=== PATIENT | male | born 1960 | race African-American/Black ===

== ENCOUNTER 2016-06-07 19:01 | Inpatient (IN) | payer MEDICAID ==
[~2016-06-07] VITALS: Ht 175.3 cm; Wt 91.2 kg
[2016-06-07 19:30] VITALS: BP 127/87
[2016-06-07] MEDS ORDERED: METFORMIN HCL500 M1 ORAL (19:32)
[2016-06-07] MEDS ORDERED: ATORVASTATIN CA20 MG ORAL (19:32)
[2016-06-07] MEDS ORDERED: BENAZEPRIL HCL20 MG ORAL (19:32)
[2016-06-07] MEDS ORDERED: ASPIR 8181 MG ORAL (19:32)
[2016-06-07] MEDS ORDERED: CARVEDILOL25 MG ORAL (19:32)
[2016-06-07] MEDS ORDERED: Famotidine 20 MG/ 2ML VIAL IVP ONE (20:15)
[2016-06-07] MEDS ORDERED: Aspirin Baby 81mg ORAL ONE (20:15)
[2016-06-07] MEDS ORDERED: Nitroglycerin 2% oint pkt TOPIC ONE (20:15)
[2016-06-07 21:23] LABS: INR 1.3 (0.9-1.1); PROTHROMBIN TIME 13.4 SEC (9.30-11.50)
[2016-06-07 21:33] LABS: ALANINE AMINOTRANSFERASE 24 U/L (3-41); ALBUMIN/GLOBULIN RATIO 1.8 (1.0-2.7); ANION GAP 18 (5-15); ASPARTATE AMINO TRANSFERASE 34 U/L (5-40); BASOPHILS % (AUTO) 1.1 % (0.0-2.0); CALCIUM 9.3 mg/dL (8.6-10.2); CARBON DIOXIDE 20 mEQ/L (20-30); CHLORIDE 104 mEQ/L (98-107); CREATININE 1.4 mg/dL (0.7-1.2); EOSINOPHILS % (AUTO) 0.5 % (0.0-3.0); GLOMERULAR FILTRATION RATE > 60 mL/min (>60); HEMOLYSIS 28; LIPASE 21 U/L (< 60); LYMPHOCYTES % (AUTO) 23.2 % (20.0-45.0); MEAN CORPUSCULAR HEMOGLOBIN 27.5 PG (27.0-31.0); MEAN CORPUSCULAR HGB CONC 33.4 G/DL (32.0-36.0); MEAN CORPUSCULAR VOLUME 82 FL (80-99); MEAN PLATELET VOLUME 8.4 FL (6.5-10.1); MONOCYTES % (AUTO) 8.2 % (1.0-10.0); NEUTROPHILS % (AUTO) 66.9 % (45.0-75.0); PLATELET COUNT 159 K/UL (150-450); POTASSIUM 4.1 mEQ/L (3.4-4.9); RED BLOOD COUNT 4.52 M/UL (4.70-6.10); RED CELL DISTRIBUTION WIDTH 14.2 % (11.6-14.8); SODIUM 142 mEQ/L (135-145); TOTAL PROTEIN 6.2 g/dL (6.6-8.7); TROPONIN I < 0.30 ng/mL (<=0.30); WHITE BLOOD COUNT 8.7 K/UL (4.8-10.8)
[2016-06-07 21:53] LABS: BILIRUBIN,DIRECT 0.5 mg/dL (0.1-0.3)
--- NOTE | 2016-06-07 22:22 | Emergency Room Report ---
History of Present Illness General Chief Complaint: General Complaint Source: Patient Present Illness HPI The patient presents with severe orthopnea. This has been going on for several days. He's had a pacemaker placed in the past. He also presents with severe epigastric pain for the last 2 days. He's taken lemon juice and other over-the- counter things to help with that. The pain is sharp and is epigastric area radiating up towards his back and his chest. The patient denies having this problem before. The pain is currently 8/10, burning and sharp pressure, not radiating. After finding a flutter on his EKG the patient admits to have atrial flutter in the past. He states he is taking his medications as they have been prescribed. He states he has had an enlarged heart since childhood. No fevers, cough, sore throat, chest pain per se, productive sputum, headache, rashes, NVD, dysuria, extremity/calf pain. Allergies: Coded Allergies: No Known Allergies (Unverified , 06/07/16) Patient History Past Medical History: see triage record Past Surgical History: pacemaker Social History: Reports: smoking Social History Narrative at home Reviewed Nursing Documentation: PMH: Agreed, PSxH: Agreed Nursing Documentation-PMH Past Medical History: No History, Except For Hx Pacemaker: Yes - LEFT SIDE Review of Systems All Other Systems: negative except mentioned in HPI Physical Exam Vital Signs Date Time Temp Pulse Resp B/P Pulse Ox O2 Delivery O2 Flow Rate FiO2 06/07/16 19:25 98.1 127 20 127/87 98 Room Air Sp02 EP Interpretation: reviewed, normal General Appearance: well appearing, no apparent distress, GCS 15 Head: normocephalic Eyes: bilateral eye PERRL, bilateral eye normal inspection ENT: moist mucus membranes Neck: supple Respiratory: no respiratory distress, crackles, rales, other - L pacer Cardiovascular #1: tachycardia, irregularly irregular, edema - trace bilaterally Cardiovascular #2: 2+ radial (R) Gastrointestinal: normal bowel sounds, no guarding, distended, hepatomegaly Musculoskeletal: digits/nails normal, gait/station normal, no calf tenderness, pelvis stable Neurologic: alert, oriented x3, grossly normal Psychiatric: mood/affect normal Skin: normal inspection, warm/dry Medical Decision Making Diagnostic Impression: Primary Impression: Atrial flutter Qualified Codes: I48.92 - Unspecified atrial flutter Additional Impressions: CHF (congestive heart failure) Qualified Codes: I50.9 - Heart failure, unspecified Epigastric pain Hepatic congestion ER Course Patient presents with epigastric pain and orthopnea. The latter sounds classically for CHF. Ddx: AMI, ACS, CHF, bronchitis, COPD, pneumonia, PE. Emergent evaluation for AMI, arrhythmia, with EKG, labs, CXR. Treatment with aspirin, nitrates, lasix. EKG with atrial flutter with variable conduction, but rapid rate. Hemodynamically stable therefore not cardiovert. Will treat with amiodarone and lasix. After treatment with amiodarone the patient's heart rate is improved. However the patient still is in failure. He says been treated with Lasix. His x-ray shows congestive heart failure. Elevated D dimer needs to have PE excluded. CTA ordered. CTA against PE. + CHF, pericardial effusion. The patient is admitted to the hospital for cardiac stabilization in addition to that - diuresis. The patient to telemetry to the care of Dr. George. Laboratory Tests Test 06/07/16 20:47 06/07/16 23:00 White Blood Count 8.7 K/UL (4.8-10.8) Red Blood Count 4.52 M/UL (4.70-6.10) L Hemoglobin 12.4 G/DL (14.2-18.0) L Hematocrit 37.2 % (42.0-52.0) L Mean Corpuscular Volume 82 FL (80-99) Mean Corpuscular Hemoglobin 27.5 PG (27.0-31.0) Mean Corpuscular Hemoglobin Concent 33.4 G/DL (32.0-36.0) Red Cell Distribution Width 14.2 % (11.6-14.8) Platelet Count 159 K/UL (150-450) Mean Platelet Volume 8.4 FL (6.5-10.1) Neutrophils (%) (Auto) 66.9 % (45.0-75.0) Lymphocytes (%) (Auto) 23.2 % (20.0-45.0) Monocytes (%) (Auto) 8.2 % (1.0-10.0) Eosinophils (%) (Auto) 0.5 % (0.0-3.0) Basophils (%) (Auto) 1.1 % (0.0-2.0) Prothrombin Time 13.4 SEC (9.30-11.50) H Prothrombin Time INR 1.3 (0.9-1.1) H PTT 25 SEC (23-33) D-Dimer 640 ng/mL (<500) H Sodium Level 142 mEQ/L (135-145) Potassium Level 4.1 mEQ/L (3.4-4.9) Chloride Level 104 mEQ/L (98-107) Carbon Dioxide Level 20 mEQ/L (20-30) Anion Gap 18 (5-15) H Blood Urea Nitrogen 18 mg/dL (7-23) Creatinine 1.4 mg/dL (0.7-1.2) H Estimate Glomerular Filtration Rate > 60 mL/min (>60) Glucose Level 132 mg/dL (74-106) H Calcium Level 9.3 mg/dL (8.6-10.2) Total Bilirubin 1.4 mg/dL (0.0-1.2) H Direct Bilirubin 0.5 mg/dL (0.1-0.3) H Aspartate Amino Transferase (AST) 34 U/L (5-40) Alanine Aminotransferase (ALT) 24 U/L (3-41) Alkaline Phosphatase 42 U/L (40-129) Total Creatine Kinase 66 U/L (38-174) Troponin I < 0.30 ng/mL (<=0.30) Pro-B-Type Natriuretic Peptide 6765 pg/mL (0-125) H Total Protein 6.2 g/dL (6.6-8.7) L Albumin 4.0 g/dL (3.5-5.2) Globulin 2.2 g/dL Albumin/Globulin Ratio 1.8 (1.0-2.7) Lipase 21 U/L (< 60) Urine Color Yellow Urine Appearance Clear Urine pH 5 (4.5-8.0) Urine Specific [place] 1.015 (1.005-1.035) Urine Protein Negative (NEGATIVE) Urine Glucose (UA) Negative (NEGATIVE) Urine Ketones Negative (NEGATIVE) Urine Occult Blood Negative (NEGATIVE) Urine Nitrite Negative (NEGATIVE) Urine Bilirubin Negative (NEGATIVE) Urine Urobilinogen 4 MG/DL (0.0-1.0) H Urine Leukocyte Esterase Negative (NEGATIVE) Urine Opiates Screen Negative (NEGATIVE) Urine Barbiturates Screen Negative (NEGATIVE) Phencyclidine (PCP) Screen Negative (NEGATIVE) Urine Amphetamines Screen Negative (NEGATIVE) Urine Benzodiazepines Screen Negative (NEGATIVE) Urine Cocaine Screen Negative (NEGATIVE) Urine Marijuana (THC) Screen Negative (NEGATIVE) EKG Diagnostic Results Rate: tachycardiac Rhythm: other - atrial flutter with rapid conduction ST Segments: no acute changes Rhythm Strip Diag. Results EP Interpretation: yes Rhythm: no PVC's, other - atrial flutter Chest X-Ray Diagnostic Results EP Interpretation: Yes Findings: no effusion, no pneumothorax, other - inc cor, chf, pacer Number of Views: 1 CT/MRI/US Diagnostic Results CT/MRI/US Diagnostic Results : Imaging Test Ordered: CTA chest Impression Impression: Negative for evidence of acute pulmonary embolus Inadequate opacification of the thoracic aorta. While there is no evidence of aneurysm, dissection cannot be ruled out Dilated main pulmonary artery, indicative of pulmonary arterial hypertension Four-chamber cardiomegaly Calcification of the left ventricular apex, likely indicating old infarct and possible early left ventricular aneurysm formation. Diffuse groundglass opacity throughout the pulmonary parenchyma. Nonspecific, but most likely indicating pulmonary edema, given the other findings Borderline mediastinal lymphadenopathy Pacemaker Bilateral pleural effusions Small cystic spaces in both lungs, may be postinflammatory or indicate COPD changes Last Vital Signs Date Time Temp Pulse Resp B/P Pulse Ox O2 Delivery O2 Flow Rate FiO2 06/08/16 00:20 96.6 106 22 119/82 92 Nasal Cannula 2.0 Status: improved Disposition: ADMITTED INPATIENT Condition: Serious Referrals: NOT CHOSEN IPA/,REFERRING (PCP) Michael Bellamy M.D. Jun 07, 2016 22:22
[2016-06-07] MEDS ORDERED: Metoprolol 5mg/5ml Inj IVP PRN (22:30)
[2016-06-07] MEDS ORDERED: Enalaprilat 2.5mg/2ml Inj IV PRN (22:30)
[2016-06-07] MEDS ORDERED: Diltiazem 25mg/5ml IV PRN (22:30)
[2016-06-07] MEDS ORDERED: Nitroglycerin Subl 0.4mg tab (Bottle Of 25) SL PRN (22:30)
[2016-06-07] MEDS ORDERED: DuoNeb 0.5-3(2.5)mg/3ml neb HHN PRN (22:30)
[2016-06-07] MEDS ORDERED: Morphine Sulfate 2mg/ml Inj IVP PRN (22:30)
[2016-06-07] MEDS ORDERED: Miralax 17gm pkt ORAL PRN (22:30)
[2016-06-07 23:11] VITALS: BP 113/85
[2016-06-07 23:22] LABS: APPEARANCE,URINE CLEAR; KETONES,URINE NEGATIVE (NEGATIVE); LEUKOCYTE ESTERASE ,URINE NEGATIVE (NEGATIVE); NITRITE,URINE NEGATIVE (NEGATIVE); PH,URINE 5 (4.5-8.0); PROTEIN,URINE NEGATIVE (NEGATIVE); UROBILINOGEN,URINE 4 MG/DL (0.0-1.0)
[2016-06-08 00:20] VITALS: BP 119/82
[2016-06-08 04:20] VITALS: BP 127/80
[2016-06-08 08:34] VITALS: BP 121/81
--- NOTE | 2016-06-08 08:53 | Cardiology Progress Note ---
Assessment/Plan Assessment/Plan afib flutter chf cm? ?lv calcified aneurysm dm htn cri hyperlipidemia ppi need anticoagualtion heparin coumadin i doubt coverage with noacs dc coreg to metoprolo fo r hr control diuretics acei echo wath renal fx [id number] Objective Last 24 Hour Vital Signs Date Time Temp Pulse Resp B/P Pulse Ox O2 Delivery O2 Flow Rate FiO2 06/08/16 08:34 96.3 114 20 121/81 97 Nasal Cannula 3.0 06/08/16 07:57 97 Nasal Cannula 3.0 32 06/08/16 07:56 Nasal Cannula 3.0 32 06/08/16 07:55 114 20 Nasal Cannula 3.0 32 06/08/16 04:20 97.2 119 20 127/80 Nasal Cannula 2.0 06/08/16 03:39 107 06/08/16 00:20 96.6 106 22 119/82 92 Nasal Cannula 2.0 06/07/16 23:53 107 06/07/16 23:26 98.1 98 20 113/85 98 Nasal Cannula 2.0 06/07/16 23:11 98.1 98 20 113/85 98 Nasal Cannula 2.0 06/07/16 20:46 109/54 06/07/16 19:30 98.1 123 20 127/87 98 Room Air 06/07/16 19:25 98.1 127 20 127/87 98 Room Air Laboratory Tests Test 06/07/16 20:47 06/07/16 23:00 White Blood Count 8.7 K/UL (4.8-10.8) Red Blood Count 4.52 M/UL (4.70-6.10) L Hemoglobin 12.4 G/DL (14.2-18.0) L Hematocrit 37.2 % (42.0-52.0) L Mean Corpuscular Volume 82 FL (80-99) Mean Corpuscular Hemoglobin 27.5 PG (27.0-31.0) Mean Corpuscular Hemoglobin Concent 33.4 G/DL (32.0-36.0) Red Cell Distribution Width 14.2 % (11.6-14.8) Platelet Count 159 K/UL (150-450) Mean Platelet Volume 8.4 FL (6.5-10.1) Neutrophils (%) (Auto) 66.9 % (45.0-75.0) Lymphocytes (%) (Auto) 23.2 % (20.0-45.0) Monocytes (%) (Auto) 8.2 % (1.0-10.0) Eosinophils (%) (Auto) 0.5 % (0.0-3.0) Basophils (%) (Auto) 1.1 % (0.0-2.0) Prothrombin Time 13.4 SEC (9.30-11.50) H Prothromb Time International Ratio 1.3 (0.9-1.1) H Activated Partial Thromboplast Time 25 SEC (23-33) D-Dimer 640 ng/mL (<500) H Sodium Level 142 mEQ/L (135-145) Potassium Level 4.1 mEQ/L (3.4-4.9) Chloride Level 104 mEQ/L (98-107) Carbon Dioxide Level 20 mEQ/L (20-30) Anion Gap 18 (5-15) H Blood Urea Nitrogen 18 mg/dL (7-23) Creatinine 1.4 mg/dL (0.7-1.2) H Estimat Glomerular Filtration Rate > 60 mL/min (>60) Glucose Level 132 mg/dL (74-106) H Calcium Level 9.3 mg/dL (8.6-10.2) Total Bilirubin 1.4 mg/dL (0.0-1.2) H Direct Bilirubin 0.5 mg/dL (0.1-0.3) H Aspartate Amino Transf (AST/SGOT) 34 U/L (5-40) Alanine Aminotransferase (ALT/SGPT) 24 U/L (3-41) Alkaline Phosphatase 42 U/L (40-129) Total Creatine Kinase 66 U/L (38-174) Troponin I < 0.30 ng/mL (<=0.30) Pro-B-Type Natriuretic Peptide 6765 pg/mL (0-125) H Total Protein 6.2 g/dL (6.6-8.7) L Albumin 4.0 g/dL (3.5-5.2) Globulin 2.2 g/dL Albumin/Globulin Ratio 1.8 (1.0-2.7) Lipase 21 U/L (< 60) Urine Color Yellow Urine Appearance Clear Urine pH 5 (4.5-8.0) Urine Specific [place] 1.015 (1.005-1.035) Urine Protein Negative (NEGATIVE) Urine Glucose (UA) Negative (NEGATIVE) Urine Ketones Negative (NEGATIVE) Urine Occult Blood Negative (NEGATIVE) Urine Nitrite Negative (NEGATIVE) Urine Bilirubin Negative (NEGATIVE) Urine Urobilinogen 4 MG/DL (0.0-1.0) H Urine Leukocyte Esterase Negative (NEGATIVE) Urine Opiates Screen Negative (NEGATIVE) Urine Barbiturates Screen Negative (NEGATIVE) Phencyclidine (PCP) Screen Negative (NEGATIVE) Urine Amphetamines Screen Negative (NEGATIVE) Urine Benzodiazepines Screen Negative (NEGATIVE) Urine Cocaine Screen Negative (NEGATIVE) Urine Marijuana (THC) Screen Negative (NEGATIVE) AUBRIE TRIVEDI Jun 08, 2016 08:53
[2016-06-08] MEDS ORDERED: Carvedilol 25mg Tab ORAL SCH (09:00)
[2016-06-08] MEDS ORDERED: Heparin 5000 units/ml inj IV ONE ×3 (09:30→23:30)
[2016-06-08] MEDS ORDERED: Heparin 25,000u/D5W 500ml 500 ML IV SCH (09:30)
[2016-06-08] MEDS: Metoprolol 25mg tab ORAL SCH ×2 (09:52→22:21)
[2016-06-08] MEDS: Lisinopril 20mg tab ORAL SCH (09:54)
[2016-06-08] MEDS: Digoxin 0.5mg/2ml Inj IVP SCH (09:54)
[2016-06-08] MEDS: Aspirin EC 81mg tab ORAL SCH (09:54)
[2016-06-08 10:24] LABS: BASOPHILS % (AUTO) 0.8 % (0.0-2.0); EOSINOPHILS % (AUTO) 0.4 % (0.0-3.0); LYMPHOCYTES % (AUTO) 19.3 % (20.0-45.0); MEAN CORPUSCULAR HEMOGLOBIN 26.5 PG (27.0-31.0); MEAN CORPUSCULAR HGB CONC 32.6 G/DL (32.0-36.0); MEAN CORPUSCULAR VOLUME 81 FL (80-99); MEAN PLATELET VOLUME 7.1 FL (6.5-10.1); MONOCYTES % (AUTO) 8.4 % (1.0-10.0); NEUTROPHILS % (AUTO) 71.2 % (45.0-75.0); PLATELET COUNT 174 K/UL (150-450); RED BLOOD COUNT 4.69 M/UL (4.70-6.10); RED CELL DISTRIBUTION WIDTH 14.3 % (11.6-14.8); WHITE BLOOD COUNT 8.1 K/UL (4.8-10.8)
--- NOTE | 2016-06-08 10:35 | Diagnostic Imaging Report ---
ndication: Chest pain Technique: IV administration nonionic contrast. Spiral acquisitions obtained from the lung bases to the lung apices. Multiplanar and 3-D reconstructions were generated. Total dose length product 98 mGycm. CTDIvol(s) 12, 1:30, 23 mGy Comparison: None Findings: There is good quality opacification of the pulmonary arteries. However, apparently due to very sluggish flow, the thoracic aorta is barely if at all opacified. Although there is no evidence of thoracic aortic aneurysm, dissection cannot be confidently ruled out. There are no findings to suggest acute pulmonary embolus. There is dilatation of the main pulmonary artery, which measures 4 cm in diameter and is larger in caliber than the ascending thoracic aorta. There is no evidence of isolated right ventricular dilatation, but there is generalized cardiomegaly. There is calcification of the myocardium of the left ventricular apex. There is a left chest pacemaker. There is diffuse groundglass opacity throughout both lungs, occupying most of the lungs with some areas of sparing. There are is small right and trace left pleural effusion. There are scattered small cystic spaces in both lungs. There are numerous borderline enlarged mediastinal lymph nodes, with the largest right paratracheal node measuring 2.4 cm long axis dimension. The included portions of the thyroid are unremarkable. No axillary or supraclavicular or chest wall mass or adenopathy. The included upper abdominal anatomy is unremarkable. Impression: Negative for evidence of acute pulmonary embolus Inadequate opacification of the thoracic aorta. While there is no evidence of aneurysm, dissection cannot be ruled out Dilated main pulmonary artery, indicative of pulmonary arterial hypertension Four-chamber cardiomegaly Calcification of the left ventricular apex, likely indicating old infarct and possible early left ventricular aneurysm formation. Diffuse groundglass opacity throughout the pulmonary parenchyma. Nonspecific, but most likely indicating pulmonary edema, given the other findings Borderline mediastinal lymphadenopathy Pacemaker Bilateral pleural effusions Small cystic spaces in both lungs, may be postinflammatory or indicate COPD changes This agrees with the preliminary interpretation provided overnight by [facility]. The CT scanner at [facility] is accredited by the [employer] and the scans are performed using protocols designed to limit radiation exposure to as low as reasonably achievable to attain images of sufficient resolution adequate for diagnostic evaluation.
[2016-06-08 10:50] LABS: INR 1.3 (0.9-1.1); PROTHROMBIN TIME 13.6 SEC (9.30-11.50)
--- NOTE | 2016-06-08 10:57 | Diagnostic Imaging Report ---
Indication: Chest Technique: One view of the chest Comparison: none Findings: The heart is enlarged. There is a left chest AICD. Diffuse hazy opacities are seen throughout both lungs. There is slight blunting of left costophrenic sulcus Impression: Cardiomegaly Bilateral diffuse pulmonary hazy opacities, nonspecific, but suspect on the basis of congestive heart failure AICD This agrees with the preliminary interpretation provided by the emergency room physician
[2016-06-08 11:30] VITALS: BP 115/69
[2016-06-08] MEDS: NovoLOG Insulin Flexpen SUBQ SCH ×3 (11:30→21:00)
--- NOTE | 2016-06-08 14:37 | Cardiology Report ---
APPROVED REPORT EXAM: Two-dimensional and M-mode echocardiogram with Doppler and color Doppler. INDICATION Left ventricular function M-Mode DIMENSIONS IVSd0.8 (0.7-1.1cm)Left Atrium (MM)5.6 (1.6-4.0cm) LVDd8.1 (3.5-5.6cm)Aortic Root2.9 (2.0-3.7cm) PWd1.1 (0.7-1.1cm)Aortic Cusp Exc.2.0 (1.5-2.0cm) LVDs7.5 (2.5-4.0cm) PWs1.2 cm Severe left ventricular enlargement. Global left ventricular hypokinesis. Thinning of basal anterior septum with anterior wall, apical and septal akinesis. Left ventricular ejection fraction estimated to be less than 20%. No evidence of left ventricular hypertrophy. No evidence of pericardial fat or effusion. Severe left atrial enlargement by 2D. Moderate right atrial and mild right ventricular enlargement by 2D. Focal aortic valve sclerosis with adequate cusp excursion Thickened mitral valve leaflets with normal excursion. Mild mitral annulus and aortic root calcification. Pulmonic valve is well visualized. Normal tricuspid valve structure. IVC dilated at 2.9cm with no physiologic collapse. RA pressure of 20mmHg. Probable pacemaker wire present in the right side chambers. Echo density seen on left ventricle apex (Thrombis), consider KRISTIAN if clinically indicated. A color flow and spectral Doppler study was performed and revealed: No aortic regurgitation. Severe mitral regurgitation. Left ventricular diastolic dysfunction not obtainable due to A-FIB. Moderate tricuspid regurgitation. Tricuspid systolic velocities suggests peak right ventricular systolic pressure of 76 mmHg Consistent with severe pulmonary hypertension. Clinical criteria: JORGE Viera and were aware on 06/08/16 at 12pm
--- NOTE | 2016-06-08 14:54 | History and Physical ---
History of Present Illness General Date patient seen: Jun 08, 2016 Reason for Hospitalization: General Complaint Present Illness HPI 56 year old with PMHx of congenital cardiomyopathy and ICD, presented to ER with CC of increased shortness of breath for the last two days. He also had some gi symptoms with dyspepsia. Allergies: Coded Allergies: No Known Allergies (Unverified , 06/07/16) Medication History Scheduled Aspirin* (Aspir 81*), 81 MG ORAL DAILY, (Reported) Atorvastatin Calcium* (Atorvastatin Calcium*), 80 MG ORAL BEDTIME, (Reported) Benazepril Hcl* (Benazepril Hcl*), 20 MG ORAL EVERY 12 HOURS, (Reported) Carvedilol* (Carvedilol*), 25 MG ORAL EVERY 12 HOURS, (Reported) Metformin Hcl* (Metformin Hcl*), Unknown Dose ORAL TWICE A DAY, (Reported) Patient History Healthcare decision maker pt alert and oriented Resuscitation status Full Code Advanced Directive on File No Past Medical/Surgical History Past Medical/Surgical History: (1) ICD (implantable cardioverter-defibrillator) in place (2) CHF (congestive heart failure) Review of Systems Constitutional: Reports: weakness Respiratory: Reports: shortness of breath Physical Exam General Appearance: moderate distress Lines, tubes and drains: peripheral, central line HEENT: normocephalic, anicteric Neck: non-tender, normal alignment Respiratory/Chest: chest wall non-tender, lungs clear Last 24 Hour Vital Signs Date Time Temp Pulse Resp B/P Pulse Ox O2 Delivery O2 Flow Rate FiO2 06/08/16 11:30 97.2 96 20 115/69 100 Nasal Cannula 3.0 06/08/16 09:54 121/81 06/08/16 09:54 114 06/08/16 09:52 114 121/81 06/08/16 08:34 96.3 114 20 121/81 97 Nasal Cannula 3.0 06/08/16 08:00 102 06/08/16 07:57 97 Nasal Cannula 3.0 32 06/08/16 07:56 Nasal Cannula 3.0 32 06/08/16 07:55 114 20 Nasal Cannula 3.0 32 06/08/16 04:20 97.2 119 20 127/80 Nasal Cannula 2.0 06/08/16 03:39 107 06/08/16 00:20 96.6 106 22 119/82 92 Nasal Cannula 2.0 06/07/16 23:53 107 06/07/16 23:26 98.1 98 20 113/85 98 Nasal Cannula 2.0 06/07/16 23:11 98.1 98 20 113/85 98 Nasal Cannula 2.0 06/07/16 20:46 109/54 06/07/16 19:30 98.1 123 20 127/87 98 Room Air 06/07/16 19:25 98.1 127 20 127/87 98 Room Air Intake and Output 06/07/16 06/08/16 19:00 07:00 # Voids 2 Laboratory Tests Test 06/07/16 20:47 06/07/16 23:00 06/08/16 09:45 White Blood Count 8.7 K/UL (4.8-10.8) 8.1 K/UL (4.8-10.8) Red Blood Count 4.52 M/UL (4.70-6.10) L 4.69 M/UL (4.70-6.10) L Hemoglobin 12.4 G/DL (14.2-18.0) L 12.4 G/DL (14.2-18.0) L Hematocrit 37.2 % (42.0-52.0) L 38.1 % (42.0-52.0) L Mean Corpuscular Volume 82 FL (80-99) 81 FL (80-99) Mean Corpuscular Hemoglobin 27.5 PG (27.0-31.0) 26.5 PG (27.0-31.0) L Mean Corpuscular Hemoglobin Concent 33.4 G/DL (32.0-36.0) 32.6 G/DL (32.0-36.0) Red Cell Distribution Width 14.2 % (11.6-14.8) 14.3 % (11.6-14.8) Platelet Count 159 K/UL (150-450) 174 K/UL (150-450) Mean Platelet Volume 8.4 FL (6.5-10.1) 7.1 FL (6.5-10.1) Neutrophils (%) (Auto) 66.9 % (45.0-75.0) 71.2 % (45.0-75.0) Lymphocytes (%) (Auto) 23.2 % (20.0-45.0) 19.3 % (20.0-45.0) L Monocytes (%) (Auto) 8.2 % (1.0-10.0) 8.4 % (1.0-10.0) Eosinophils (%) (Auto) 0.5 % (0.0-3.0) 0.4 % (0.0-3.0) Basophils (%) (Auto) 1.1 % (0.0-2.0) 0.8 % (0.0-2.0) Prothrombin Time 13.4 SEC (9.30-11.50) H 13.6 SEC (9.30-11.50) H Prothromb Time International Ratio 1.3 (0.9-1.1) H 1.3 (0.9-1.1) H Activated Partial Thromboplast Time 25 SEC (23-33) 25 SEC (23-33) D-Dimer 640 ng/mL (<500) H Sodium Level 142 mEQ/L (135-145) Potassium Level 4.1 mEQ/L (3.4-4.9) Chloride Level 104 mEQ/L (98-107) Carbon Dioxide Level 20 mEQ/L (20-30) Anion Gap 18 (5-15) H Blood Urea Nitrogen 18 mg/dL (7-23) Creatinine 1.4 mg/dL (0.7-1.2) H Estimat Glomerular Filtration Rate > 60 mL/min (>60) Glucose Level 132 mg/dL (74-106) H Calcium Level 9.3 mg/dL (8.6-10.2) Total Bilirubin 1.4 mg/dL (0.0-1.2) H Direct Bilirubin 0.5 mg/dL (0.1-0.3) H Aspartate Amino Transf (AST/SGOT) 34 U/L (5-40) Alanine Aminotransferase (ALT/SGPT) 24 U/L (3-41) Alkaline Phosphatase 42 U/L (40-129) Total Creatine Kinase 66 U/L (38-174) Troponin I < 0.30 ng/mL (<=0.30) Pro-B-Type Natriuretic Peptide 6765 pg/mL (0-125) H Total Protein 6.2 g/dL (6.6-8.7) L Albumin 4.0 g/dL (3.5-5.2) Globulin 2.2 g/dL Albumin/Globulin Ratio 1.8 (1.0-2.7) Lipase 21 U/L (< 60) Urine Color Yellow Urine Appearance Clear Urine pH 5 (4.5-8.0) Urine Specific [place] 1.015 (1.005-1.035) Urine Protein Negative (NEGATIVE) Urine Glucose (UA) Negative (NEGATIVE) Urine Ketones Negative (NEGATIVE) Urine Occult Blood Negative (NEGATIVE) Urine Nitrite Negative (NEGATIVE) Urine Bilirubin Negative (NEGATIVE) Urine Urobilinogen 4 MG/DL (0.0-1.0) H Urine Leukocyte Esterase Negative (NEGATIVE) Urine Opiates Screen Negative (NEGATIVE) Urine Barbiturates Screen Negative (NEGATIVE) Phencyclidine (PCP) Screen Negative (NEGATIVE) Urine Amphetamines Screen Negative (NEGATIVE) Urine Benzodiazepines Screen Negative (NEGATIVE) Urine Cocaine Screen Negative (NEGATIVE) Urine Marijuana (THC) Screen Negative (NEGATIVE) Height (Feet): 5 Height (Inches): 9.00 Weight (Pounds): 201 Medications Current Medications Medications (Trade) Dose Ordered Sig/Ana Route PRN Reason Start Time Stop Time Status Last Admin Dose Admin Acetaminophen (Tylenol) 650 mg Q4H PRN ORAL FEVER 06/07/16 22:30 07/07/16 22:29 Albuterol/ Ipratropium (DuoNeb 0.5-3(2.5)mg/3ml) 3 ml EVERY 4 HOURS PRN HHN Shortness of Breath 06/07/16 22:30 06/12/16 22:29 Aspirin (Ecotrin) 81 mg DAILY ORAL 06/08/16 09:00 07/08/16 08:59 06/08/16 09:54 Atorvastatin Calcium (Lipitor) 80 mg BEDTIME ORAL 06/08/16 21:00 07/08/16 20:59 Digoxin (Lanoxin) 0.25 mg DAILY IVP 06/08/16 09:00 07/08/16 08:59 06/08/16 09:54 Diltiazem HCl (Cardizem) 10 mg EVERY HOUR PRN IV heart rate more than 120, 06/07/16 22:30 07/07/16 22:29 Enalaprilat (Vasotec) 2.5 mg EVERY 6 HOURS PRN IV sbp more than 160 06/07/16 22:30 07/07/16 22:29 Furosemide (Lasix) 40 mg EVERY 8 HOURS IV 06/08/16 09:30 07/08/16 09:29 06/08/16 09:54 Heparin Sodium/ Dextrose (Heparin) 500 ml @ 32.822 mls/ hr adjust per protocol IV 06/08/16 09:30 07/08/16 09:29 Insulin Aspart (NovoLOG) BEFORE MEALS AND HS SUBQ 06/08/16 11:30 07/08/16 11:29 Lisinopril 20 mg 20 mg DAILY ORAL 06/08/16 09:00 07/08/16 08:59 06/08/16 09:54 Metoprolol Tartrate (Lopressor) 5 mg EVERY HOUR PRN IVP heart rate more than 140 06/07/16 22:30 07/07/16 22:29 Metoprolol Tartrate (Lopressor) 25 mg Q12HR ORAL 06/08/16 09:30 07/08/16 09:29 06/08/16 09:52 Morphine Sulfate (Morphine Sulfate) 2 mg EVERY 4 HOURS PRN IVP severe Pain (Pain Scale 7-10) 06/07/16 22:30 06/14/16 22:29 Nitroglycerin (Ntg) 0.4 mg Every 5 Minutes PRN SL Prn Chest Pain 06/07/16 22:30 07/07/16 22:29 Ondansetron HCl (Zofran) 4 mg Q6H PRN IVP Nausea & Vomiting 06/07/16 22:30 07/07/16 22:29 Pantoprazole (Protonix) 40 mg DAILY ORAL 06/08/16 09:00 07/08/16 08:59 06/08/16 09:52 Temazepam (Restoril) 15 mg HSPRN PRN ORAL Insomnia 06/07/16 22:30 06/14/16 22:29 Warfarin Sodium (Coumadin per pharmacy) 1 ea DAILY PRN MISC Per rx protocol 06/08/16 12:00 07/08/16 11:59 Warfarin Sodium (Coumadin) 5 mg COUMADIN ONCE ORAL 06/08/16 17:00 06/08/16 17:01 Assessment/Plan Problem List: (1) Atrial flutter ICD Codes: I48.92 - Unspecified atrial flutter SNOMED: 1219328 Qualifiers: Qualified Codes: I48.92 - Unspecified atrial flutter (2) Pulmonary edema ICD Codes: J81.1 - Chronic pulmonary edema SNOMED: 38857724 (3) Ventricular mural thrombus SNOMED: 12462793 (4) ICD (implantable cardioverter-defibrillator) in place ICD Codes: Z95.810 - Presence of automatic (implantable) cardiac defibrillator SNOMED: 160925720, [id number] Assessment/Plan IV heparin cardio evaluation optimize cardiac meds. SHIMON WILLAMS Jun 08, 2016 14:54
[2016-06-08 16:00] VITALS: BP 121/68
[2016-06-08] MEDS ORDERED: Warfarin Sodium 5mg ORAL ONE (17:00)
[2016-06-08 20:00] VITALS: BP 117/75
[2016-06-08] MEDS ORDERED: Atorvastatin 80mg tab ORAL SCH (21:00)
--- NOTE | 2016-06-08 22:38 | Consultation ---
DATE OF CONSULTATION: 06/08/2016 CARDIOLOGY CONSULTATION CONSULTING PHYSICIAN: Maxime Plata M.D. REFERRING PHYSICIAN: Cate George M.D. REASON FOR EVALUATION: Shortness of breath and atrial fibrillation/flutter. HISTORY OF PRESENT ILLNESS: This is a middle-aged gentleman, who has a history of myocardial infarction 12 to 15 years ago, which apparently he had a stent placed. Subsequently, he has had a pacemaker implanted. He has multiple medical problems as delineated below. He presented to the hospital because of sensation of fullness in the abdominal area for about few days and caused him to have some shortness of breath at night, which he wake up because of shortness of breath. He uses one pillow, laid down for a few minutes and wake up again. He does not have any problem when he walks around. He does not have any chest pain, no pressure, heaviness, or discomfort of any kind in the chest. He does not have any shortness of breath with ambulation, when he lays down he has had this shortness of breath. He does not really have any heartburn or palpitation. No dizziness or lightheadedness. PAST MEDICAL HISTORY: Positive for diabetes, high blood pressure, high cholesterol, and a heart attack with stent placement pacemaker implantation, possibly asthma. No cancer. No stroke. No hepatitis or tuberculosis. He does have a remote history of ulcers. He does have some renal insufficiency. No liver problems, thyroid problems, anemia, or arthritis. ALLERGIES: He is not allergic to any medications. SOCIAL HISTORY: He smokes one pack, last time a couple of days. He does not drink alcoholic beverages. Denies any drug use. 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 REVIEW OF SYSTEMS: Gastrointestinal: No nausea, vomiting, diarrhea, or constipation. Genitourinary: Negative. Pulmonary: Negative. Constitutional: Negative. Neurologic: Negative. PHYSICAL EXAMINATION: GENERAL: Shows a middle-aged gentleman, in no apparent respiratory distress. NECK: Supple. No jugular venous distention. LUNGS: Decreased breath sounds noted. Crackles noted bilaterally. CARDIAC: Irregularly irregular. No heaves, thrills, or gallops noted. ABDOMEN: Soft and nontender. Positive bowel sounds. EXTREMITIES: There is no clubbing, cyanosis, or edema. NEUROLOGIC: He is awake, alert, responsive, and in no apparent respiratory distress. LABORATORY AND DIAGNOSTIC DATA: Laboratory values, his white count 8.7, hemoglobin 12.4, and a platelet count of 159,00. His sodium is 142, potassium 4.1, chloride 104, bicarbonate 20, BUN of 18, creatinine 1.4, and a glucose of 132. Bilirubin of 1.4. Troponin less than 0.3. ProBNP of 6765. Albumin of 4.0. Coags, INR 1.3 and a PTT of 25. D-dimer 640. Toxicology screen was negative. Urinalysis is 4+ urobilinogen. He had a CT scan of the chest that showed cardiomegaly more from the left and small pericardial effusion, small bilateral pleural effusions, septal thickening with focal suggestive of edema and calcification of left ventricular apex, questionable aneurysm. There is no pulmonary embolism apparently. EKG shows delay in R-wave progression suggestive of old anterior septal infarction, atrial fibrillation/flutter with leftward axis, some nonspecific T-wave changes. I am unable to review the patient's chest x-ray or CT scan unfortunately not able to . ASSESSMENT: 1. Atrial fibrillation/flutter unknown duration. 2. Congestive heart failure. 3. History of permanent pacemaker implantation. 4. History of prior myocardial infarction. 5. Diabetes. 6. Hypertension. 7. Hyperlipidemia. PLAN: Dr. George, this patient was seen in cardiac consultation. The patient's lung exam is quite abnormal and considered for probably an underlying COPD as well as congestive heart failure. Duration of his atrial fibrillation/flutter is unknown. He needs to be on anticoagulation and rate control. He is on Coreg, but that has not seemed to have controlled his heart rate. We will switch him off to metoprolol for better heart rate control. His aspirin and his Lipitor will be continued. He needs to be on anticoagulation with oral medications and I am not sure that no will be covered for him, although he seems to be getting coverage for other medications. In either case, his renal function appears to be mildly abnormal, in which case he will be limited to . 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 Maxime Plata M.D. DR: Barbra JOB#: [id number] CC:
[2016-06-08] MEDS: Heparin 25,000u/D5W 500ml 500 ML IV SCH (23:35)
[2016-06-09 00:31] VITALS: BP 110/77
[2016-06-09 04:00] VITALS: BP 117/68
[2016-06-09] MEDS: Heparin 25,000u/D5W 500ml 500 ML IV SCH (06:06)
[2016-06-09] MEDS: NovoLOG Insulin Flexpen SUBQ SCH ×2 (06:10→11:30)
[2016-06-09 06:15] LABS: EOSINOPHILS % (AUTO) 1.3 % (0.0-3.0); MEAN CORPUSCULAR HEMOGLOBIN 27.4 PG (27.0-31.0); MEAN CORPUSCULAR HGB CONC 34.1 G/DL (32.0-36.0); MEAN CORPUSCULAR VOLUME 80 FL (80-99); MEAN PLATELET VOLUME 7.1 FL (6.5-10.1); MONOCYTES % (AUTO) 8.1 % (1.0-10.0); NEUTROPHILS % (AUTO) 70.5 % (45.0-75.0); PLATELET COUNT 181 K/UL (150-450); RED BLOOD COUNT 5.19 M/UL (4.70-6.10); RED CELL DISTRIBUTION WIDTH 14.6 % (11.6-14.8); WHITE BLOOD COUNT 8.5 K/UL (4.8-10.8)
[2016-06-09 06:28] LABS: INR 1.4 (0.9-1.1)
[2016-06-09 06:55] LABS: TROPONIN I < 0.30 ng/mL (<=0.30)
[2016-06-09 06:58] LABS: ANION GAP 17 (5-15); CALCIUM 9.3 mg/dL (8.6-10.2); CARBON DIOXIDE 28 mEQ/L (20-30); CHLORIDE 98 mEQ/L (98-107); CREATININE 1.4 mg/dL (0.7-1.2); GLOMERULAR FILTRATION RATE > 60 mL/min (>60); HEMOLYSIS 4; MAGNESIUM 1.7 mg/dL (1.7-2.5); POTASSIUM 3.1 mEQ/L (3.4-4.9); SODIUM 143 mEQ/L (135-145)
[2016-06-09] MEDS ORDERED: Heparin 25,000u/D5W 500ml 500 ML IV SCH (07:15)
[2016-06-09 07:52] VITALS: BP 137/78
[2016-06-09] MEDS: Aspirin EC 81mg tab ORAL SCH (09:51)
[2016-06-09] MEDS: Lisinopril 20mg tab ORAL SCH (09:51)
[2016-06-09] MEDS: Metoprolol 25mg tab ORAL SCH (09:51)
[2016-06-09] MEDS: Digoxin 0.5mg/2ml Inj IVP SCH (09:51)
[2016-06-09 11:21] VITALS: BP 143/72
[2016-06-09 14:21] LABS: INR 1.2 (0.9-1.1); PROTHROMBIN TIME 12.7 SEC (9.30-11.50)
--- NOTE | 2016-06-09 14:45 | Diagnostic Imaging Report ---
Indication: Chest pain Comparison: 06/07/16 A single view chest radiograph was obtained. Findings: Pulmonary edema has improved since last study. Heart remains enlarged. Pacemaker again noted. Impression: Resolution of CHF
--- NOTE | 2016-06-09 15:21 | Pulmonology Progress Note ---
Assessment/Plan Problems: (1) Atrial flutter (2) Pulmonary edema (3) Ventricular mural thrombus (4) ICD (implantable cardioverter-defibrillator) in place Assessment/Plan heart rate controlled on heparin pt thinking about signing AMa, I couldn't convince him other [place]. Subjective ROS Limited/Unobtainable: No Constitutional: Reports: no symptoms HEENT: Repors: no symptoms Allergies: Coded Allergies: No Known Allergies (Unverified , 06/07/16) Objective Last 24 Hour Vital Signs Date Time Temp Pulse Resp B/P Pulse Ox O2 Delivery O2 Flow Rate FiO2 06/09/16 12:00 72 06/09/16 11:21 97.1 82 20 143/72 99 Nasal Cannula 2.0 06/09/16 09:51 137/78 06/09/16 09:51 104 137/78 06/09/16 09:51 104 06/09/16 08:15 104 20 Room Air 06/09/16 08:15 Room Air 21 06/09/16 08:15 95 Room Air 21 06/09/16 08:00 88 06/09/16 07:52 97.0 104 20 137/78 95 Room Air 06/09/16 04:00 97.3 71 20 117/68 100 Room Air 06/09/16 04:00 82 06/09/16 00:31 97.0 90 20 110/77 93 Room Air 06/09/16 00:00 89 06/08/16 22:21 91 117/75 06/08/16 20:00 90 06/08/16 20:00 97.2 91 20 117/75 92 Room Air 06/08/16 19:30 94 Room Air 21 06/08/16 19:30 Room Air 21 06/08/16 19:30 100 20 Room Air 21 06/08/16 16:00 97.0 89 20 121/68 95 Room Air 06/08/16 16:00 102 Intake and Output 06/08/16 06/09/16 19:00 07:00 Intake Total 858.619 ml 648.583 ml Output Total 1600 ml Balance 858.619 ml -951.417 ml Intake Oral 770 ml 300 ml IV Total 88.619 ml 348.583 ml Output Urine Total 1600 ml # Voids 5 2 Objective General Appearance: WD/WN Lines, tubes and drains: peripheral, central line HEENT: normocephalic, atraumatic Neck: non-tender, normal alignment Respiratory/Chest: chest wall non-tender, lungs clear Cardiovascular/Chest: normal peripheral pulses Genitourinary/Rectal: normal genital exam Extremities: normal range of motion Laboratory Tests 06/08/16 21:50: Activated Partial Thromboplast Time 39H 06/09/16 05:50: Activated Partial Thromboplast Time 114H, White Blood Count 8.5, Red Blood Count 5.19, Hemoglobin 14.2, Hematocrit 41.7L, Mean Corpuscular Volume 80, Mean Corpuscular Hemoglobin 27.4, Mean Corpuscular Hemoglobin Concent 34.1, Red Cell Distribution Width 14.6, Platelet Count 181, Mean Platelet Volume 7.1, Neutrophils (%) (Auto) 70.5, Lymphocytes (%) (Auto) 19.0L, Monocytes (%) (Auto) 8.1, Eosinophils (%) (Auto) 1.3, Basophils (%) (Auto) 1.0, Prothrombin Time 14.0H, Prothromb Time International Ratio 1.4H, Sodium Level 143, Potassium Level 3.1L, Chloride Level 98, Carbon Dioxide Level 28, Anion Gap 17H, Blood Urea Nitrogen 18, Creatinine 1.4H, Estimat Glomerular Filtration Rate > 60, Glucose Level 155H, Calcium Level 9.3, Magnesium Level 1.7, Troponin I < 0.30, Pro-B-Type Natriuretic Peptide 5970H, Thyroid Stimulating Hormone (TSH) 1.570 06/09/16 13:44: Prothrombin Time 12.7H, Prothromb Time International Ratio 1.2H Current Medications Medications (Trade) Dose Ordered Sig/Ana Route PRN Reason Start Time Stop Time Status Last Admin Dose Admin Acetaminophen (Tylenol) 650 mg Q4H PRN ORAL FEVER 06/07/16 22:30 07/07/16 22:29 Albuterol/ Ipratropium (DuoNeb 0.5-3(2.5)mg/3ml) 3 ml EVERY 4 HOURS PRN HHN Shortness of Breath 06/07/16 22:30 06/12/16 22:29 Aspirin (Ecotrin) 81 mg DAILY ORAL 06/08/16 09:00 07/08/16 08:59 06/09/16 09:51 Atorvastatin Calcium (Lipitor) 80 mg BEDTIME ORAL 06/08/16 21:00 07/08/16 20:59 06/08/16 22:21 Digoxin (Lanoxin) 0.25 mg DAILY IVP 06/08/16 09:00 07/08/16 08:59 06/09/16 09:51 Diltiazem HCl (Cardizem) 10 mg EVERY HOUR PRN IV heart rate more than 120, 06/07/16 22:30 07/07/16 22:29 Enalaprilat (Vasotec) 2.5 mg EVERY 6 HOURS PRN IV sbp more than 160 06/07/16 22:30 07/07/16 22:29 Furosemide (Lasix) 40 mg EVERY 8 HOURS IV 06/08/16 09:30 07/08/16 09:29 06/09/16 15:08 Heparin Sodium/ Dextrose (Heparin) 500 ml @ 34.645 mls/ hr adjust per protocol IV 06/09/16 07:15 07/09/16 07:14 06/09/16 07:23 Insulin Aspart (NovoLOG) BEFORE MEALS AND HS SUBQ 06/08/16 11:30 07/08/16 11:29 Lisinopril 20 mg 20 mg DAILY ORAL 06/08/16 09:00 07/08/16 08:59 06/09/16 09:51 Metoprolol Tartrate (Lopressor) 5 mg EVERY HOUR PRN IVP heart rate more than 140 06/07/16 22:30 07/07/16 22:29 Metoprolol Tartrate (Lopressor) 25 mg Q12HR ORAL 06/08/16 09:30 07/08/16 09:29 06/09/16 09:51 Morphine Sulfate (Morphine Sulfate) 2 mg EVERY 4 HOURS PRN IVP severe Pain (Pain Scale 7-10) 06/07/16 22:30 06/14/16 22:29 Nitroglycerin (Ntg) 0.4 mg Every 5 Minutes PRN SL Prn Chest Pain 06/07/16 22:30 07/07/16 22:29 Ondansetron HCl (Zofran) 4 mg Q6H PRN IVP Nausea & Vomiting 06/07/16 22:30 07/07/16 22:29 Pantoprazole (Protonix) 40 mg DAILY ORAL 06/08/16 09:00 07/08/16 08:59 06/09/16 09:51 Temazepam (Restoril) 15 mg HSPRN PRN ORAL Insomnia 06/07/16 22:30 06/14/16 22:29 Warfarin Sodium (Coumadin per pharmacy) 1 ea DAILY PRN MISC Per rx protocol 06/08/16 12:00 07/08/16 11:59 Warfarin Sodium (Coumadin) 6 mg COUMADIN ONCE ORAL 06/09/16 17:00 06/09/16 17:01 SHIMON WILLAMS Jun 09, 2016 15:21
[2016-06-09 16:00] VITALS: BP 90/54
[2016-06-09] MEDS ORDERED: Warfarin Sodium 3mg ORAL ONE (17:00)
--- NOTE | 2016-06-10 18:19 | Discharge Summary ---
Discharge Summary Hospital Course Date of Admission Jun 07, 2016 at 21:35 Date of Discharge Jun 09, 2016 at 17:35 Admitting Diagnosis atrial flutter HPI Sai Yepez is a 56 year old male who was admitted on Jun 07, 2016 at 21:35 for Atrial Flutter Hospital Course [id number] Discharge Discharge Disposition Patient left AMA Discharge Diagnoses: Siobhan Sifuentes NP Jun 10, 2016 18:19
--- NOTE | 2016-06-11 00:58 | Discharge Summary 2 SIG ---
DATE OF ADMISSION: 06/07/2016 DATE OF DISCHARGE: 06/09/2016 CONSULTANTS: Maxiem Plata M.D. BRIEF HOSPITAL COURSE: The patient is a 56-year-old male with history of congenital cardiomyopathy and ICD, presented to ED complaining of shortness of breath for the past two days with dyspepsia. On evaluation at ED, the patient was in atrial flutter and was given amiodarone and Lasix. X-ray showed congestive heart failure. He had elevated D-dimer and CTA of the chest and thorax was negative for acute PE. Dr. Plata was consulted. The patient has atrial fibrillation and flutter with unknown duration and needs to be on anticoagulation and rate control. He was initially given Coreg, but not seem to have controlled his heart rate. He was switched to metoprolol and was continued on aspirin and Lipitor. He was given heparin and Coumadin. However, full treatment was not carried out as the patient left against medical advice. FINAL DIAGNOSES: 1. Atrial flutter/fibrillation. 2. Pulmonary edema. 3. Implantable cardioverter-defibrillator. 4. Severe pulmonary hypertension. 5. Ventricular mural thrombus. Cate George M.D. I have been assigned to dictate discharge summary on this account and I was not involved in the patient's management. Siobhan Sifuentes N.P. DR: Christofer JOB#: [id number] CC: BLAINE
== END 2016-06-09 17:35 | disposition left against medical advice (07) | DRG 201 ==
LOC: EMR 20:28 → 2W 21:35 → EMR 23:30 → EDBEDREQ 23:33 → 2E 06-08 08:22
DX: I48.92 Unspecified atrial flutter (principal); I42.9 Cardiomyopathy, unspecified; I50.9 Heart failure, unspecified; E11.9 Type 2 diabetes mellitus without complications; E78.5 Hyperlipidemia, unspecified; I25.2 Old myocardial infarction; F17.200 Nicotine dependence, unspecified, uncomplicated; I48.91 Unspecified atrial fibrillation; Z95.0 Presence of cardiac pacemaker; Z79.82 Long term (current) use of aspirin
CPT/HCPCS: 36415; 71010; 71275; 80048; 80053; 80300; 81003; 82248; 82550; 82962; 83690; 83735; 83880; 84443; 84484; 85025; 85379; 85610; 85730; 93005; 93306; 94664; 94760; J0282; J1815

== ENCOUNTER 2016-08-10 03:50 | Inpatient (IN) | payer MEDICAID, OTHER ==
[~2016-08-10] VITALS: Ht 175.3 cm; Wt 83.5 kg
[~2016-08-10 03:50] MED LIST: ASPIR 8181 MG ORAL; ATORVASTATIN CA20 MG ORAL; BENAZEPRIL HCL20 MG ORAL; CARVEDILOL25 MG ORAL; METFORMIN HCL500 M1 ORAL
[2016-08-10] MEDS ORDERED: Ipratropium 0.02% Inh Soln 2.5ml UD HHN ONE (04:00)
[2016-08-10] MEDS ORDERED: Albuterol ud Inhalation HHN ONE (04:00)
[2016-08-10] MEDS ORDERED: Diltiazem 25mg/5ml IV ONE (04:00)
--- NOTE | 2016-08-10 04:07 | Emergency Room Report ---
History of Present Illness General Chief Complaint: Dyspnea/Respdistress Source: Patient Present Illness HPI Patient presents with shortness of breath. He has a history of atrial fibrillation and hypertension. Was admitted last month for rapid atrial fibrillation. He states is not taking any heart medicines per se. He does take medicines for his high blood pressure. He also heard himself wheezing today. He denies any chest pain. Gets winded easily. This has worsened. H/O CHF with implanted defibrillator. No palpitations. No fevers. No productive cough. No NVD. No dysuria. He was admitted last month and atrial flutter. At that time a CT angiogram was done. There is no evidence of foreign embolus however the electrocardiogram the ventricular thrombus was encountered. The continuity tester recommended that he be started on heparin and Coumadin and the patient signed out AGAINST MEDICAL ADVICE. 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 He was previously on plavix, but no longer. 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 Reviewed Nursing Documentation: PMH: Agreed, PSxH: Agreed Nursing Documentation-PM Hx Cardiac Problems: Yes - chf, pacemaker, stent Hx Hypertension: Yes Hx Pacemaker: Yes - 2008 Hx Asthma: Yes Hx COPD: Yes Hx Diabetes: Yes Hx Gastrointestinal Problems: No Hx Dialysis: No Hx Neurological Problems: Yes Hx Cerebrovascular Accident: Yes Hx Transient Ischemic Attacks: No Hx Dementia: No Hx Alzheimer's Disease: No Hx Parkinson's Disease: No Hx Meningitis: No Hx Encephalitis: No Hx Epilepsy: No Hx Multiple Sclerosis: No Hx Cerebral Palsy: No Hx Amyotrophic Lat Sclerosis: No Hx Guillian-[place] Syndrome: No Hx Paralysis: No Hx Peripheral Neuropathy: No Hx Spinal Cord Injury: No Hx Head Trauma: No Hx Traumatic Brain Injury: No Hx Memory Loss: No Hx Concentration Difficulty: No Hx Speech Problem: No Hx Tremors: No Hx Vertigo: No Hx Dizziness: No Hx Syncope: No Hx Headaches: No Hx Aphasia: No Hx Dysphasia: No Hx Numbness: No Hx Weakness: No Hx Fatigue: No Hx Neurologic Surgery: No Hx Brain Shunt: No Review of Systems All Other Systems: negative except mentioned in HPI Physical Exam Vital Signs Date Time Temp Pulse Resp B/P Pulse Ox O2 Delivery O2 Flow Rate FiO2 08/10/16 03:55 97.2 118 24 109/72 99 Room Air Sp02 EP Interpretation: reviewed, normal General Appearance: no apparent distress, GCS 15 Head: normocephalic, atraumatic Eyes: bilateral eye PERRL, bilateral eye normal inspection ENT: moist mucus membranes Neck: supple Respiratory: wheezing, expiration, inspiration Cardiovascular #1: JVD, irregularly irregular Cardiovascular #2: 2+ radial (R) Gastrointestinal: normal inspection, normal bowel sounds, non tender, no mass, non-distended Musculoskeletal: back normal, gait/station normal, normal range of motion Neurologic: alert, oriented x3, grossly normal Psychiatric: mood/affect normal Skin: normal inspection, warm/dry Medical Decision Making Diagnostic Impression: Primary Impression: Atrial fibrillation Qualified Codes: I48.2 - Chronic atrial fibrillation Additional Impressions: CHF (congestive heart failure) Qualified Codes: I50.41 - Acute combined systolic (congestive) and diastolic ( congestive) heart failure Pulmonary edema Qualified Codes: J81.0 - Acute pulmonary edema ER Course Patient presents with dyspnea and rapid heart rate with atrial fibrillation. Differential acute includes acute myocardial infarction, electrolyte abnormality , medication noncompliance, drug use, chf, infection amongst others. Emergent evaluation to exclude acute microinfarction is undertaken. Labs chest x-ray will also be taken. The patient will be treated with diltiazem IV to slow the rate down. Recent CTA and echo - mural thrombus. Doubt PE. Consider anticoagulation. Aspirin will be given. 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 No urine output after initial lasix dose. Repeat with 40 mg this time. Improved HR after diltiazem. Labs significant for normal troponin, creat 1.2, elevated BNP, sl high lactate (resolved). CXR markedly worsened. Patient admitted to telemetry Dr. George. Laboratory Tests Test 08/10/16 04:00 08/10/16 04:55 08/10/16 06:20 08/10/16 09:50 White Blood Count 9.5 K/UL (4.8-10.8) Red Blood Count 4.65 M/UL (4.70-6.10) L Hemoglobin 13.0 G/DL (14.2-18.0) L Hematocrit 40.7 % (42.0-52.0) L Mean Corpuscular Volume 88 FL (80-99) Mean Corpuscular Hemoglobin 27.9 PG (27.0-31.0) Mean Corpuscular Hemoglobin Concent 31.8 G/DL (32.0-36.0) L Red Cell Distribution Width 17.7 % (11.6-14.8) H Platelet Count 226 K/UL (150-450) Mean Platelet Volume 7.1 FL (6.5-10.1) Neutrophils (%) (Auto) 65.0 % (45.0-75.0) Lymphocytes (%) (Auto) 23.3 % (20.0-45.0) Monocytes (%) (Auto) 10.4 % (1.0-10.0) H Eosinophils (%) (Auto) 0.5 % (0.0-3.0) Basophils (%) (Auto) 0.9 % (0.0-2.0) Prothrombin Time 13.8 SEC (9.30-11.50) H Prothrombin Time INR 1.3 (0.9-1.1) H PTT 23 SEC (23-33) Sodium Level 142 mEQ/L (135-145) Potassium Level 4.1 mEQ/L (3.4-4.9) Chloride Level 104 mEQ/L (98-107) Carbon Dioxide Level 23 mEQ/L (20-30) Anion Gap 15 (5-15) Blood Urea Nitrogen 16 mg/dL (7-23) Creatinine 1.2 mg/dL (0.7-1.2) Estimate Glomerular Filtration Rate > 60 mL/min (>60) Glucose Level 170 mg/dL (74-106) H Lactic Acid Level 2.30 mmol/L (0.66-2.22) H 2.00 mmol/L (0.66-2.22) Calcium Level 8.9 mg/dL (8.6-10.2) Total Bilirubin 1.8 mg/dL (0.0-1.2) H Direct Bilirubin 0.8 mg/dL (0.1-0.3) H Aspartate Amino Transferase (AST) 48 U/L (5-40) H Alanine Aminotransferase (ALT) 44 U/L (3-41) H Alkaline Phosphatase 38 U/L (40-129) L Total Creatine Kinase 84 U/L (38-174) Troponin I < 0.30 ng/mL (<=0.30) < 0.30 ng/mL (<=0.30) Pro-B-Type Natriuretic Peptide 5720 pg/mL (0-125) H Total Protein 6.0 g/dL (6.6-8.7) L Albumin 3.9 g/dL (3.5-5.2) Globulin 2.1 g/dL Albumin/Globulin Ratio 1.8 (1.0-2.7) Urine Color Yellow Urine Appearance Clear Urine pH 5 (4.5-8.0) Urine Specific [place] 1.020 (1.005-1.035) Urine Protein 2+ (NEGATIVE) H Urine Glucose (UA) Negative (NEGATIVE) Urine Ketones Negative (NEGATIVE) Urine Occult Blood Negative (NEGATIVE) Urine Nitrite Negative (NEGATIVE) Urine Bilirubin Negative (NEGATIVE) Urine Urobilinogen 4 MG/DL (0.0-1.0) H Urine Leukocyte Esterase Negative (NEGATIVE) Urine RBC 0-2 /HPF (0 - 0) H Urine WBC 0-2 /HPF (0 - 0) Urine Squamous Epithelial Cells Occasional /LPF Urine Bacteria Occasional /HPF (NONE) Urine Hyaline Casts 2-4 /LPF (NONE) H Urine Fine Granular Casts 2-4 /LPF (NONE) H Urine Opiates Screen Negative (NEGATIVE) Urine Barbiturates Screen Negative (NEGATIVE) Phencyclidine (PCP) Screen Negative (NEGATIVE) Urine Amphetamines Screen Negative (NEGATIVE) Urine Benzodiazepines Screen Negative (NEGATIVE) Urine Cocaine Screen Negative (NEGATIVE) Urine Marijuana (THC) Screen Negative (NEGATIVE) EKG Diagnostic Results Rate: tachycardiac Rhythm: other - a fib ST Segments: no acute changes Rhythm Strip Diag. Results EP Interpretation: yes Rhythm: no PVC's, no ectopy, other - a fib Chest X-Ray Diagnostic Results EP Interpretation: Yes Findings: no effusion, no pneumothorax, other - inc cor, pacer, CHF Number of Views: 1 Last Vital Signs Date Time Temp Pulse Resp B/P Pulse Ox O2 Delivery O2 Flow Rate FiO2 08/11/16 00:01 98.0 96 18 109/76 98 Nasal Cannula 2.0 08/10/16 19:00 28 Status: improved Disposition: ADMITTED INPATIENT Condition: Serious Michael Bellamy M.D. 9, 2017 04:07
[2016-08-10 04:17] LABS: BASOPHILS % (AUTO) 0.9 % (0.0-2.0); EOSINOPHILS % (AUTO) 0.5 % (0.0-3.0); LYMPHOCYTES % (AUTO) 23.3 % (20.0-45.0); MEAN CORPUSCULAR HEMOGLOBIN 27.9 PG (27.0-31.0); MEAN CORPUSCULAR HGB CONC 31.8 G/DL (32.0-36.0); MEAN CORPUSCULAR VOLUME 88 FL (80-99); MEAN PLATELET VOLUME 7.1 FL (6.5-10.1); MONOCYTES % (AUTO) 10.4 % (1.0-10.0); PLATELET COUNT 226 K/UL (150-450); RED BLOOD COUNT 4.65 M/UL (4.70-6.10); RED CELL DISTRIBUTION WIDTH 17.7 % (11.6-14.8); WHITE BLOOD COUNT 9.5 K/UL (4.8-10.8)
[2016-08-10 04:22] VITALS: BP 119/87
[2016-08-10 04:33] LABS: INR 1.3 (0.9-1.1); PROTHROMBIN TIME 13.8 SEC (9.30-11.50)
[2016-08-10 04:38] LABS: ALANINE AMINOTRANSFERASE 44 U/L (3-41); ALBUMIN/GLOBULIN RATIO 1.8 (1.0-2.7); ANION GAP 15 (5-15); ASPARTATE AMINO TRANSFERASE 48 U/L (5-40); CALCIUM 8.9 mg/dL (8.6-10.2); CARBON DIOXIDE 23 mEQ/L (20-30); CHLORIDE 104 mEQ/L (98-107); CREATININE 1.2 mg/dL (0.7-1.2); GLOMERULAR FILTRATION RATE > 60 mL/min (>60); HEMOLYSIS 4; POTASSIUM 4.1 mEQ/L (3.4-4.9); REFLEX LACTIC ACID YES OR NO YES; SODIUM 142 mEQ/L (135-145)
[2016-08-10 05:00] LABS: TROPONIN I < 0.30 ng/mL (<=0.30)
[2016-08-10 05:01] LABS: BILIRUBIN,DIRECT 0.8 mg/dL (0.1-0.3)
[2016-08-10 06:27] VITALS: BP 91/76
[2016-08-10 06:49] LABS: KETONES,URINE NEGATIVE (NEGATIVE); LEUKOCYTE ESTERASE ,URINE NEGATIVE (NEGATIVE); NITRITE,URINE NEGATIVE (NEGATIVE); PH,URINE 5 (4.5-8.0); PROTEIN,URINE 2+ (NEGATIVE); UROBILINOGEN,URINE 4 MG/DL (0.0-1.0)
[2016-08-10 06:53] LABS: APPEARANCE,URINE CLEAR
[2016-08-10 07:23] LABS: BACTERIA,URINE OCCASIONAL /HPF; RBC,URINE 0-2 /HPF (0 - 0); SQUAMOUS EPITHELIAL CELL,UR OCCASIONAL /LPF (NONE/OCC); WBC,URINE 0-2 /HPF (0 - 0)
[2016-08-10] MEDS ORDERED: Miralax 17gm pkt ORAL PRN (07:45)
[2016-08-10 08:00] VITALS: BP 109/77
[2016-08-10] MEDS: Carvedilol 25mg Tab ORAL SCH ×2 (09:24→21:57)
[2016-08-10] MEDS: Heparin 5000 units/ml inj SUBQ SCH ×2 (09:26→22:00)
--- NOTE | 2016-08-10 09:45 | Diagnostic Imaging Report ---
Indication: Dyspnea Comparison: 06/09/16 A single view chest radiograph was obtained. Findings: There is enlargement of the cardiac silhouette with pulmonary vascular redistribution and prominence, hazy vessel margins and the suggestion of interstitial edema consistent with pulmonary edema. Pacemakers noted. Impression: Interstitial edema
[2016-08-10 10:45] LABS: TROPONIN I < 0.30 ng/mL (<=0.30)
--- NOTE | 2016-08-10 11:17 | Cardiology Progress Note ---
Subjective Subjective perm afib acute on chronic sytolic heart failure cm cad remote icd implantion pulm htn mr tr ? LV thrombus previouosly imporved already nto clear to me why he was take off anticoagu not had any fall no bleeding keep on jose roberto is not on diuretic at home to start coreg was nto effective lat tiem here but he is takign at home echo ordreed should be started on anticoaugation with fu with [facility] cardiolog[facility] [id number] Objective Last 24 Hour Vital Signs Date Time Temp Pulse Resp B/P Pulse Ox O2 Delivery O2 Flow Rate FiO2 08/10/16 09:24 84 130/80 08/10/16 08:51 97 08/10/16 08:23 84 16 130/80 93 Nasal Cannula 2.0 08/10/16 08:22 97.2 89 20 99/76 99 Nasal Cannula 2.0 08/10/16 08:00 97.7 98 20 109/77 100 Room Air 08/10/16 06:27 97.2 89 20 91/76 99 Nasal Cannula 2.0 08/10/16 04:55 90 18 99 Nasal Cannula 2.0 08/10/16 04:26 91 18 Room Air 08/10/16 04:26 90 18 96 Room Air 08/10/16 04:22 97.2 115 32 119/87 95 Room Air 08/10/16 04:22 115 32 Nasal Cannula 2.0 08/10/16 04:14 111 119/87 08/10/16 03:55 97.2 118 24 109/72 99 Room Air Intake and Output 08/09/16 08/10/16 19:00 07:00 Intake Total 0 ml Output Total 300 ml Balance -300 ml Intake Oral 0 ml Output Urine Total 300 ml Laboratory Tests Test 08/10/16 04:00 08/10/16 04:55 08/10/16 06:20 08/10/16 09:50 White Blood Count 9.5 K/UL (4.8-10.8) Red Blood Count 4.65 M/UL (4.70-6.10) L Hemoglobin 13.0 G/DL (14.2-18.0) L Hematocrit 40.7 % (42.0-52.0) L Mean Corpuscular Volume 88 FL (80-99) Mean Corpuscular Hemoglobin 27.9 PG (27.0-31.0) Mean Corpuscular Hemoglobin Concent 31.8 G/DL (32.0-36.0) L Red Cell Distribution Width 17.7 % (11.6-14.8) H Platelet Count 226 K/UL (150-450) Mean Platelet Volume 7.1 FL (6.5-10.1) Neutrophils (%) (Auto) 65.0 % (45.0-75.0) Lymphocytes (%) (Auto) 23.3 % (20.0-45.0) Monocytes (%) (Auto) 10.4 % (1.0-10.0) H Eosinophils (%) (Auto) 0.5 % (0.0-3.0) Basophils (%) (Auto) 0.9 % (0.0-2.0) Prothrombin Time 13.8 SEC (9.30-11.50) H Prothromb Time International Ratio 1.3 (0.9-1.1) H Activated Partial Thromboplast Time 23 SEC (23-33) Sodium Level 142 mEQ/L (135-145) Potassium Level 4.1 mEQ/L (3.4-4.9) Chloride Level 104 mEQ/L (98-107) Carbon Dioxide Level 23 mEQ/L (20-30) Anion Gap 15 (5-15) Blood Urea Nitrogen 16 mg/dL (7-23) Creatinine 1.2 mg/dL (0.7-1.2) Estimat Glomerular Filtration Rate > 60 mL/min (>60) Glucose Level 170 mg/dL (74-106) H Lactic Acid Level 2.30 mmol/L (0.66-2.22) H 2.00 mmol/L (0.66-2.22) Calcium Level 8.9 mg/dL (8.6-10.2) Total Bilirubin 1.8 mg/dL (0.0-1.2) H Direct Bilirubin 0.8 mg/dL (0.1-0.3) H Aspartate Amino Transf (AST/SGOT) 48 U/L (5-40) H Alanine Aminotransferase (ALT/SGPT) 44 U/L (3-41) H Alkaline Phosphatase 38 U/L (40-129) L Total Creatine Kinase 84 U/L (38-174) Troponin I < 0.30 ng/mL (<=0.30) < 0.30 ng/mL (<=0.30) Pro-B-Type Natriuretic Peptide 5720 pg/mL (0-125) H Total Protein 6.0 g/dL (6.6-8.7) L Albumin 3.9 g/dL (3.5-5.2) Globulin 2.1 g/dL Albumin/Globulin Ratio 1.8 (1.0-2.7) Urine Color Yellow Urine Appearance Clear Urine pH 5 (4.5-8.0) Urine Specific [place] 1.020 (1.005-1.035) Urine Protein 2+ (NEGATIVE) H Urine Glucose (UA) Negative (NEGATIVE) Urine Ketones Negative (NEGATIVE) Urine Occult Blood Negative (NEGATIVE) Urine Nitrite Negative (NEGATIVE) Urine Bilirubin Negative (NEGATIVE) Urine Urobilinogen 4 MG/DL (0.0-1.0) H Urine Leukocyte Esterase Negative (NEGATIVE) Urine RBC 0-2 /HPF (0 - 0) H Urine WBC 0-2 /HPF (0 - 0) Urine Squamous Epithelial Cells Occasional /LPF Urine Bacteria Occasional /HPF (NONE) Urine Hyaline Casts 2-4 /LPF (NONE) H Urine Fine Granular Casts 2-4 /LPF (NONE) H Urine Opiates Screen Negative (NEGATIVE) Urine Barbiturates Screen Negative (NEGATIVE) Phencyclidine (PCP) Screen Negative (NEGATIVE) Urine Amphetamines Screen Negative (NEGATIVE) Urine Benzodiazepines Screen Negative (NEGATIVE) Urine Cocaine Screen Negative (NEGATIVE) Urine Marijuana (THC) Screen Negative (NEGATIVE) AUBRIE TRIVEDI August 10, 2016 11:17
[2016-08-10] MEDS: NovoLOG Insulin Flexpen SUBQ SCH ×3 (11:30→21:00)
[2016-08-10] MEDS: Benazepril 10mg tab ORAL SCH (11:45)
[2016-08-10 12:52] VITALS: BP 90/63
--- NOTE | 2016-08-10 14:18 | History and Physical ---
History of Present Illness General Date patient seen: August 10, 2016 Reason for Hospitalization: Dyspnea/Respdistress Present Illness HPI 56 year old male with hx of ICD, cardiomyopathy, non compliance, afib presented with shortness of breath. He states is not taking any heart medicines per se. He also hears herself wheezing today. He denies any chest pain. He was diagnosed to have pulmonary edema and admitted for further evaluation. Allergies: Coded Allergies: No Known Allergies (Unverified , 08/10/16) Medication History Scheduled Aspirin* (Aspir 81*), 81 MG ORAL DAILY, (Reported) Atorvastatin Calcium* (Atorvastatin Calcium*), 80 MG ORAL BEDTIME, (Reported) Benazepril Hcl* (Benazepril Hcl*), 20 MG ORAL EVERY 12 HOURS, (Reported) Carvedilol* (Carvedilol*), 25 MG ORAL EVERY 12 HOURS, (Reported) Metformin Hcl* (Metformin Hcl*), Unknown Dose ORAL TWICE A DAY, (Reported) Patient History Healthcare decision maker Resuscitation status Full Code Advanced Directive on File No Review of Systems All Other Systems: negative except mentioned in HPI Physical Exam General Appearance: WD/WN Lines, tubes and drains: peripheral HEENT: normocephalic, atraumatic Neck: non-tender, normal alignment Respiratory/Chest: chest wall non-tender, lungs clear Cardiovascular/Chest: normal peripheral pulses, normal rate Abdomen: normal bowel sounds, non tender Genitourinary/Rectal: normal genital exam Extremities: normal range of motion Skin Exam: normal pigmentation Neurologic: coding advisor II-XII grossly normal Last 24 Hour Vital Signs Date Time Temp Pulse Resp B/P Pulse Ox O2 Delivery O2 Flow Rate FiO2 08/10/16 12:52 97.5 106 18 90/63 95 Room Air 08/10/16 12:36 95 Nasal Cannula 2.0 28 08/10/16 12:36 Nasal Cannula 2.0 28 08/10/16 12:34 87 18 Nasal Cannula 2.0 28 08/10/16 11:45 90/63 08/10/16 09:24 84 130/80 08/10/16 08:51 97 08/10/16 08:23 84 16 130/80 93 Nasal Cannula 2.0 08/10/16 08:22 97.2 89 20 99/76 99 Nasal Cannula 2.0 08/10/16 08:00 97.7 98 20 109/77 100 Room Air 08/10/16 06:27 97.2 89 20 91/76 99 Nasal Cannula 2.0 08/10/16 04:55 90 18 99 Nasal Cannula 2.0 08/10/16 04:26 91 18 Room Air 08/10/16 04:26 90 18 96 Room Air 08/10/16 04:22 97.2 115 32 119/87 95 Room Air 08/10/16 04:22 115 32 Nasal Cannula 2.0 08/10/16 04:14 111 119/87 08/10/16 03:55 97.2 118 24 109/72 99 Room Air Intake and Output 08/09/16 08/10/16 19:00 07:00 Intake Total 0 ml Output Total 300 ml Balance -300 ml Intake Oral 0 ml Output Urine Total 300 ml Laboratory Tests Test 08/10/16 04:00 08/10/16 04:55 08/10/16 06:20 08/10/16 09:50 White Blood Count 9.5 K/UL (4.8-10.8) Red Blood Count 4.65 M/UL (4.70-6.10) L Hemoglobin 13.0 G/DL (14.2-18.0) L Hematocrit 40.7 % (42.0-52.0) L Mean Corpuscular Volume 88 FL (80-99) Mean Corpuscular Hemoglobin 27.9 PG (27.0-31.0) Mean Corpuscular Hemoglobin Concent 31.8 G/DL (32.0-36.0) L Red Cell Distribution Width 17.7 % (11.6-14.8) H Platelet Count 226 K/UL (150-450) Mean Platelet Volume 7.1 FL (6.5-10.1) Neutrophils (%) (Auto) 65.0 % (45.0-75.0) Lymphocytes (%) (Auto) 23.3 % (20.0-45.0) Monocytes (%) (Auto) 10.4 % (1.0-10.0) H Eosinophils (%) (Auto) 0.5 % (0.0-3.0) Basophils (%) (Auto) 0.9 % (0.0-2.0) Prothrombin Time 13.8 SEC (9.30-11.50) H Prothromb Time International Ratio 1.3 (0.9-1.1) H Activated Partial Thromboplast Time 23 SEC (23-33) Sodium Level 142 mEQ/L (135-145) Potassium Level 4.1 mEQ/L (3.4-4.9) Chloride Level 104 mEQ/L (98-107) Carbon Dioxide Level 23 mEQ/L (20-30) Anion Gap 15 (5-15) Blood Urea Nitrogen 16 mg/dL (7-23) Creatinine 1.2 mg/dL (0.7-1.2) Estimat Glomerular Filtration Rate > 60 mL/min (>60) Glucose Level 170 mg/dL (74-106) H Lactic Acid Level 2.30 mmol/L (0.66-2.22) H 2.00 mmol/L (0.66-2.22) Calcium Level 8.9 mg/dL (8.6-10.2) Total Bilirubin 1.8 mg/dL (0.0-1.2) H Direct Bilirubin 0.8 mg/dL (0.1-0.3) H Aspartate Amino Transf (AST/SGOT) 48 U/L (5-40) H Alanine Aminotransferase (ALT/SGPT) 44 U/L (3-41) H Alkaline Phosphatase 38 U/L (40-129) L Total Creatine Kinase 84 U/L (38-174) Troponin I < 0.30 ng/mL (<=0.30) < 0.30 ng/mL (<=0.30) Pro-B-Type Natriuretic Peptide 5720 pg/mL (0-125) H Total Protein 6.0 g/dL (6.6-8.7) L Albumin 3.9 g/dL (3.5-5.2) Globulin 2.1 g/dL Albumin/Globulin Ratio 1.8 (1.0-2.7) Urine Color Yellow Urine Appearance Clear Urine pH 5 (4.5-8.0) Urine Specific [place] 1.020 (1.005-1.035) Urine Protein 2+ (NEGATIVE) H Urine Glucose (UA) Negative (NEGATIVE) Urine Ketones Negative (NEGATIVE) Urine Occult Blood Negative (NEGATIVE) Urine Nitrite Negative (NEGATIVE) Urine Bilirubin Negative (NEGATIVE) Urine Urobilinogen 4 MG/DL (0.0-1.0) H Urine Leukocyte Esterase Negative (NEGATIVE) Urine RBC 0-2 /HPF (0 - 0) H Urine WBC 0-2 /HPF (0 - 0) Urine Squamous Epithelial Cells Occasional /LPF Urine Bacteria Occasional /HPF (NONE) Urine Hyaline Casts 2-4 /LPF (NONE) H Urine Fine Granular Casts 2-4 /LPF (NONE) H Urine Opiates Screen Negative (NEGATIVE) Urine Barbiturates Screen Negative (NEGATIVE) Phencyclidine (PCP) Screen Negative (NEGATIVE) Urine Amphetamines Screen Negative (NEGATIVE) Urine Benzodiazepines Screen Negative (NEGATIVE) Urine Cocaine Screen Negative (NEGATIVE) Urine Marijuana (THC) Screen Negative (NEGATIVE) Height (Feet): 5 Height (Inches): 9.00 Weight (Pounds): 180 Medications Current Medications Medications (Trade) Dose Ordered Sig/Ana Route PRN Reason Start Time Stop Time Status Last Admin Dose Admin Acetaminophen (Tylenol) 650 mg Q4H PRN ORAL Fever 08/10/16 07:45 09/09/16 07:44 Albuterol/ Ipratropium (DuoNeb 0.5-3(2.5)mg/3ml) 3 ml Q4H PRN HHN Shortness of Breath 08/10/16 07:45 08/15/16 07:44 Atorvastatin Calcium (Lipitor) 40 mg BEDTIME ORAL 08/10/16 21:00 09/09/16 20:59 Benazepril HCl (Lotensin) 10 mg DAILY ORAL 08/10/16 12:00 09/09/16 11:59 Carvedilol (Coreg) 25 mg EVERY 12 HOURS ORAL 08/10/16 09:00 09/09/16 08:59 08/10/16 09:24 Dextrose (Dextrose 50%) STAT PRN IV Hypoglycemia 08/10/16 07:45 09/09/16 07:44 Furosemide (Lasix) 40 mg BID IV 08/10/16 18:00 09/09/16 17:59 Heparin Sodium (Porcine) (Heparin 5000 units/ml) 5,000 units EVERY 12 HOURS SUBQ 08/10/16 09:00 09/09/16 08:59 08/10/16 09:26 Insulin Aspart (NovoLOG) BEFORE MEALS AND HS SUBQ 08/10/16 11:30 09/09/16 11:29 Ondansetron HCl (Zofran) 4 mg Q6H PRN IVP Nausea & Vomiting 08/10/16 07:45 09/09/16 07:44 Polyethylene Glycol (Miralax) 17 gm DAILYPRN PRN ORAL Constipation 08/10/16 07:45 09/09/16 07:44 Temazepam (Restoril) 15 mg HSPRN PRN ORAL Insomnia 08/10/16 07:45 08/17/16 07:44 Warfarin Sodium (Coumadin per pharmacy) 1 ea DAILY PRN MISC Per rx protocol 08/10/16 11:30 09/09/16 11:29 Warfarin Sodium (Coumadin) 7.5 mg COUMADIN ONCE ORAL 08/10/16 17:00 08/10/16 17:01 Assessment/Plan Problem List: (1) Acute respiratory failure ICD Codes: J96.00 - Acute respiratory failure, unspecified whether with hypoxia or hypercapnia SNOMED: 75603936 Qualifiers: Qualified Codes: J96.01 - Acute respiratory failure with hypoxia (2) ICD (implantable cardioverter-defibrillator) in place ICD Codes: Z95.810 - Presence of automatic (implantable) cardiac defibrillator SNOMED: 256468777, 752969852 (3) Ventricular mural thrombus SNOMED: 03311918 (4) Atrial flutter ICD Codes: I48.92 - Unspecified atrial flutter SNOMED: 9490416 (5) Pulmonary edema ICD Codes: J81.1 - Chronic pulmonary edema SNOMED: 41209262 Assessment/Plan diuretics repiratory treatment Echo cardiac evaluation SHIMON WILLAMS August 10, 2016 14:18
--- NOTE | 2016-08-10 15:38 | Cardiology Report ---
APPROVED REPORT EXAM: Two-dimensional and M-mode echocardiogram with Doppler and color Doppler. INDICATION LV function M-Mode DIMENSIONS IVSd0.8 (0.7-1.1cm)Left Atrium (MM)6.0 (1.6-4.0cm) LVDd7.5 (3.5-5.6cm)Aortic Root3.5 (2.0-3.7cm) PWd1.1 (0.7-1.1cm)Aortic Cusp Exc.2.0 (1.5-2.0cm) LVDs7.1 (2.5-4.0cm) PWs0.9 cm Severe left ventricular enlargement. Global left ventricular very severe hypokinesis with basal posterior wall working best. Anteroseptal, mid to distal segments akinetic , apical segment dykinesis with thinning of the septum. Left ventricular ejection fraction estimated to be less than 25-30%. Increased E point-interventricular septal separation c/w left ventricular dysfunction. No evidence of left ventricular hypertrophy. No evidence of pericardial fat or effusion. Severe left atrial enlargement by 2D. Mild right atrial and right ventricular enlargement by 2D. Focal aortic valve sclerosis with adequate cusp excursion Thickened mitral valve leaflets with normal excursion. Mild mitral annulus and aortic root calcification. Pulmonic valve is well visualized. Normal tricuspid valve structure. IVC dilated at 3.6 cm with no physiologic collapse. RA pressure at least 20mmHg. Pacemaker wire present in the right side chambers. Increased apical echoes may be reverberation artifact, a discrete thrombus is not seen but cannot be excluded A color flow and spectral Doppler study was performed and revealed: Trace aortic regurgitation. Moderate to Severe mitral regurgitation. Left ventricular diastolic dysfunction not obtainable due to A-FIB. Moderate tricuspid regurgitation. Tricuspid systolic velocities suggests peak right ventricular systolic pressure of 64 mmHg, consistent with severe pulmonary hypertension. Mild pulmonic regurgitation present. Critical criteria: Notified Dr. Plata by Gordy on 08/10/16 at 12pm.
[2016-08-10 16:12] VITALS: BP 96/73
[2016-08-10] MEDS ORDERED: Warfarin Sodium 7.5mg ORAL ONE (17:00)
[2016-08-10 19:58] VITALS: BP 107/66
[2016-08-10] MEDS: DuoNeb 0.5-3(2.5)mg/3ml neb HHN PRN (21:44)
--- NOTE | 2016-08-10 22:29 | Consultation ---
DATE OF CONSULTATION: 08/10/2016 CARDIOLOGY CONSULTATION CONSULTING PHYSICIAN: Maxime Plata M.D. REFERRING PHYSICIAN: Cate George M.D. REASON FOR REFERRAL: Congestive heart failure and atrial fibrillation. HISTORY OF PRESENT ILLNESS: This is a middle-aged gentleman who has a family history of congestive heart failure. He has been followed by [facility]. He tells me he has had a history of stent and defibrillator placed. The stent was put in back a number of years ago. His defibrillator was also placed a number of years ago. He has never underwent ICD discharge. He comes into the hospital because of shortness of breath with exertion and with rest, had to use 2 pillows and increasing amounts of shortness of breath. No pain, pressure, tightness, or heaviness in his chest. Occasional palpitations. No dizziness or lightheadedness. PAST MEDICAL HISTORY: Positive for history of atrial fibrillation and history of congestive heart failure and defibrillator was consistent with significant left ventricular hypertrophy and a possible left ventricular thrombus during last hospitalization here at [facility] back in June 2016. Unfortunately, the patient was to be started on anticoagulation against medical advice during that hospitalization. Also, history of diabetes and high blood pressure. There has been a history of heart attack and stent placed and a possible history of asthma, has a remote history of ulcers. He does have some renal insufficiency. ALLERGIES: He is not allergic to any medications. SOCIAL HISTORY: One pack per day previously, although he has cut down a little bit. He does not drink alcoholic beverages. Denies any drug use. 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 REVIEW OF SYSTEMS: Gastrointestinal: He has had some diarrhea recently, otherwise negative. Genitourinary: Negative. Pulmonary: Negative. Constitutional: Negative. PHYSICAL EXAMINATION: GENERAL: Shows to be a middle-aged male, in no apparent respiratory distress, lying down flat. At this time, he feels much better, he states. NECK: Supple. No jugular venous distention. LUNGS: Decreased breath sounds are noted bilaterally. No crackles. CARDIOVASCULAR: Irregularly irregular. No heaves, thrills, or gallops noted. ABDOMEN: Soft and nontender. Positive bowel sounds. EXTREMITIES: There is no clubbing, cyanosis nor is there any edema. NEUROLOGIC: He is awake, alert, responsive, and in no apparent respiratory distress. LABORATORY VALUES: White count 9.5, hemoglobin 13, and platelet count of 226,000. His sodium is 142, potassium 4.1, chloride 104, bicarbonate 23, BUN 16, creatinine 1.2, and a glucose of 170. Lactic acid of 2.3, subsequently 2. Bilirubin is 1.8. AST of 48, ALT of 48, and alkaline phosphatase of 38. Troponin first set is negative as less than 0.3, subsequently negative as 0.3. ProBNP is 5720. Albumin is 3.9. Coags, INR 1.3 and PTT of 23. His urinalysis is fairly unremarkable and the drug screen was negative. IMAGING STUDIES: Imaging performed yesterday, the chest x-ray shows interstitial edema. His echocardiogram that was performed on 06/18/2016 showed an ejection fraction of 20% with severe hypokinesis, severe left atrial enlargement, dilated IVC, echodensity in the left apex, possible thrombus, severe mitral regurgitation being noted, mild to moderate tricuspid regurgitation and pulmonary artery systolic pressure in the 70s at that time. EKG seems to show atrial fibrillation with ventricular response in the 115 as well. ASSESSMENT: 1. Atrial fibrillation. 2. Acute on chronic systolic heart failure with cardiomyopathy. 3. Coronary artery disease, remote. 4. Implantable cardioverter-defibrillator implantation. 5. Pulmonary hypertension. 6. Mitral regurgitation. 7. Tricuspid regurgitation. 8. Questionable history of left ventricular thrombus previously. PLAN: Dr. George, this patient was seen in cardiac consultation. He has already improved with the treatment he has been rendered here so far. I am not clear to me why he was taken off anticoagulation. On detailed question, there has been no reports of fall or bleeding or alcohol intake recently. He should be kept on SHABNAM inhibitors. He is not on diuretics at home. We will start him on a regular basis. Coreg was not effective the last time, but he is taking it at home. Echocardiogram will be ordered and he should be started on anticoagulation. We will follow up with his lead cargo mover at [facility]. Maxime Plata M.D. DR: DARLENE JOB#: [id number] CC:
[2016-08-11] VITALS (7 sets, daily range): BP systolic 88–113; BP diastolic 60–85
[2016-08-11] MEDS: NovoLOG Insulin Flexpen SUBQ SCH ×4 (06:30→21:00)
[2016-08-11 08:05] LABS: BASOPHILS % (AUTO) 0.6 % (0.0-2.0); EOSINOPHILS % (AUTO) 1.2 % (0.0-3.0); INR 1.3 (0.9-1.1); LYMPHOCYTES % (AUTO) 22.9 % (20.0-45.0); MEAN CORPUSCULAR HGB CONC 32.3 G/DL (32.0-36.0); MEAN CORPUSCULAR VOLUME 87 FL (80-99); MEAN PLATELET VOLUME 7.1 FL (6.5-10.1); MONOCYTES % (AUTO) 8.2 % (1.0-10.0); PLATELET COUNT 193 K/UL (150-450); PROTHROMBIN TIME 13.2 SEC (9.30-11.50); RED BLOOD COUNT 4.25 M/UL (4.70-6.10); RED CELL DISTRIBUTION WIDTH 17.9 % (11.6-14.8); WHITE BLOOD COUNT 7.2 K/UL (4.8-10.8)
[2016-08-11 08:06] LABS: TROPONIN I < 0.30 ng/mL (<=0.30)
[2016-08-11 08:10] LABS: ANION GAP 14 (5-15); CARBON DIOXIDE 27 mEQ/L (20-30); CHLORIDE 103 mEQ/L (98-107); CREATININE 1.1 mg/dL (0.7-1.2); GLOMERULAR FILTRATION RATE > 60 mL/min (>60); HEMOLYSIS 6; PHOSPHORUS 3.8 mg/dL (2.5-4.8); POTASSIUM 3.4 mEQ/L (3.4-4.9); SODIUM 144 mEQ/L (135-145)
[2016-08-11] MEDS: Benazepril 10mg tab ORAL SCH (08:29)
[2016-08-11] MEDS: Carvedilol 25mg Tab ORAL SCH (08:30)
[2016-08-11] MEDS: Heparin 5000 units/ml inj SUBQ SCH ×2 (08:31→21:20)
[2016-08-11 08:49] LABS: MAGNESIUM 1.8 MG/DL (1.5-2.4)
--- NOTE | 2016-08-11 11:54 | Diagnostic Imaging Report ---
Indication: Dyspnea Comparison: 08/10/2016 A single view chest radiograph was obtained. Findings: Edema appears improved within the lungs though there is still some groundglass opacification bilaterally and cardiomegaly is still present. The bones are unremarkable. Pacemaker again noted. Impression: Interstitial edema improved from the prior day
[2016-08-11] MEDS ORDERED: NS IV SCH (14:15)
[2016-08-11] MEDS ORDERED: Metoprolol Tartrate 12.5mg TAB ORAL ONE (14:30)
[2016-08-11] MEDS ORDERED: NS 200 ML SCH (14:30)
[2016-08-11] MEDS ORDERED: NS 200 ML ONE (14:30)
[2016-08-11] MEDS ORDERED: COUMADIN7.5 MG ORAL (14:39)
[2016-08-11] MEDS ORDERED: FUROSEMIDE40 MG ORAL (14:39)
--- NOTE | 2016-08-11 14:43 | Pulmonology Progress Note ---
Assessment/Plan Problems: (1) Acute respiratory failure (2) ICD (implantable cardioverter-defibrillator) in place (3) Ventricular mural thrombus (4) Atrial flutter (5) Pulmonary edema Assessment/Plan titrate fio2 to sat of 92 diuresing well dc home in am with diuretics needs close f/u with outpatient cardiolgoy Subjective ROS Limited/Unobtainable: No Constitutional: Reports: no symptoms HEENT: Repors: no symptoms Cardiovascular: Reports: no symptoms Gastrointestinal/Abdominal: Reports: no symptoms Genitourinary: Reports: no symptoms Allergies: Coded Allergies: No Known Allergies (Unverified , 08/10/16) Objective Last 24 Hour Vital Signs Date Time Temp Pulse Resp B/P Pulse Ox O2 Delivery O2 Flow Rate FiO2 08/11/16 12:00 99 08/11/16 12:00 96.6 113 22 109/69 95 Room Air 08/11/16 11:36 Room Air 21 08/11/16 11:36 101 18 Room Air 21 08/11/16 11:36 95 Room Air 21 08/11/16 08:30 123 113/85 08/11/16 08:29 113/85 08/11/16 08:00 97.7 123 23 113/85 98 Room Air 08/11/16 08:00 115 08/11/16 04:00 97.8 102 18 106/71 97 Nasal Cannula 2.0 08/11/16 04:00 102 08/11/16 00:01 98.0 96 18 109/76 98 Nasal Cannula 2.0 08/11/16 00:00 104 08/10/16 21:57 104 115/78 08/10/16 21:48 85 18 100 Nasal Cannula 2.0 08/10/16 21:42 103 18 97 Nasal Cannula 2.0 08/10/16 20:00 98 08/10/16 19:58 98.2 104 18 107/66 98 Nasal Cannula 2.0 08/10/16 19:00 96 Nasal Cannula 2.0 28 08/10/16 19:00 103 18 Nasal Cannula 2.0 28 08/10/16 19:00 Nasal Cannula 2.0 28 08/10/16 16:12 97.0 103 18 96/73 96 Room Air 08/10/16 16:09 105 Intake and Output 08/10/16 08/11/16 19:00 07:00 Intake Total 1420 ml Balance 1420 ml Intake Oral 1420 ml # Voids 3 2 # Bowel Movements 1 General Appearance: WD/WN HEENT: normocephalic, anicteric Respiratory/Chest: chest wall non-tender, lungs clear Cardiovascular: normal peripheral pulses, normal rate Abdomen: normal bowel sounds, soft, non tender Genitourinary: normal external genitalia Neurologic/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: 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 it II-XII grossly normal, normal mood/affect Laboratory Tests 08/11/16 06:50: White Blood Count 7.2, Red Blood Count 4.25L, Hemoglobin 11.9L, Hematocrit 36.9L , Mean Corpuscular Volume 87, Mean Corpuscular Hemoglobin 28.0, Mean Corpuscular Hemoglobin Concent 32.3, Red Cell Distribution Width 17.9H, Platelet Count 193, Mean Platelet Volume 7.1, Neutrophils (%) (Auto) 67.0, Lymphocytes (%) (Auto) 22.9, Monocytes (%) (Auto) 8.2, Eosinophils (%) (Auto) 1.2, Basophils (%) (Auto) 0.6, Prothrombin Time 13.2H, Prothromb Time International Ratio 1.3H, Sodium Level 144, Potassium Level 3.4, Chloride Level 103, Carbon Dioxide Level 27, Anion Gap 14, Blood Urea Nitrogen 21, Creatinine 1.1, Estimat Glomerular Filtration Rate > 60, Glucose Level 142H, Calcium Level 9.0, Phosphorus Level 3.8, Magnesium Level 1.8, Troponin I < 0.30, Pro-B-Type Natriuretic Peptide 3260H, Albumin 3.4L Current Medications Medications (Trade) Dose Ordered Sig/Ana Route PRN Reason Start Time Stop Time Status Last Admin Dose Admin Acetaminophen (Tylenol) 650 mg Q4H PRN ORAL Fever 08/10/16 07:45 09/09/16 07:44 Albuterol/ Ipratropium (DuoNeb 0.5-3(2.5)mg/3ml) 3 ml Q4H PRN HHN Shortness of Breath 08/10/16 07:45 08/15/16 07:44 08/10/16 21:44 Atorvastatin Calcium (Lipitor) 40 mg BEDTIME ORAL 08/10/16 21:00 09/09/16 20:59 08/10/16 21:56 Benazepril HCl (Lotensin) 10 mg DAILY ORAL 08/10/16 12:00 09/09/16 11:59 08/11/16 08:29 Dextrose (Dextrose 50%) STAT PRN IV Hypoglycemia 08/10/16 07:45 09/09/16 07:44 Heparin Sodium (Porcine) (Heparin 5000 units/ml) 5,000 units EVERY 12 HOURS SUBQ 08/10/16 09:00 09/09/16 08:59 08/11/16 08:31 Insulin Aspart (NovoLOG) BEFORE MEALS AND HS SUBQ 08/10/16 11:30 09/09/16 11:29 Metoprolol Tartrate 25 mg 25 mg Q12HR ORAL 08/11/16 21:00 09/10/16 20:59 Ondansetron HCl (Zofran) 4 mg Q6H PRN IVP Nausea & Vomiting 08/10/16 07:45 09/09/16 07:44 Polyethylene Glycol (Miralax) 17 gm DAILYPRN PRN ORAL Constipation 08/10/16 07:45 09/09/16 07:44 Sodium Chloride (Sodium Chloride) 200 ml @ 100 mls/hr Q2H ONCE IV 08/11/16 14:30 08/11/16 16:29 Temazepam (Restoril) 15 mg HSPRN PRN ORAL Insomnia 08/10/16 07:45 08/17/16 07:44 Warfarin Sodium (Coumadin per pharmacy) 1 ea DAILY PRN MISC Per rx protocol 08/10/16 11:30 09/09/16 11:29 Warfarin Sodium (Coumadin) 7.5 mg COUMADIN ONCE ORAL 08/11/16 17:00 08/11/16 17:01 SHIMON WILLAMS August 11, 2016 14:43
[2016-08-11] MEDS ORDERED: Warfarin Sodium 7.5mg ORAL ONE (17:00)
--- NOTE | 2016-08-11 17:06 | Cardiology Report ---
APPROVED REPORT EKG Measurement Heart [id number] Brayden Simpson Left anterior fascicular block Anterolateral infarct, age undetermined Abnormal ECG
[2016-08-11] MEDS: DuoNeb 0.5-3(2.5)mg/3ml neb HHN PRN (20:10)
--- NOTE | 2016-08-11 20:51 | Cardiology Progress Note ---
Assessment/Plan Assessment/Plan perm afib acute on chronic sytolic heart failure cm cad remote icd implantion pulm htn mr tr ? LV thrombus previously i was called regardign tachy orderd 1 dose of metropolol ahd cp tonite ekg was neg had sob improved with hhn bp low desptie small bolus of ns hr increased depsti coreg, trial of metoprolol but got sob which improved with hhn for now dc metoprolol ' resume coreg adn will start on dig Coumadin epr pharmacy dc iv lasix switch to po lasix once pt is imporved trop in am so far other neg but co cp tonite ekg reviewed this evening no st changed d/w rn Subjective Cardiovascular: Reports: chest pain Respiratory: Reports: shortness of breath Gastrointestinal/Abdominal: Denies: abdominal pain Genitourinary: Reports: burning Subjective Objective Last 24 Hour Vital Signs Date Time Temp Pulse Resp B/P Pulse Ox O2 Delivery O2 Flow Rate FiO2 08/11/16 20:30 97.0 94 20 92/71 100 Room Air 08/11/16 20:18 81 18 99 Nasal Cannula 2.0 28 08/11/16 20:10 79 18 99 Nasal Cannula 2.0 28 08/11/16 19:54 94 18 Room Air 08/11/16 19:54 96 Room Air 08/11/16 19:54 Room Air 08/11/16 16:57 102 109/70 08/11/16 16:00 97 08/11/16 16:00 97.7 102 24 98/60 98 Room Air 08/11/16 12:00 99 08/11/16 12:00 96.6 113 22 109/69 95 Room Air 08/11/16 11:36 Room Air 21 08/11/16 11:36 101 18 Room Air 21 08/11/16 11:36 95 Room Air 21 08/11/16 08:30 123 113/85 08/11/16 08:29 113/85 08/11/16 08:00 97.7 123 23 113/85 98 Room Air 08/11/16 08:00 115 08/11/16 04:00 97.8 102 18 106/71 97 Nasal Cannula 2.0 08/11/16 04:00 102 08/11/16 00:01 98.0 96 18 109/76 98 Nasal Cannula 2.0 08/11/16 00:00 104 08/10/16 21:57 104 115/78 08/10/16 21:48 85 18 100 Nasal Cannula 2.0 08/10/16 21:42 103 18 97 Nasal Cannula 2.0 Intake and Output 08/10/16 08/11/16 19:00 07:00 Intake Total 1420 ml Balance 1420 ml Intake Oral 1420 ml # Voids 3 2 # Bowel Movements 1 Laboratory Tests Test 08/11/16 06:50 White Blood Count 7.2 K/UL (4.8-10.8) Red Blood Count 4.25 M/UL (4.70-6.10) L Hemoglobin 11.9 G/DL (14.2-18.0) L Hematocrit 36.9 % (42.0-52.0) L Mean Corpuscular Volume 87 FL (80-99) Mean Corpuscular Hemoglobin 28.0 PG (27.0-31.0) Mean Corpuscular Hemoglobin Concent 32.3 G/DL (32.0-36.0) Red Cell Distribution Width 17.9 % (11.6-14.8) H Platelet Count 193 K/UL (150-450) Mean Platelet Volume 7.1 FL (6.5-10.1) Neutrophils (%) (Auto) 67.0 % (45.0-75.0) Lymphocytes (%) (Auto) 22.9 % (20.0-45.0) Monocytes (%) (Auto) 8.2 % (1.0-10.0) Eosinophils (%) (Auto) 1.2 % (0.0-3.0) Basophils (%) (Auto) 0.6 % (0.0-2.0) Prothrombin Time 13.2 SEC (9.30-11.50) H Prothromb Time International Ratio 1.3 (0.9-1.1) H Sodium Level 144 mEQ/L (135-145) Potassium Level 3.4 mEQ/L (3.4-4.9) Chloride Level 103 mEQ/L (98-107) Carbon Dioxide Level 27 mEQ/L (20-30) Anion Gap 14 (5-15) Blood Urea Nitrogen 21 mg/dL (7-23) Creatinine 1.1 mg/dL (0.7-1.2) Estimat Glomerular Filtration Rate > 60 mL/min (>60) Glucose Level 142 mg/dL (74-106) H Calcium Level 9.0 mg/dL (8.6-10.2) Phosphorus Level 3.8 mg/dL (2.5-4.8) Magnesium Level 1.8 MG/DL (1.5-2.4) Troponin I < 0.30 ng/mL (<=0.30) Pro-B-Type Natriuretic Peptide 3260 pg/mL (0-125) H Albumin 3.4 g/dL (3.5-5.2) AUBRIE EUBANKS August 11, 2016 20:51
[2016-08-11] MEDS ORDERED: Metoprolol 25mg tab ORAL SCH (21:00)
[2016-08-11] MEDS ORDERED: Carvedilol 25mg Tab ORAL SCH (21:00)
[2016-08-12 00:11] VITALS: BP 110/74
[2016-08-12] MEDS ORDERED: Digoxin 0.5mg/2ml Inj IVP ONE (00:15)
[2016-08-12] MEDS ORDERED: Carvedilol 12.5mg tab ORAL ONE (03:45)
[2016-08-12 04:16] VITALS: BP 114/83
[2016-08-12] MEDS ORDERED: Metoprolol 5mg/5ml Inj IVP ONE ×2 (05:30→09:30)
[2016-08-12] MEDS: NovoLOG Insulin Flexpen SUBQ SCH ×2 (06:30→11:30)
--- NOTE | 2016-08-12 07:13 | Cardiology Progress Note ---
Assessment/Plan Assessment/Plan perm afib tachy acute on chronic sytolic heart failure cm cad remote icd implantion pulm htn mr tr ? LV thrombus previously multipl phone call over nite bp improved and over all pt better but hr remian rapid 2 dose of dig wre given still eelvated so i resumed metoprolol is on couamdin per pharmacy protochol has some eviden o f chf keep on dig 0.125 mg dialy reeum diuretic nwo that bp is better he thinks he may have choked on food yest cuasing hs sx will replace back on metoprolol and dig for heart rate control Subjective Cardiovascular: Denies: chest pain, lightheadedness, palpitations Respiratory: Denies: shortness of breath Gastrointestinal/Abdominal: Denies: abdominal pain Genitourinary: Denies: burning Subjective Objective Last 24 Hour Vital Signs Date Time Temp Pulse Resp B/P Pulse Ox O2 Delivery O2 Flow Rate FiO2 08/12/16 06:03 138 105/73 08/12/16 04:20 143 114/83 08/12/16 04:16 96.8 140 24 114/83 98 Nasal Cannula 2.0 08/12/16 04:00 152 08/12/16 00:33 134 08/12/16 00:11 97.0 55 20 110/74 100 Nasal Cannula 2.0 08/12/16 00:00 123 08/11/16 21:19 113 08/11/16 21:00 113 84/56 08/11/16 20:30 97.0 94 20 92/71 100 Room Air 08/11/16 20:18 81 18 99 Nasal Cannula 2.0 28 08/11/16 20:10 79 18 99 Nasal Cannula 2.0 28 08/11/16 20:00 109 08/11/16 19:54 94 18 Room Air 08/11/16 19:54 96 Room Air 08/11/16 19:54 Room Air 08/11/16 16:57 102 109/70 08/11/16 16:00 97 08/11/16 16:00 97.7 102 24 98/60 98 Room Air 08/11/16 12:00 99 08/11/16 12:00 96.6 113 22 109/69 95 Room Air 08/11/16 11:36 Room Air 21 08/11/16 11:36 101 18 Room Air 21 08/11/16 11:36 95 Room Air 21 08/11/16 08:30 123 113/85 08/11/16 08:29 113/85 08/11/16 08:00 97.7 123 23 113/85 98 Room Air 08/11/16 08:00 115 General Appearance: alert Neck: supple Cardiovascular: tachycardia, irregularly irregular Respiratory/Chest: crackles/rales Abdomen: normal bowel sounds, non tender, soft Extremities: no swelling Intake and Output 08/11/16 08/12/16 19:00 07:00 Intake Total 800 ml Balance 800 ml Intake Oral 600 ml IV Total 200 ml # Voids 3 # Bowel Movements 1 AUBRIE TRIVEDI August 12, 2016 07:13
[2016-08-12] MEDS ORDERED: Metoprolol 25mg tab ORAL SCH (07:58)
[2016-08-12] MEDS ORDERED: Benazepril 10mg tab ORAL SCH (07:59)
[2016-08-12 08:00] VITALS: BP 116/78
[2016-08-12] MEDS ORDERED: Furosemide 40mg tab ORAL SCH (08:00)
[2016-08-12 08:05] LABS: INR 1.3 (0.9-1.1); PROTHROMBIN TIME 13.8 SEC (9.30-11.50)
[2016-08-12 08:20] LABS: ANION GAP 13 (5-15); CALCIUM 9.4 mg/dL (8.6-10.2); CARBON DIOXIDE 26 mEQ/L (20-30); CHLORIDE 102 mEQ/L (98-107); CREATININE 1.1 mg/dL (0.7-1.2); GLOMERULAR FILTRATION RATE > 60 mL/min (>60); HEMOLYSIS 3; MAGNESIUM 1.9 mg/dL (1.7-2.5); POTASSIUM 4.2 mEQ/L (3.4-4.9); SODIUM 141 mEQ/L (135-145)
[2016-08-12] MEDS: Heparin 5000 units/ml inj SUBQ SCH (08:42)
[2016-08-12 08:49] LABS: TROPONIN I 15.29 ng/mL (<=0.30)
[2016-08-12] MEDS ORDERED: Carvedilol 25mg Tab ORAL SCH (09:00)
[2016-08-12] MEDS ORDERED: NS 275ml ONE (09:23)
[2016-08-12] MEDS ORDERED: Heparin 25,000u/D5W 500ml 500 ML IV SCH (09:30)
[2016-08-12] MEDS ORDERED: Heparin 5000 units/ml inj IV ONE (09:30)
[2016-08-12] MEDS ORDERED: HEPARIN-D525000 UNI1 IV (11:13)
[2016-08-12] MEDS ORDERED: ASPIR 8181 MG ORAL (11:14)
[2016-08-12 12:00] VITALS: BP 119/78
--- NOTE | 2016-08-12 12:10 | Diagnostic Imaging Report ---
APPROVED REPORT CPT Code: 48715 Present Symptoms Lower Extremity Pain: Bilateral BILATERAL: Imaging reveals a patent deep venous system bilaterally. There is no evidence of thrombus within the femoral, popliteal or tibial segments. The greater saphenous veins are also within normal limits. Doppler indicates normal spontaneous flow within these segments.
[2016-08-13] MEDS ORDERED: Aspirin Baby 81mg ORAL SCH (09:00)
--- NOTE | 2016-08-14 11:09 | Discharge Summary ---
Discharge Summary Hospital Course Date of Admission August 10, 2016 at 04:34 Date of Discharge August 12, 2016 at 14:00 Admitting Diagnosis A FIB,RAPID VENTRICULAR RATE HPI Sai Yepez is a 55 year old male who was admitted on August 10, 2016 at 04:34 for Atrial Fibrilation,Rapid Ventricular Rate Hospital Course [id number] Discharge Discharge Disposition Patient was discharged to Acute Care Facility(02) Discharge Diagnoses: Siobhan Sifuentes NP August 14, 2016 11:09
--- NOTE | 2016-08-15 05:39 | Discharge Summary 2 SIG ---
DATE OF ADMISSION: 08/10/2016 DATE OF DISCHARGE: 08/12/2016 TELECOMMUNICATIONS ADMINISTRATOR: Maxime Plata M.D. BRIEF HOSPITAL COURSE: The patient is a 55-year-old male with a history of ICD, cardiomyopathy, noncompliance, and atrial fibrillation, presented to ED complaining of shortness of breath. He admitted to not taking his heart medications. On arrival to ED, the patient was with rapid heart rate in atrial fibrillation. Heart rate improved after diltiazem. Laboratories showed normal troponin with BNP elevated and chest x-ray showed interstitial edema. Venous duplex of lower extremities showed deep patent venous system bilaterally. Negative for DVT. He was seen by Dr. Plata. ProBNP was 5720. Drug screen was negative. An echocardiogram performed on 06/18/2016 showed ejection fraction of 20% with severe hypokinesis, severe left atrial enlargement, dilated IVC, echodensity on the left apex, and possible thrombus, severe mitral regurgitation, [id number] tricuspid regurgitation, and pulmonary artery systolic pressure in the 70s at that time. He had episodes of tachycardia and chest pain with shortness of breath. The patient was resumed on Coreg and digoxin and was started on anticoagulation with Coumadin. Troponin increased to 15 and the patient was eventually transferred to [facility] for an angiogram. FINAL DIAGNOSES: 1. Rdzmi-[id number] systolic heart failure. 2. Elevated troponin, possible acute myocardial infarction. 3. Ventricular mural thrombus. 4. Pulmonary edema. 5. Implantable cardioverter defibrillator in place. 6. Severe cardiomyopathy. 7. Coronary artery disease. 8. Pulmonary hypertension. 9. Mitral regurgitation. 10. Tricuspid regurgitation. Cate George M.D. I have been assigned to dictate discharge summary on this account and I was not involved in the patient's management. Siobhan Sifuentes N.P. DR: Demond JOB#: [id number] CC:
== END 2016-08-12 14:00 | disposition short-term general hospital (02) | DRG 190 ==
LOC: EMR 04:00 → EDBD 04:34 → 2E 04:34 → EDBEDREQ 06:06
DX: I21.3 ST elevation (STEMI) myocardial infarction of unspecified site (principal); J96.00 Acute respiratory failure, unspecified whether with hypoxia or hypercapnia; I50.23 Acute on chronic systolic (congestive) heart failure; Z95.810 Presence of automatic (implantable) cardiac defibrillator; I42.9 Cardiomyopathy, unspecified; I25.10 Atherosclerotic heart disease of native coronary artery without angina pectoris; I27.2 Other secondary pulmonary hypertension; I08.1 Rheumatic disorders of both mitral and tricuspid valves; Z95.5 Presence of coronary angioplasty implant and graft; I25.2 Old myocardial infarction; I48.2 Chronic atrial fibrillation; I48.92 Unspecified atrial flutter; Z91.14 Patient's other noncompliance with medication regimen
CPT/HCPCS: 36415; 71010; 80048; 80053; 80069; 80300; 81003; 82248; 82550; 82962; 83605; 83735; 83880; 84484; 85025; 85610; 85730; 93005; 93306; 93970; 94640; 94664; 94760; J1815

== ENCOUNTER 2016-09-05 01:19 | Inpatient (IN) | payer OTHER ==
[~2016-09-05] VITALS: Ht 175.3 cm; Wt 83.9 kg
[2016-09-05] VITALS (9 sets, daily range): BP systolic 87–116; BP diastolic 54–70
[~2016-09-05 01:19] MED LIST changes: +COUMADIN7.5 MG ORAL; +FUROSEMIDE40 MG ORAL; +HEPARIN-D525000 UNI1 IV
[2016-09-05] MEDS ORDERED: SPIRONOLACTONE1 EACH ORAL (02:09)
[2016-09-05] MEDS ORDERED: CLOPIDOGREL75 MG ORAL (02:09)
[2016-09-05] MEDS ORDERED: FENOFIBRATE67 MG ORAL (02:09)
[2016-09-05] MEDS ORDERED: METOPROLOL SUCC25 MG ORAL (02:09)
[2016-09-05] MEDS ORDERED: CARVEDILOL25 MG ORAL (02:09)
[2016-09-05 02:18] LABS: BASOPHILS % (AUTO) 0.9 % (0.0-2.0); EOSINOPHILS % (AUTO) 0.3 % (0.0-3.0); LYMPHOCYTES % (AUTO) 26.8 % (20.0-45.0); MEAN CORPUSCULAR HEMOGLOBIN 28.9 PG (27.0-31.0); MEAN CORPUSCULAR HGB CONC 33.5 G/DL (32.0-36.0); MEAN CORPUSCULAR VOLUME 86 FL (80-99); MEAN PLATELET VOLUME 6.8 FL (6.5-10.1); MONOCYTES % (AUTO) 10.1 % (1.0-10.0); NEUTROPHILS % (AUTO) 61.9 % (45.0-75.0); PLATELET COUNT 227 K/UL (150-450); RED BLOOD COUNT 4.68 M/UL (4.70-6.10); RED CELL DISTRIBUTION WIDTH 16.1 % (11.6-14.8); WHITE BLOOD COUNT 9.1 K/UL (4.8-10.8)
[2016-09-05 02:36] LABS: ALBUMIN/GLOBULIN RATIO 1.6 (1.0-2.7); CALCIUM 9.2 mg/dL (8.6-10.2); CREATININE 1.6 mg/dL (0.7-1.2); GLOMERULAR FILTRATION RATE 54.9 mL/min (>60); POTASSIUM 4.2 mEQ/L (3.4-4.9); TOTAL PROTEIN 6.2 g/dL (6.6-8.7)
[2016-09-05 02:40] LABS: TROPONIN I < 0.30 ng/mL (<=0.30)
[2016-09-05] MEDS ORDERED: Digoxin 0.5mg/2ml Inj IVP ONE (03:15)
[2016-09-05] MEDS ORDERED: DIGOXIN125 MCG ORAL (03:16)
[2016-09-05 04:05] LABS: BILIRUBIN,DIRECT 0.9 mg/dL (0.1-0.3)
[2016-09-05] MEDS ORDERED: Miralax 17gm pkt ORAL PRN (06:30)
[2016-09-05] MEDS ORDERED: DuoNeb 0.5-3(2.5)mg/3ml neb HHN PRN (06:30)
--- NOTE | 2016-09-05 07:37 | Emergency Room Report ---
History of Present Illness General Chief Complaint: Dyspnea/Respdistress Source: Patient Present Illness HPI Patient's 56-year-old male presented after increased difficulty breathing. The patient gradual onset of symptoms. Patient had prior history of congestive heart failure cardiomyopathy. He said he had been taking his medications as previously prescribed. Patient noticed increased leg swelling. Patient had recently been discharged from the hospital after similar episode. The patient denies any fever. Allergies: Coded Allergies: No Known Allergies (Unverified , 08/10/16) Patient History Past Medical History: see triage record, CHF Reviewed Nursing Documentation: PMH: Agreed, PSxH: Agreed Nursing Documentation-PMH Hx Cardiac Problems: Yes - HF, stent, pacemaker Hx Hypertension: Yes Hx Pacemaker: Yes - 2008 Hx Asthma: Yes Hx COPD: Yes Hx Diabetes: Yes Hx Cancer: No Hx Gastrointestinal Problems: No Hx Dialysis: No Hx Neurological Problems: No Hx Cerebrovascular Accident: Yes Hx Transient Ischemic Attacks: No Hx Dementia: No Hx Alzheimer's Disease: No Hx Parkinson's Disease: No Hx Meningitis: No Hx Encephalitis: No Hx Epilepsy: No Hx Multiple Sclerosis: No Hx Cerebral Palsy: No Hx Amyotrophic Lat Sclerosis: No Hx Guillian-Iselin Syndrome: No Hx Paralysis: No Hx Peripheral Neuropathy: No Hx Spinal Cord Injury: No Hx Head Trauma: No Hx Traumatic Brain Injury: No Hx Memory Loss: No Hx Concentration Difficulty: No Hx Speech Problem: No Hx Tremors: No Hx Vertigo: No Hx Dizziness: No Hx Syncope: No Hx Headaches: No Hx Aphasia: No Hx Dysphasia: No Hx Numbness: No Hx Weakness: No Hx Fatigue: No Hx Neurologic Surgery: No Hx Brain Shunt: No Review of Systems All Other Systems: negative except mentioned in HPI Physical Exam Vital Signs Date Time Temp Pulse Resp B/P Pulse Ox O2 Delivery O2 Flow Rate FiO2 09/05/16 01:26 98.8 93 15 85/60 98 Room Air 09/05/16 02:16 40 09/05/16 02:47 3.0 Sp02 EP Interpretation: reviewed, normal General Appearance: normal inspection, well appearing, no apparent distress, alert, GCS 15 Head: atraumatic ENT: normal ENT inspection, hearing grossly normal, normal voice Neck: normal inspection, full range of motion, supple, no bony tend Respiratory: normal inspection, lungs clear, normal breath sounds, no respiratory distress, no retraction, no wheezing Cardiovascular #1: regular rate, rhythm, no edema Gastrointestinal: normal inspection, normal bowel sounds, non tender, soft, no guarding, no hernia Genitourinary: no CVA tenderness Musculoskeletal: normal inspection, back normal, normal range of motion Neurologic: normal inspection, alert, responsive, speech normal Psychiatric: normal inspection, judgement/insight normal, mood/affect normal Skin: normal inspection, normal color, no rash Medical Decision Making Diagnostic Impression: Primary Impression: Congestive heart failure (CHF) Additional Impressions: ICD (implantable cardioverter-defibrillator) in place Pulmonary edema ER Course Patient presented shortness of breath. Differential included but was not limited to anemia, pneumonia, pneumothorax, myocardial infarction, pericardial effusion, congestive heart failure, acidosis. Because of complexity of patient' s case laboratory testing and imaging studies were ordered.Laboratory testing showed elevated BNP consistent with decompensated congestive heart failure. The patient started on supplemental oxygen. Patient was noted to have exam consistent with congestive heart failure. Patient noted be mildly hypotensive. The patient was started on IV Lasix. He was given digoxin IV. He had mild improvement in his blood pressure. Dr. George was contacted for inpatient management due to complexity of medical condition. Labs Test 09/05/16 02:00 White Blood Count 9.1 K/UL (4.8-10.8) Red Blood Count 4.68 M/UL (4.70-6.10) Hemoglobin 13.5 G/DL (14.2-18.0) Hematocrit 40.4 % (42.0-52.0) Mean Corpuscular Volume 86 FL (80-99) Mean Corpuscular Hemoglobin 28.9 PG (27.0-31.0) Mean Corpuscular Hemoglobin Concent 33.5 G/DL (32.0-36.0) Red Cell Distribution Width 16.1 % (11.6-14.8) Platelet Count 227 K/UL (150-450) Mean Platelet Volume 6.8 FL (6.5-10.1) Neutrophils (%) (Auto) 61.9 % (45.0-75.0) Lymphocytes (%) (Auto) 26.8 % (20.0-45.0) Monocytes (%) (Auto) 10.1 % (1.0-10.0) Eosinophils (%) (Auto) 0.3 % (0.0-3.0) Basophils (%) (Auto) 0.9 % (0.0-2.0) Sodium Level 143 mEQ/L (135-145) Potassium Level 4.2 mEQ/L (3.4-4.9) Chloride Level 100 mEQ/L (98-107) Carbon Dioxide Level 27 mEQ/L (20-30) Anion Gap 16 (5-15) Blood Urea Nitrogen 28 mg/dL (7-23) Creatinine 1.6 mg/dL (0.7-1.2) Estimat Glomerular Filtration Rate 54.9 mL/min (>60) Glucose Level 148 mg/dL (74-106) Calcium Level 9.2 mg/dL (8.6-10.2) Total Bilirubin 1.9 mg/dL (0.0-1.2) Direct Bilirubin 0.9 mg/dL (0.1-0.3) Aspartate Amino Transf (AST/SGOT) 24 U/L (5-40) Alanine Aminotransferase (ALT/SGPT) 30 U/L (3-41) Alkaline Phosphatase 45 U/L (40-129) Troponin I < 0.30 ng/mL (<=0.30) Pro-B-Type Natriuretic Peptide 5459 pg/mL (0-125) Total Protein 6.2 g/dL (6.6-8.7) Albumin 3.9 g/dL (3.5-5.2) Globulin 2.3 g/dL Albumin/Globulin Ratio 1.6 (1.0-2.7) Chest X-Ray Diagnostic Results EP Interpretation: Yes Findings: no consolidation, no effusion, no pneumothorax, no acute cardiopulmonary disease Number of Views: 1 Last Vital Signs Date Time Temp Pulse Resp B/P Pulse Ox O2 Delivery O2 Flow Rate FiO2 09/05/16 06:29 87 14 89/56 98 Nasal Cannula 3.0 09/05/16 02:47 98.7 09/05/16 02:19 40 Status: unchanged Disposition: ADMITTED INPATIENT Condition: Serious Referrals: NOT CHOSEN IPA/,REFERRING (PCP) Cody Sorenson Sep 05, 2016 07:37
--- NOTE | 2016-09-05 07:50 | History and Physical ---
History of Present Illness General Date patient seen: Sep 05, 2016 Time patient seen: 07:20 Reason for Hospitalization: Dyspnea/Respdistress Present Illness HPI 56-year-old male with PMH of CHF, cardiomyopathy. presented with increased difficulty breathing and leg swelling with gradual onset of symptoms. Patient reported compliance with medications regimen Denies fever chills occasional dry cough, no wheezing, no hemoptysis No chest pain, but progressively worse SOB Patient had recent hospitalization for similar symptoms and during hospitalization was found to have EF 20-25% started on medical management for SHF troponin elevated at 15 and at that time patient was transferred to [facility] for angio per patient had a stent placed on Plavix and high dose of statin workup in ED revealed CXR with evidence of pulmonary edema no leukocytosis, stable HH, BUN -28 creat- 1.6 and pro BNP -5459 patient was palmed on 3L O2 via NC, stable pulse oximetry afterwards started on IV Lasix and IV Digoxin and transferred to [facility] for further management Allergies: Coded Allergies: No Known Allergies (Unverified , 08/10/16) Medication History Scheduled Aspirin* (Aspir 81*), 81 MG ORAL DAILY, (Reported) Aspirin* (Aspir 81*), 81 MG ORAL DAILY, (Reported) Atorvastatin Calcium* (Atorvastatin Calcium*), 80 MG ORAL BEDTIME, (Reported) Benazepril Hcl* (Benazepril Hcl*), 20 MG ORAL EVERY 12 HOURS, (Reported) Carvedilol* (Carvedilol*), 25 MG ORAL EVERY 12 HOURS, (Reported) Carvedilol* (Carvedilol*), 25 MG ORAL EVERY 12 HOURS, (Reported) Clopidogrel* (Clopidogrel*), 75 MG ORAL DAILY, (Reported) Digoxin* (Digoxin*), 125 MCG ORAL DAILY, (Reported) Fenofibrate,Micronized (Fenofibrate), 67 MG ORAL DAILY, (Reported) Furosemide* (Lasix*), 40 MG ORAL DAILY Metformin Hcl* (Metformin Hcl*), Unknown Dose ORAL TWICE A DAY, (Reported) Metoprolol Succinate* (Metoprolol Succinate*), 25 MG ORAL DAILY, (Reported) Spironolact/Hydrochlorothiazid (Spironolactone-Hctz 25-25 Tab), 1 TAB ORAL DAILY , (Reported) Warfarin Sod (Coumadin*), 7.5 MG ORAL COUMADIN Miscellaneous Medications Heparin Sod/Dextrose* (Heparin-D5w 25,000 Unit/500 Ml*), 25,000 UNIT IV, ( Reported) Patient History History Provided By: Patient Healthcare decision maker Resuscitation status Advanced Directive on File Past Medical/Surgical History Past Medical/Surgical History: (1) Congestive heart failure (CHF) (2) ICD (implantable cardioverter-defibrillator) in place (3) Ventricular mural thrombus (4) Acute respiratory failure (5) Atrial flutter Review of Systems Constitutional: Reports: weakness ENT: Reports: no symptoms Respiratory: Reports: see HPI Cardiovascular: Reports: see HPI Gastrointestinal: Reports: no symptoms Genitourinary: Reports: no symptoms Musculoskeletal: Reports: no symptoms Skin: Reports: no symptoms Neurological: Reports: no symptoms Endocrine: Reports: other - diabetes Hematologic/Lymphatic: Reports: no symptoms Physical Exam General Appearance: no apparent distress, alert Lines, tubes and drains: peripheral HEENT: normocephalic, atraumatic, anicteric, PERRL Neck: non-tender, supple, normal inspection Respiratory/Chest: no respiratory distress, no accessory muscle use, crackles/ rales - scattered Cardiovascular/Chest: regular rhythm - SR now , no JVD Abdomen: normal bowel sounds, soft, no organomegaly Extremities: normal range of motion, non-tender, no calf tenderness, normal capillary refill, other - +1edema BLE Skin Exam: warm/dry Neurologic: no motor/sensory deficits, alert Musculoskeletal: normal muscle bulk Last 24 Hour Vital Signs Date Time Temp Pulse Resp B/P Pulse Ox O2 Delivery O2 Flow Rate FiO2 09/05/16 06:29 87 14 89/56 98 Nasal Cannula 3.0 09/05/16 04:56 96 17 95/66 98 Nasal Cannula 3.0 09/05/16 03:53 88 23 90/70 100 Nasal Cannula 3.0 09/05/16 03:20 94 09/05/16 02:47 98.7 95 24 87/64 99 Nasal Cannula 3.0 09/05/16 02:19 91 23 100 Facial 40 09/05/16 02:19 91 23 Bi-pap 40 09/05/16 02:16 40 09/05/16 01:43 93 15 Room Air 09/05/16 01:26 98.8 93 15 85/60 98 Room Air Intake and Output 09/04/16 09/05/16 19:00 07:00 Output Total 950 ml Balance -950 ml Output Urine Total 950 ml # Voids 3 Laboratory Tests Test 09/05/16 02:00 White Blood Count 9.1 K/UL (4.8-10.8) Red Blood Count 4.68 M/UL (4.70-6.10) L Hemoglobin 13.5 G/DL (14.2-18.0) L Hematocrit 40.4 % (42.0-52.0) L Mean Corpuscular Volume 86 FL (80-99) Mean Corpuscular Hemoglobin 28.9 PG (27.0-31.0) Mean Corpuscular Hemoglobin Concent 33.5 G/DL (32.0-36.0) Red Cell Distribution Width 16.1 % (11.6-14.8) H Platelet Count 227 K/UL (150-450) Mean Platelet Volume 6.8 FL (6.5-10.1) Neutrophils (%) (Auto) 61.9 % (45.0-75.0) Lymphocytes (%) (Auto) 26.8 % (20.0-45.0) Monocytes (%) (Auto) 10.1 % (1.0-10.0) H Eosinophils (%) (Auto) 0.3 % (0.0-3.0) Basophils (%) (Auto) 0.9 % (0.0-2.0) Sodium Level 143 mEQ/L (135-145) Potassium Level 4.2 mEQ/L (3.4-4.9) Chloride Level 100 mEQ/L (98-107) Carbon Dioxide Level 27 mEQ/L (20-30) Anion Gap 16 (5-15) H Blood Urea Nitrogen 28 mg/dL (7-23) H Creatinine 1.6 mg/dL (0.7-1.2) H Estimat Glomerular Filtration Rate 54.9 mL/min (>60) Glucose Level 148 mg/dL (74-106) H Calcium Level 9.2 mg/dL (8.6-10.2) Total Bilirubin 1.9 mg/dL (0.0-1.2) H Direct Bilirubin 0.9 mg/dL (0.1-0.3) H Aspartate Amino Transf (AST/SGOT) 24 U/L (5-40) Alanine Aminotransferase (ALT/SGPT) 30 U/L (3-41) Alkaline Phosphatase 45 U/L (40-129) Troponin I < 0.30 ng/mL (<=0.30) Pro-B-Type Natriuretic Peptide 5459 pg/mL (0-125) H Total Protein 6.2 g/dL (6.6-8.7) L Albumin 3.9 g/dL (3.5-5.2) Globulin 2.3 g/dL Albumin/Globulin Ratio 1.6 (1.0-2.7) Height (Feet): 5 Height (Inches): 9.00 Weight (Pounds): 185 Medications Current Medications Medications (Trade) Dose Ordered Sig/Ana Route PRN Reason Start Time Stop Time Status Last Admin Dose Admin Acetaminophen (Tylenol) 650 mg Q4H PRN ORAL Fever 09/05/16 06:30 10/05/16 06:29 Albuterol/ Ipratropium (DuoNeb 0.5-3(2.5)mg/3ml) 3 ml Q4H PRN HHN Shortness of Breath 09/05/16 06:30 09/10/16 06:29 Atorvastatin Calcium (Lipitor) 80 mg BEDTIME ORAL 09/05/16 21:00 10/05/16 20:59 Carvedilol (Coreg) 25 mg EVERY 12 HOURS ORAL 09/05/16 09:00 10/05/16 08:59 Clopidogrel Bisulfate (Plavix) 75 mg DAILY ORAL 09/05/16 09:00 10/05/16 08:59 Dextrose (Dextrose 50%) STAT PRN IV Hypoglycemia 09/05/16 06:30 10/05/16 06:29 Digoxin (Lanoxin) 0.125 mg DAILY ORAL 09/05/16 09:00 10/05/16 08:59 UNV Furosemide (Lasix) 40 mg EVERY 8 HOURS IV 09/05/16 14:00 10/05/16 13:59 Heparin Sodium (Porcine) (Heparin 5000 units/ml) 5,000 units EVERY 12 HOURS SUBQ 09/05/16 09:00 10/05/16 08:59 UNV Insulin Aspart (NovoLOG) BEFORE MEALS AND HS SUBQ 09/05/16 11:30 10/05/16 11:29 Ondansetron HCl (Zofran) 4 mg Q6H PRN IVP Nausea & Vomiting 09/05/16 06:30 10/05/16 06:29 Polyethylene Glycol (Miralax) 17 gm DAILYPRN PRN ORAL Constipation 09/05/16 06:30 10/05/16 06:29 Temazepam (Restoril) 15 mg HSPRN PRN ORAL Insomnia 09/05/16 06:30 09/12/16 06:29 Warfarin Sodium (Coumadin per pharmacy) 1 ea DAILY PRN MISC Per rx protocol 09/05/16 06:45 10/05/16 06:44 Warfarin Sodium (Coumadin) 7.5 mg COUMADIN ORAL 09/05/16 17:00 09/10/16 16:59 UNV Assessment/Plan Assessment/Plan ASSESSMENT acute respiratory distress ( 2 to pulmonary edema) pulmonary edema systolic heart failure cardiomyopathy AICD Paroxysmal A fib severe pulmonary HTN moderate to severe MR moderate TR CARLI ventricular mural thrombosis DM hypomagnesemia PLAN OF CARE [facility] O2, HHN titrate to keep sat above 92% diuresis with Lasix medical management of CHF with BB, SHABNAM and diuretics as BP allows continue Plavix and statin cardio eval monitor I/O, renal parameters, lytes and replace as needed caution since creat on admission-1.6 avoid other nephrotoxic last ECHO in August with EF 20-25% and RVSP of 64 c/w severe pulmonary HTN, as well as evidence of possible ventricular thrombus , moderate to severe MR and moderate TR at that time CTA chest- negative and venous Duplex BLE negative a/coagulation with Coumadin to keep INR in therapeutic range, encourage compliance rate control with BB and Digoxin BS management ith SS of insulin ( hold metformin due to elevated creat) replace Mg case discussed and evaluated by supervising physician Ronak Zafar)Irene SAFETY ATTENDANT Sep 05, 2016 07:50
[2016-09-05] MEDS ORDERED: Heparin 5000 units/ml inj SUBQ SCH (09:00)
[2016-09-05] MEDS: Carvedilol 25mg Tab ORAL SCH ×2 (09:25→20:31)
[2016-09-05] MEDS ORDERED: sitaGLIPtin 25mg tab ORAL SCH (10:30)
--- NOTE | 2016-09-05 11:06 | Diagnostic Imaging Report ---
Indication: Chest Pain Comparison: 08/11/16 A single view chest radiograph was obtained. Findings: There is interstitial edema suspected with cardiomegaly and prominent pulmonary vascularity. Pacemaker noted on the left. Impression: CHF
[2016-09-05] MEDS: NovoLOG Insulin Flexpen SUBQ SCH ×3 (11:23→20:36)
[2016-09-05 11:31] LABS: INR 1.3 (0.9-1.1)
[2016-09-05 11:41] LABS: MAGNESIUM 1.5 mg/dL (1.7-2.5)
[2016-09-05 11:43] LABS: TROPONIN I < 0.30 ng/mL (<=0.30)
[2016-09-05] MEDS ORDERED: Warfarin Sodium 7.5mg ORAL ONE (17:00)
[2016-09-05] MEDS: Digoxin 0.125mg tab ORAL SCH (17:27)
[2016-09-05] MEDS: Enalapril 2.5mg tab ORAL SCH (17:41)
[2016-09-05] MEDS: Atorvastatin 80mg tab ORAL SCH (20:30)
[2016-09-05] MEDS: Amiodarone 200mg tab ORAL SCH (20:32)
[2016-09-06] VITALS: BP 85/67
--- NOTE | 2016-09-06 01:30 | Consultation ---
DATE OF CONSULTATION: 09/05/2016 CARDIOLOGY CONSULTATION HISTORY OF PRESENT ILLNESS: This is a 56-year-old, black male, who came in with worsening lower extremity edema and shortness of breath. The patient has history of dilated cardiomyopathy for many years, unclear etiology according to him, also history of coronary stent years ago. He was here and then according to him transferred to [facility] last admission, the patient came back with shortness of breath, orthopnea, wheezing, and lower extremity edema. He said when he was discharged from [facility] he did not feel any better whatsoever. He also had history of suspicion of LV thrombus and he was anticoagulated in the past, also paroxysmal atrial fibrillation although now he is in sinus rhythm. ALLERGIES: Not reported. HABITS: He used to use cocaine many years ago, he quit. REVIEW OF SYSTEMS: He denies any fever, hemoptysis. He has lower extremity edema, severe generalized weakness, shortness of breath with ambulation, orthopnea. He denies any chest pain. PHYSICAL EXAMINATION: GENERAL: Remarkable for middle-age man, appeared to be in moderate dyspnea blood. VITAL SIGNS: Blood pressure 120/80, heart rate 60, temperature normal, oxygen saturation 97% on three liters of oxygen. HEENT: PERRLA. EOMI. NECK: Supple. Jugular pressure is elevated up to 12 cm. He had brisk carotid upstroke without bruit. LUNGS: He has crackles bilaterally and anterior wheezing. He has had defibrillator on the left side. PMI is palpable in seventh intercostal space and mid axillary line. He has positive S3. He has holosystolic murmur on the apex radiating to the axilla, diminished S1, slightly accentuated P2. ABDOMEN: soft. Liver is just at the age. No masses palpable. EXTREMITIES: Lower extremities, moderate edema bilaterally. NEUROLOGICALLY: Intact. LABORATORY DATA: Significant for white count is 9.1, hemoglobin 13.5, platelets 227,000. Creatinine is 1.6 with BUN 28. Troponin 0.03. Chest x-ray shows cardiomegaly and congestive heart failure. EKG was done today and the patient is actually in sinus rhythm with evidence of left atrial enlargement and right ventricular hypertrophy. His echo was reviewed as well and showed severe depressed left ventricular function. IMPRESSION AND RECOMMENDATION: 1. Congestive heart failure, acute on chronic, due to left ventricular systolic dysfunction. 2. Paroxysmal atrial fibrillation, defibrillator in place, etiology questionable cocaine versus ischemic. I have to review his chart in more detail. The patient at present time was placed on diuretics. He was started on Coumadin and Lipitor, was given digoxin one dose and beta blockers. He has defibrillator, so I agree with above orders. He also needs to have SHABNAM inhibitor on. There is no evidence of allergies so SHABNAM inhibitor would be appropriate. We need to review and see if his defibrillator needs to be interrogated and review of his notes to see of any additional studies or treatment should be done. Thank you for your consultation. Gloria Woodson M.D. DR: Dwayne JOB#: [id number] CC:
[2016-09-06 04:00] VITALS: BP 96/67
[2016-09-06] MEDS: NovoLOG Insulin Flexpen SUBQ SCH ×4 (06:27→21:00)
[2016-09-06 08:00] VITALS: BP 92/64
[2016-09-06 08:10] LABS: BASOPHILS % (AUTO) 0.5 % (0.0-2.0); EOSINOPHILS % (AUTO) 0.9 % (0.0-3.0); LYMPHOCYTES % (AUTO) 19.1 % (20.0-45.0); MEAN CORPUSCULAR HEMOGLOBIN 28.3 PG (27.0-31.0); MEAN CORPUSCULAR HGB CONC 33.1 G/DL (32.0-36.0); MEAN CORPUSCULAR VOLUME 86 FL (80-99); MEAN PLATELET VOLUME 6.9 FL (6.5-10.1); MONOCYTES % (AUTO) 8.7 % (1.0-10.0); NEUTROPHILS % (AUTO) 70.7 % (45.0-75.0); PLATELET COUNT 192 K/UL (150-450); RED CELL DISTRIBUTION WIDTH 16.2 % (11.6-14.8); WHITE BLOOD COUNT 8.3 K/UL (4.8-10.8)
[2016-09-06 08:19] LABS: INR 1.3 (0.9-1.1); PROTHROMBIN TIME 13.4 SEC (9.30-11.50)
[2016-09-06 08:25] LABS: TROPONIN I < 0.30 ng/mL (<=0.30)
[2016-09-06 08:26] LABS: ANION GAP 13 (5-15); CALCIUM 8.6 mg/dL (8.6-10.2); CARBON DIOXIDE 29 mEQ/L (20-30); CHLORIDE 101 mEQ/L (98-107); CREATININE 1.2 mg/dL (0.7-1.2); GLOMERULAR FILTRATION RATE > 60 mL/min (>60); HEMOLYSIS 1; PHOSPHORUS 3.5 mg/dL (2.5-4.8); POTASSIUM 3.6 mEQ/L (3.4-4.9); SODIUM 143 mEQ/L (135-145)
[2016-09-06] MEDS: Carvedilol 25mg Tab ORAL SCH ×2 (09:39→21:00)
[2016-09-06] MEDS: Amiodarone 200mg tab ORAL SCH ×2 (09:39→22:23)
[2016-09-06] MEDS: Enalapril 2.5mg tab ORAL SCH ×2 (09:46→21:00)
[2016-09-06] MEDS: Digoxin 0.125mg tab ORAL SCH (09:46)
[2016-09-06 12:00] VITALS: BP 100/59
--- NOTE | 2016-09-06 12:43 | Diagnostic Imaging Report ---
Indication: Dyspnea Comparison: 09/05/16 A single view chest radiograph was obtained. Findings: Interstitial edema is present but appears slightly improved. Heart remains enlarged. Pacemaker again noted. Impression: Mild interstitial edema. Some improvement since the last exam is likely.
--- NOTE | 2016-09-06 13:03 | Pulmonology Progress Note ---
Assessment/Plan Problems: (1) Purulent bronchitis (2) Ventricular mural thrombus (3) ICD (implantable cardioverter-defibrillator) in place (4) Congestive heart failure (CHF) (5) Pulmonary edema Assessment/Plan decrease Lasix to qd add zosyn sputum for c/s cardio to follow. Subjective Interval Events: couging up greenish phelgmn Allergies: Coded Allergies: No Known Allergies (Unverified , 08/10/16) Objective Last 24 Hour Vital Signs Date Time Temp Pulse Resp B/P Pulse Ox O2 Delivery O2 Flow Rate FiO2 09/06/16 09:46 92/64 09/06/16 09:46 91 09/06/16 09:39 91 92/09/06/16 08:27 Nasal Cannula 2.0 28 09/06/16 08:27 93 Nasal Cannula 2.0 28 09/06/16 08:26 91 20 Nasal Cannula 2.0 40 09/06/16 08:00 97.5 89 20 92/64 95 Nasal Cannula 2.0 09/06/16 08:00 88 09/06/16 04:00 91 09/06/16 04:00 98.2 86 20 96/67 93 Nasal Cannula 2.0 40 09/06/16 00:00 89 09/06/16 00:00 97.7 79 19 85/67 96 Nasal Cannula 2.0 40 09/05/16 20:31 88 91/61 09/05/16 20:00 91 09/05/16 20:00 98.1 82 20 91/61 96 Nasal Cannula 2.0 40 09/05/16 17:41 99/58 09/05/16 17:27 89 09/05/16 16:15 97.5 89 20 99/58 96 Nasal Cannula 2.0 09/05/16 16:00 94 Intake and Output 09/05/16 09/06/16 19:00 07:00 Intake Total 620 ml 120 ml Output Total 700 ml Balance -80 ml 120 ml Intake Oral 420 ml 120 ml IV Total 200 ml Output Urine Total 700 ml # Voids 2 General Appearance: cachetic HEENT: normocephalic, atraumatic Respiratory/Chest: chest wall non-tender, lungs clear Cardiovascular: normal peripheral pulses, normal rate Abdomen: normal bowel sounds, soft, non tender Genitourinary: normal external genitalia Extremities: no clubbing Skin: no rash 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, abnormal gait Laboratory Tests 09/06/16 07:00: White Blood Count 8.3, Red Blood Count 4.40L, Hemoglobin 12.5L, Hematocrit 37.7L , Mean Corpuscular Volume 86, Mean Corpuscular Hemoglobin 28.3, Mean Corpuscular Hemoglobin Concent 33.1, Red Cell Distribution Width 16.2H, Platelet Count 192, Mean Platelet Volume 6.9, Neutrophils (%) (Auto) 70.7, Lymphocytes (%) (Auto) 19.1L, Monocytes (%) (Auto) 8.7, Eosinophils (%) (Auto) 0.9, Basophils (%) (Auto) 0.5, Prothrombin Time 13.4H, Prothromb Time International Ratio 1.3H, Sodium Level 143, Potassium Level 3.6, Chloride Level 101, Carbon Dioxide Level 29, Anion Gap 13, Blood Urea Nitrogen 20, Creatinine 1.2, Estimat Glomerular Filtration Rate > 60, Glucose Level 121H, Calcium Level 8.6, Phosphorus Level 3.5, Troponin I < 0.30, Pro-B-Type Natriuretic Peptide 4059H, Albumin 3.6, Digoxin Level 0.3L Current Medications Medications (Trade) Dose Ordered Sig/Ana Route PRN Reason Start Time Stop Time Status Last Admin Dose Admin Acetaminophen (Tylenol) 650 mg Q4H PRN ORAL Fever 09/05/16 06:30 10/05/16 06:29 Albuterol/ Ipratropium (DuoNeb 0.5-3(2.5)mg/3ml) 3 ml Q4H PRN HHN Shortness of Breath 09/05/16 06:30 09/10/16 06:29 Amiodarone HCl (Cordarone) 200 mg EVERY 12 HOURS ORAL 09/05/16 21:00 10/05/16 20:59 09/06/16 09:39 Atorvastatin Calcium (Lipitor) 80 mg BEDTIME ORAL 09/05/16 21:00 10/05/16 20:59 09/05/16 20:30 Carvedilol (Coreg) 25 mg EVERY 12 HOURS ORAL 09/05/16 09:00 10/05/16 08:59 09/06/16 09:39 Clopidogrel Bisulfate (Plavix) 75 mg DAILY ORAL 09/05/16 09:00 10/05/16 08:59 09/06/16 09:38 Dextrose (Dextrose 50%) STAT PRN IV Hypoglycemia 09/05/16 06:30 10/05/16 06:29 Digoxin (Lanoxin) 0.125 mg DAILY ORAL 09/05/16 18:00 10/05/16 17:59 09/06/16 09:46 Enalapril Maleate (Vasotec) 2.5 mg EVERY 12 HOURS ORAL 09/05/16 18:00 10/05/16 17:59 Furosemide (Lasix) 40 mg EVERY 8 HOURS IV 09/05/16 14:00 10/05/16 13:59 09/06/16 06:25 Insulin Aspart (NovoLOG) BEFORE MEALS AND HS SUBQ 09/05/16 11:30 10/05/16 11:29 09/06/16 06:27 Ondansetron HCl (Zofran) 4 mg Q6H PRN IVP Nausea & Vomiting 09/05/16 06:30 10/05/16 06:29 Polyethylene Glycol (Miralax) 17 gm DAILYPRN PRN ORAL Constipation 09/05/16 06:30 10/05/16 06:29 Temazepam (Restoril) 15 mg HSPRN PRN ORAL Insomnia 09/05/16 06:30 09/12/16 06:29 Warfarin Sodium (Coumadin per pharmacy) 1 ea DAILY PRN MISC Per rx protocol 09/05/16 06:45 10/05/16 06:44 Warfarin Sodium (Coumadin) 7.5 mg COUMADIN ONCE ORAL 09/06/16 17:00 09/06/16 17:01 SHIMON WILLAMS Sep 06, 2016 13:03
[2016-09-06] MEDS: DuoNeb 0.5-3(2.5)mg/3ml neb HHN SCH ×2 (13:43→19:32)
[2016-09-06] MEDS ORDERED: Promethazine/Codeine 5ml UD ORAL PRN (14:00)
--- NOTE | 2016-09-06 14:09 | Diagnostic Imaging Report ---
APPROVED REPORT CPT Code: 42792 Present Symptoms Lower Extremity Pain: Bilateral Shortness of breath BILATERAL: Imaging reveals a patent deep venous system bilaterally. There is no evidence of thrombus within the femoral, popliteal or tibial segments. The greater saphenous veins are also within normal limits. Doppler indicates normal spontaneous flow within these segments.
[2016-09-06 16:00] VITALS: BP 93/73
[2016-09-06] MEDS: Piperacillin/Tazobactam 3.375 GM in NS 110 ML IVPB SCH ×2 (16:04→22:21)
[2016-09-06] MEDS ORDERED: Warfarin Sodium 7.5mg ORAL ONE (17:00)
[2016-09-06 20:00] VITALS: BP 102/77
[2016-09-06] MEDS: Atorvastatin 80mg tab ORAL SCH (22:22)
[2016-09-07] VITALS: BP 95/67
[2016-09-07] MEDS: DuoNeb 0.5-3(2.5)mg/3ml neb HHN SCH ×3 (01:00→13:00)
[2016-09-07 04:00] VITALS: BP 97/71
[2016-09-07] MEDS: Piperacillin/Tazobactam 3.375 GM in NS 110 ML IVPB SCH ×2 (05:28→14:44)
[2016-09-07] MEDS: NovoLOG Insulin Flexpen SUBQ SCH ×3 (05:54→17:18)
[2016-09-07 07:46] VITALS: BP 99/61
[2016-09-07] MEDS: Amiodarone 200mg tab ORAL SCH (08:32)
[2016-09-07] MEDS: Digoxin 0.125mg tab ORAL SCH (08:34)
[2016-09-07] MEDS: Carvedilol 25mg Tab ORAL SCH (08:36)
[2016-09-07] MEDS: Enalapril 2.5mg tab ORAL SCH (08:37)
[2016-09-07 09:08] LABS: BASOPHILS % (AUTO) 0.8 % (0.0-2.0); LYMPHOCYTES % (AUTO) 18.4 % (20.0-45.0); MEAN CORPUSCULAR HEMOGLOBIN 27.3 PG (27.0-31.0); MEAN CORPUSCULAR HGB CONC 31.6 G/DL (32.0-36.0); MEAN CORPUSCULAR VOLUME 86 FL (80-99); MEAN PLATELET VOLUME 6.9 FL (6.5-10.1); MONOCYTES % (AUTO) 8.3 % (1.0-10.0); NEUTROPHILS % (AUTO) 71.6 % (45.0-75.0); PLATELET COUNT 210 K/UL (150-450); RED CELL DISTRIBUTION WIDTH 16.4 % (11.6-14.8); WHITE BLOOD COUNT 6.9 K/UL (4.8-10.8)
[2016-09-07 09:20] LABS: INR 1.3 (0.9-1.1); PROTHROMBIN TIME 13.5 SEC (9.30-11.50)
[2016-09-07 09:26] LABS: TROPONIN I < 0.30 ng/mL (<=0.30)
[2016-09-07 09:27] LABS: ALANINE AMINOTRANSFERASE 21 U/L (3-41); ALBUMIN/GLOBULIN RATIO 1.4 (1.0-2.7); ANION GAP 13 (5-15); ASPARTATE AMINO TRANSFERASE 15 U/L (5-40); CARBON DIOXIDE 28 mEQ/L (20-30); CHLORIDE 99 mEQ/L (98-107); CREATININE 1.3 mg/dL (0.7-1.2); GLOMERULAR FILTRATION RATE > 60 mL/min (>60); HEMOLYSIS 1; POTASSIUM 4.4 mEQ/L (3.4-4.9); SODIUM 140 mEQ/L (135-145); TOTAL PROTEIN 5.9 g/dL (6.6-8.7)
--- NOTE | 2016-09-07 09:34 | Cardiology Progress Note ---
Assessment/Plan Assessment/Plan 1. s/p recnt Myocardial infarction. 2. Status post percutaneous coronary intervention of the circumflex artery 2016 3. Cardiomyopathy. ejection fraction of 20% 4. History of intracardiac defibrillator placement. 5. History of prior stent. 6. Mitral regurgitation sever on recent [facility] record 7. Pulmonary hypertension. 8. Tricuspid regurgitation. 9. Paroxysmal atrial fibrillation. 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 Dominance: Right. 2. LM: The LM is a large caliber vessel with 20% stenosis in the distal part and DENA-3 flow throughout the LM. 3. LAD: The LAD is a medium caliber vessel. There is an open stent in the proximal LAD with mild ISR. There is diffuse 50% to 60% stenosis in the mid LAD and diffusely diseased 1st diagonal which is a small caliber vessel. There is DENA-3 flow throughout the LAD. 4. LCX: The LCX is a medium caliber vessel. It has a 1st small caliber branch OM , a 2nd small caliber branch OM, and there is a complete 100% occlusion in the ostium of the 3rd OM with DENA-0 flow throughout the OM. The AV groove circ is open with diffuse mild disease and DENA-3 flow. 5. RCA: The RCA is a medium caliber vessel with irregularities in the proximal, mid, and distal part, but without significant stenosis. There is DENA-3 flow throughout the RCA. PERCUTANEOUS CORONARY INTERVENTION: Lesion #1: 1. Status post percutaneous coronary intervention to the 3rd OM with a 2.5 x 16 mm Synergy drug-eluting stent. 2. Pre PCI lesion length was 15 mm. Stenosis is 100%, DENA-0 flow. 3. Post PCI 0% residual stenosis, DENA-3 flow. Subjective Cardiovascular: Denies: chest pain, lightheadedness, palpitations Respiratory: Denies: shortness of breath Gastrointestinal/Abdominal: Denies: abdominal pain Genitourinary: Denies: burning Subjective Objective Last 24 Hour Vital Signs Date Time Temp Pulse Resp B/P Pulse Ox O2 Delivery O2 Flow Rate FiO2 09/07/16 08:37 99/61 09/07/16 08:36 108 99/61 09/07/16 08:34 108 09/07/16 07:46 97.2 108 18 99/61 96 Nasal Cannula 2.0 09/07/16 07:05 Nasal Cannula 2.0 28 09/07/16 07:05 28 09/07/16 07:05 Nasal Cannula 2.0 28 09/07/16 07:05 Nasal Cannula 2.0 09/07/16 07:05 105 18 Room Air 09/07/16 07:05 93 Nasal Cannula 2.0 09/07/16 04:00 97.0 101 20 97/71 96 Room Air 2.0 09/07/16 04:00 103 09/07/16 01:02 21 09/07/16 01:02 Room Air 09/07/16 01:02 Room Air 09/07/16 00:00 81 09/07/16 00:00 97.0 91 18 95/67 96 Room Air 2.0 09/06/16 21:00 95/67 09/06/16 21:00 72 95/67 09/06/16 20:00 82 09/06/16 20:00 97.0 86 18 102/77 96 Room Air 2.0 09/06/16 19:34 85 18 95 Room Air 09/06/16 19:34 21 09/06/16 19:33 Room Air 09/06/16 19:33 95 Room Air 09/06/16 19:33 Room Air 09/06/16 19:32 86 18 Room Air 09/06/16 16:00 97.0 67 18 93/73 92 Room Air 09/06/16 13:53 86 21 96 Nasal Cannula 2.0 09/06/16 13:43 28 09/06/16 13:43 80 19 94 Nasal Cannula 2.0 09/06/16 13:00 83 09/06/16 12:00 84 09/06/16 12:00 97.0 80 19 100/59 94 Nasal Cannula 2.0 09/06/16 09:46 92/64 09/06/16 09:46 91 09/06/16 09:39 91 92/64 General Appearance: no apparent distress, alert Neck: no JVD Cardiovascular: irregularly irregular Respiratory/Chest: crackles/rales Abdomen: normal bowel sounds, non tender, soft Extremities: moderate edema Intake and Output 09/06/16 09/07/16 19:00 07:00 Intake Total 470 ml 240 ml Output Total 550 ml 400 ml Balance -80 ml -160 ml Intake Oral 360 ml 240 ml IV Total 110 ml Output Urine Total 550 ml 400 ml # Voids 1 1 # Bowel Movements 1 Laboratory Tests Test 09/07/16 08:40 White Blood Count 6.9 K/UL (4.8-10.8) Red Blood Count 4.90 M/UL (4.70-6.10) Hemoglobin 13.4 G/DL (14.2-18.0) L Hematocrit 42.3 % (42.0-52.0) Mean Corpuscular Volume 86 FL (80-99) Mean Corpuscular Hemoglobin 27.3 PG (27.0-31.0) Mean Corpuscular Hemoglobin Concent 31.6 G/DL (32.0-36.0) L Red Cell Distribution Width 16.4 % (11.6-14.8) H Platelet Count 210 K/UL (150-450) Mean Platelet Volume 6.9 FL (6.5-10.1) Neutrophils (%) (Auto) 71.6 % (45.0-75.0) Lymphocytes (%) (Auto) 18.4 % (20.0-45.0) L Monocytes (%) (Auto) 8.3 % (1.0-10.0) Eosinophils (%) (Auto) 1.0 % (0.0-3.0) Basophils (%) (Auto) 0.8 % (0.0-2.0) Prothrombin Time 13.5 SEC (9.30-11.50) H Prothromb Time International Ratio 1.3 (0.9-1.1) H Sodium Level Pending Potassium Level Pending Chloride Level Pending Carbon Dioxide Level Pending Blood Urea Nitrogen Pending Creatinine Pending Estimat Glomerular Filtration Rate Pending Glucose Level Pending Calcium Level Pending Total Bilirubin Pending Aspartate Amino Transf (AST/SGOT) Pending Alanine Aminotransferase (ALT/SGPT) Pending Alkaline Phosphatase Pending Troponin I Pending Pro-B-Type Natriuretic Peptide Pending Total Protein Pending Albumin Pending Globulin Pending Microbiology Date/Time Source Procedure Growth Status 09/06/16 15:52 Sputum Gram Stain Pending Resulted 09/06/16 15:52 Sputum Sputum Culture - Preliminary Resulted 09/05/16 03:00 Nasal Nares MRSA Culture - Final NO METHICILLIN RESISTANT STAPH AUREUS... Complete 09/05/16 03:00 Rectum VRE Culture - Final NO VANCOMYCIN RESISTANT ENTEROCOCCUS ... Complete AUBRIE TRIVEDI Sep 07, 2016 09:33
[2016-09-07 09:48] LABS: BILIRUBIN,DIRECT 0.9 mg/dL (0.1-0.3)
[2016-09-07] MEDS ORDERED: Aspirin EC 81mg tab ORAL SCH (10:00)
--- NOTE | 2016-09-07 11:07 | Diagnostic Imaging Report ---
Indication: Dyspnea Comparison: 09/06/2016 A single view chest radiograph was obtained. Findings: Hazy groundglass interstitial opacification of the lungs bilaterally with cardiomegaly. Pacemaker again noted. Impression: CHF/interstitial edema without change
[2016-09-07 11:21] VITALS: BP 95/56
[2016-09-07 15:32] VITALS: BP 100/78
[2016-09-07] MEDS ORDERED: PACERONE200 MG ORAL (16:29)
[2016-09-07] MEDS ORDERED: NS 275ml ONE (16:34)
[2016-09-07] MEDS ORDERED: Tubing IV Secondary IV ONE ×2 (16:34→18:14)
[2016-09-07] MEDS ORDERED: Warfarin Sodium 10mg ORAL ONE (17:00)
--- NOTE | 2016-09-07 18:18 | Pulmonology Progress Note ---
Assessment/Plan Problems: (1) Purulent bronchitis (2) Ventricular mural thrombus (3) ICD (implantable cardioverter-defibrillator) in place (4) Congestive heart failure (CHF) (5) Pulmonary edema Assessment/Plan cough much better sputum for c/s pt insists on going home will dc with oral antibiotics Subjective ROS Limited/Unobtainable: No Constitutional: Reports: no symptoms Allergies: Coded Allergies: No Known Allergies (Unverified , 08/10/16) Objective Last 24 Hour Vital Signs Date Time Temp Pulse Resp B/P Pulse Ox O2 Delivery O2 Flow Rate FiO2 09/07/16 15:32 97.9 97 20 100/78 97 Nasal Cannula 2.0 09/07/16 13:29 28 09/07/16 13:29 Nasal Cannula 2.0 28 09/07/16 13:29 Nasal Cannula 2.0 28 09/07/16 11:48 92 09/07/16 11:21 97.0 108 20 95/56 95 Nasal Cannula 2.0 09/07/16 08:37 99/61 09/07/16 08:36 108 99/61 09/07/16 08:34 108 09/07/16 07:54 106 09/07/16 07:46 97.2 108 18 99/61 96 Nasal Cannula 2.0 09/07/16 07:05 Nasal Cannula 2.0 28 09/07/16 07:05 28 09/07/16 07:05 Nasal Cannula 2.0 28 09/07/16 07:05 Nasal Cannula 2.0 28 09/07/16 07:05 105 18 Room Air 09/07/16 07:05 93 Nasal Cannula 2.0 09/07/16 04:00 97.0 101 20 97/71 96 Room Air 2.0 09/07/16 04:00 103 09/07/16 01:02 09/07/16 01:02 Room Air 09/07/16 01:02 Room Air 09/07/16 00:00 81 09/07/16 00:00 97.0 91 18 95/67 96 Room Air 2.0 09/06/16 21:00 95/67 09/06/16 21:00 72 95/67 09/06/16 20:00 82 09/06/16 20:00 97.0 86 18 102/77 96 Room Air 2.0 21 09/06/16 19:34 85 18 95 Room Air 09/06/16 19:34 21 09/06/16 19:33 Room Air 09/06/16 19:33 95 Room Air 09/06/16 19:33 Room Air 09/06/16 19:32 86 18 Room Air Intake and Output 09/06/16 09/07/16 19:00 07:00 Intake Total 470 ml 240 ml Output Total 550 ml 400 ml Balance -80 ml -160 ml Intake Oral 360 ml 240 ml IV Total 110 ml Output Urine Total 550 ml 400 ml # Voids 1 1 # Bowel Movements 1 General Appearance: WD/WN HEENT: normocephalic, atraumatic Respiratory/Chest: chest wall non-tender, lungs clear Cardiovascular: normal peripheral pulses, normal rate Abdomen: normal bowel sounds, soft, non tender Genitourinary: normal external genitalia Extremities: no cyanosis Skin: no rash 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 Complete 09/05/16 03:00 Rectum VRE Culture - Final NO VANCOMYCIN RESISTANT ENTEROCOCCUS ... Complete Laboratory Tests 09/07/16 08:40: White Blood Count 6.9, Red Blood Count 4.90, Hemoglobin 13.4L, Hematocrit 42.3, Mean Corpuscular Volume 86, Mean Corpuscular Hemoglobin 27.3, Mean Corpuscular Hemoglobin Concent 31.6L, Red Cell Distribution Width 16.4H, Platelet Count 210 , Mean Platelet Volume 6.9, Neutrophils (%) (Auto) 71.6, Lymphocytes (%) (Auto) 18.4L, Monocytes (%) (Auto) 8.3, Eosinophils (%) (Auto) 1.0, Basophils (%) (Auto ) 0.8, Prothrombin Time 13.5H, Prothromb Time International Ratio 1.3H, Sodium Level 140, Potassium Level 4.4, Chloride Level 99, Carbon Dioxide Level 28, Anion Gap 13, Blood Urea Nitrogen 22, Creatinine 1.3H, Estimat Glomerular Filtration Rate > 60, Glucose Level 217H, Calcium Level 9.0, Total Bilirubin 1.9H, Direct Bilirubin 0.9H, Aspartate Amino Transf (AST/SGOT) 15, Alanine Aminotransferase (ALT/SGPT) 21, Alkaline Phosphatase 39L, Troponin I < 0.30, Pro -B-Type Natriuretic Peptide 6313H, Total Protein 5.9L, Albumin 3.5, Globulin 2.4 , Albumin/Globulin Ratio 1.4 Current Medications Medications (Trade) Dose Ordered Sig/Ana Route PRN Reason Start Time Stop Time Status Last Admin Dose Admin Acetaminophen (Tylenol) 650 mg Q4H PRN ORAL Fever 09/05/16 06:30 10/05/16 06:29 Albuterol/ Ipratropium (DuoNeb 0.5-3(2.5)mg/3ml) 3 ml Q4H PRN HHN Shortness of Breath 09/05/16 06:30 09/10/16 06:29 Albuterol/ Ipratropium (DuoNeb 0.5-3(2.5)mg/3ml) 3 ml Q6HRT HHN 09/06/16 14:00 09/11/16 13:59 09/06/16 13:43 Amiodarone HCl (Cordarone) 200 mg EVERY 12 HOURS ORAL 09/05/16 21:00 10/05/16 20:59 09/07/16 08:32 Aspirin (Ecotrin) 81 mg DAILY ORAL 09/07/16 10:00 10/07/16 09:59 09/07/16 10:09 Atorvastatin Calcium (Lipitor) 80 mg BEDTIME ORAL 09/05/16 21:00 10/05/16 20:59 09/06/16 22:22 Carvedilol (Coreg) 25 mg EVERY 12 HOURS ORAL 09/05/16 09:00 10/05/16 08:59 09/07/16 08:36 Clopidogrel Bisulfate (Plavix) 75 mg DAILY ORAL 09/05/16 09:00 10/05/16 08:59 09/07/16 08:32 Dextrose (Dextrose 50%) STAT PRN IV Hypoglycemia 09/05/16 06:30 10/05/16 06:29 Digoxin (Lanoxin) 0.125 mg DAILY ORAL 09/05/16 18:00 10/05/16 17:59 09/07/16 08:34 Enalapril Maleate (Vasotec) 2.5 mg EVERY 12 HOURS ORAL 09/05/16 18:00 10/05/16 17:59 Furosemide (Lasix) 40 mg DAILY IV 09/07/16 09:00 10/07/16 08:59 09/07/16 08:37 Insulin Aspart (NovoLOG) BEFORE MEALS AND HS SUBQ 09/05/16 11:30 10/05/16 11:29 09/07/16 17:18 Ondansetron HCl (Zofran) 4 mg Q6H PRN IVP Nausea & Vomiting 09/05/16 06:30 10/05/16 06:29 Piperacillin Sod/ Tazobactam Sod/ Sodium Chloride (Zosyn/Sodium Chloride) 110 ml @ 220 mls/hr EVERY 8 HOURS IVPB 09/06/16 14:30 09/13/16 14:29 09/07/16 14:44 Polyethylene Glycol (Miralax) 17 gm DAILYPRN PRN ORAL Constipation 09/05/16 06:30 10/05/16 06:29 Promethazine HCl/ Codeine 5 ml 5 ml Q4H PRN ORAL For Cough 09/06/16 14:00 10/06/16 13:59 Temazepam (Restoril) 15 mg HSPRN PRN ORAL Insomnia 09/05/16 06:30 09/12/16 06:29 Warfarin Sodium (Coumadin per pharmacy) 1 ea DAILY PRN MISC Per rx protocol 09/05/16 06:45 10/05/16 06:44 SHIMON WILLAMS Sep 07, 2016 18:18
--- NOTE | 2016-09-08 19:04 | Discharge Summary ---
Discharge Summary Hospital Course Date of Admission Sep 05, 2016 at 02:33 Date of Discharge Sep 07, 2016 at 18:15 Admitting Diagnosis congestive heart failure HPI Sai Yepez is a 55 year old male who was admitted on Sep 05, 2016 at 02:33 for Congestive Heart Failure Hospital Course [id number] Discharge Discharge Disposition Patient was discharged to Home (01) Discharge Diagnoses: Siobhan Sifuentes NP Sep 08, 2016 19:04
--- NOTE | 2016-09-09 02:16 | Discharge Summary 2 SIG ---
DATE OF ADMISSION: 09/05/2016 DATE OF DISCHARGE: 09/07/2016 POWER SUPPLY ENGINEER: Maxime Plata M.D. BRIEF HOSPITAL COURSE: The patient is a 55-year-old male with history of CHF and cardiomyopathy, presented to the ED complaining of difficulty breathing with leg swelling with gradual onset of symptoms. The patient reported compliance to his medications and has been having dry cough with no wheezing and no hemoptysis. He had a recent hospitalization for same symptoms and at that time, was found to have ejection fraction of 20% to 25% and was started on medical management for congestive heart failure. That time, troponin were elevated and was subsequently transferred to [facility] for angiogram and had a stent placed in. She presented to [facility] with worsening leg swelling and dificulty breathing. Work-up at ED showed chest x-ray with evidence of pulmonary edema. Creatinine was elevated. ProBNP was 5459. He was given O2 support and was started on IV Lasix and IV digoxin and was admitted to [facility] for further management. He was seen by Cardiology. EKG done showed sinus rhythm with evidence of left atrial enlargement and right ventricular hypertrophy. Echo showed severe depressed left ventricular function. He had a venous duplex of BLE that was negative for DVT. He was given Vasotec twice a day. He was given diuretics Lasix 40 mg b.i.d. He was started on anticoagulation for stroke prevention in light of recurrent atrial fibrillation and CHF. Explained to the patient the need to follow up with his instrument checker and advised risk of bleeding. He was discharged home and advised to follow up with PMD. FINAL DIAGNOSES: 1. Acute purulent bronchitis. 2. Paroxysmal atrial fibrillation. 3. Acute on chronic systolic congestive heart failure. 4. Coronary artery disease with prior stent. 5. Pulmonary hypertension. 6. Tricuspid regurgitation. 7. Mitral regurgitation, severe, on [facility] record. 8. History of intracardiac defibrillator placement. 9. Status post recent myocardial infarction. Cate George M.D. I have been assigned to dictate discharge summary on this account and I was not involved in the patient's management. Siobhan Sifuentes N.P. DR: Declan JOB#: [id number] CC: BLAINE
== END 2016-09-07 18:15 | disposition home or self-care (01) | DRG 194 ==
LOC: EMR 01:53 → 2W 02:33 → EDBD 02:33 → EDBEDREQ 07:02 → 2E 15:43
DX: I50.23 Acute on chronic systolic (congestive) heart failure (principal); I27.2 Other secondary pulmonary hypertension; I08.1 Rheumatic disorders of both mitral and tricuspid valves; E83.42 Hypomagnesemia; I42.0 Dilated cardiomyopathy; I51.3 Intracardiac thrombosis, not elsewhere classified; I48.0 Paroxysmal atrial fibrillation; Z95.810 Presence of automatic (implantable) cardiac defibrillator; Z95.5 Presence of coronary angioplasty implant and graft; I25.2 Old myocardial infarction; E11.9 Type 2 diabetes mellitus without complications; J20.9 Acute bronchitis, unspecified; I25.10 Atherosclerotic heart disease of native coronary artery without angina pectoris
CPT/HCPCS: 36415; 71010; 80048; 80053; 80069; 80162; 82248; 82962; 83735; 83880; 84100; 84484; 85025; 85610; 85730; 87070; 87081; 87205; 93005; 93970; 94640; 94664; 94760; J1815; J7620

== ENCOUNTER 2017-02-15 09:54 | Inpatient (IN) | payer OTHER ==
[~2017-02-15] VITALS: Ht 175.3 cm; Wt 80.7 kg
[~2017-02-15 09:54] MED LIST changes: +CLOPIDOGREL75 MG ORAL; +DIGOXIN125 MCG ORAL; +FENOFIBRATE67 MG ORAL; +METOPROLOL SUCC25 MG ORAL; +PACERONE200 MG ORAL; +SPIRONOLACTONE1 EACH ORAL
[2017-02-15] MEDS ORDERED: XARELTO10 MG ORAL (10:04)
[2017-02-15 10:25] VITALS: BP 99/74
--- NOTE | 2017-02-15 10:40 | Emergency Room Report ---
History of Present Illness General Chief Complaint: General Complaint Source: Patient Present Illness HPI 56-year-old male presents ED for evaluation. Patient states he has increased leg swelling for the last 3 weeks. Patient has history of CHF. Patient states his water pill is not working. Denies chest pain or shortness of breath. Also notes lower abdominal swelling as well. Denies fevers or chills. Denies cough. No other aggravating or relieving factors. Denies any other associated symptoms Allergies: Coded Allergies: No Known Allergies (Unverified , 08/10/16) Patient History Past Medical History: DM, HTN, asthma, COPD Past Surgical History: pacemaker Pertinent Family History: none Social History: Denies: smoking, alcohol use, drug use Immunizations: UTD Reviewed Nursing Documentation: PMH: Agreed, PSxH: Agreed Nursing Documentation-PMH Hx Cardiac Problems: Yes - HF, stent, pacemaker Hx Hypertension: Yes Hx Pacemaker: Yes - 2008 Hx Asthma: Yes Hx COPD: Yes Hx Diabetes: Yes Hx Cancer: No Hx Gastrointestinal Problems: No Hx Dialysis: No Hx Neurological Problems: No Hx Cerebrovascular Accident: Yes Hx Transient Ischemic Attacks: No Hx Dementia: No Hx Alzheimer's Disease: No Hx Parkinson's Disease: No Hx Meningitis: No Hx Encephalitis: No Hx Epilepsy: No Hx Multiple Sclerosis: No Hx Cerebral Palsy: No Hx Amyotrophic Lat Sclerosis: No Hx Guillian-Decker Syndrome: No Hx Paralysis: No Hx Peripheral Neuropathy: No Hx Spinal Cord Injury: No Hx Head Trauma: No Hx Traumatic Brain Injury: No Hx Memory Loss: No Hx Concentration Difficulty: No Hx Speech Problem: No Hx Tremors: No Hx Vertigo: No Hx Dizziness: No Hx Syncope: No Hx Headaches: No Hx Aphasia: No Hx Dysphasia: No Hx Numbness: No Hx Weakness: No Hx Fatigue: No Hx Neurologic Surgery: No Hx Brain Shunt: No Review of Systems All Other Systems: negative except mentioned in HPI Physical Exam Vital Signs Date Time Temp Pulse Resp B/P (MAP) Pulse Ox O2 Delivery O2 Flow Rate FiO2 02/15/17 09:59 97.0 98 20 108/76 96 Room Air Sp02 EP Interpretation: reviewed, normal General Appearance: no apparent distress, alert, GCS 15, non-toxic Head: normocephalic, atraumatic Eyes: bilateral eye normal inspection, bilateral eye PERRL ENT: hearing grossly normal, normal pharynx, no angioedema, normal voice Neck: full range of motion, supple/symm/no masses Respiratory: chest non-tender, lungs clear, normal breath sounds, speaking full sentences Cardiovascular #1: regular rate, rhythm, no edema Cardiovascular #2: 2+ carotid (R), 2+ carotid (L), 2+ radial (R), 2+ radial (L) , 2+ dorsalis pedis (R), 2+ dorsalis pedis (L) Gastrointestinal: normal bowel sounds, non tender, soft, non-distended, no guarding, no rebound Rectal: deferred Genitourinary: normal inspection, no CVA tenderness Musculoskeletal: back normal, gait/station normal, normal range of motion, non- tender, swelling - 2+ Neurologic: alert, oriented x3, responsive, motor strength/tone normal, sensory intact, speech normal Psychiatric: judgement/insight normal, memory normal, mood/affect normal, no suicidal/homicidal ideation Reflexes: 3+ bicep (R), 3+ bicep (L), 3+ tricep (R), 3+ tricep (L), 3+ knee (R) , 3+ knee (L) Skin: normal color, no rash, warm/dry, well hydrated Lymphatic: no adenopathy Medical Decision Making Diagnostic Impression: Primary Impression: CHF exacerbation Qualified Codes: I50.9 - Heart failure, unspecified ER Course Hospital Course 56 yo F presents to ED c/o SOB, leg swelling Differential diagnoses include: HI/unstable angina, contusion, muscle strain, PTX, rib fracture Clinical course Patient placed on stretcher. 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 After initial history and physical I ordered labs, EKG, chest x-ray labs reviewed- no leukocytosis, hemoglobin/hematocrit stable, electrolytes ok, troponins negative, BNP greater than 5000 EKG - afib, no acute ischemic changes interpreted by me Chest x-ray- pulmonary congestion Lasix given. Case discussed with Dr. George and he agreed to accept the patient to his service for further care and support I. I feel this is a highly complex case requiring extensive working including EKG/Rhythm strip, Xray/CT/US, Blood/urine lab work, repeat exams while in ED, and administration of strong opiates/narcotics for pain control, admission to hospital or close patient follow up. Diagnosis - CHF exacerbation admitted to telemetry in serious condition Labs Test 02/15/17 10:20 White Blood Count 8.2 K/UL (4.8-10.8) Red Blood Count 4.98 M/UL (4.70-6.10) Hemoglobin 12.3 G/DL (14.2-18.0) Hematocrit 39.8 % (42.0-52.0) Mean Corpuscular Volume 80 FL (80-99) Mean Corpuscular Hemoglobin 24.6 PG (27.0-31.0) Mean Corpuscular Hemoglobin Concent 30.9 G/DL (32.0-36.0) Red Cell Distribution Width 18.2 % (11.6-14.8) Platelet Count 283 K/UL (150-450) Mean Platelet Volume 6.7 FL (6.5-10.1) Neutrophils (%) (Auto) 70.1 % (45.0-75.0) Lymphocytes (%) (Auto) 19.1 % (20.0-45.0) Monocytes (%) (Auto) 9.5 % (1.0-10.0) Eosinophils (%) (Auto) 0.3 % (0.0-3.0) Basophils (%) (Auto) 1.0 % (0.0-2.0) Prothrombin Time 15.4 SEC (9.30-11.50) Prothromb Time International Ratio 1.5 (0.9-1.1) Activated Partial Thromboplast Time 27 SEC (23-33) Sodium Level 143 MMOL/L (136-145) Potassium Level 3.5 MMOL/L (3.5-5.1) Chloride Level 105 MMOL/L (98-107) Carbon Dioxide Level 29 MMOL/L (21-32) Anion Gap 9 mmol/L (5-15) Blood Urea Nitrogen 16 mg/dL (7-18) Creatinine 1.2 MG/DL (0.55-1.30) Estimat Glomerular Filtration Rate > 60 mL/min (>60) Glucose Level 158 MG/DL (74-106) Calcium Level 8.6 MG/DL (8.5-10.1) Total Bilirubin 4.2 MG/DL (0.2-1.0) Direct Bilirubin 3.4 MG/DL (0.0-0.3) Aspartate Amino Transf (AST/SGOT) 29 U/L (15-37) Alanine Aminotransferase (ALT/SGPT) 34 U/L (12-78) Alkaline Phosphatase 110 U/L (46-116) Total Creatine Kinase 72 U/L (26-308) Creatine Kinase MB 1.7 NG/ML (0.0-3.6) Creatine Kinase MB Relative Index 2.3 Troponin I 0.018 ng/mL (0.000-0.056) Pro-B-Type Natriuretic Peptide 5720 pg/mL (0-125) Total Protein 7.3 G/DL (6.4-8.2) Albumin 3.1 G/DL (3.4-5.0) Globulin 4.2 g/dL Albumin/Globulin Ratio 0.7 (1.0-2.7) Digoxin Level 0.8 NG/ML (0.5-2.0) Hematology Test 02/15/17 10:20 White Blood Count 8.2 K/UL (4.8-10.8) Red Blood Count 4.98 M/UL (4.70-6.10) Hemoglobin 12.3 G/DL (14.2-18.0) L Hematocrit 39.8 % (42.0-52.0) L Mean Corpuscular Volume 80 FL (80-99) Mean Corpuscular Hemoglobin 24.6 PG (27.0-31.0) L Mean Corpuscular Hemoglobin Concent 30.9 G/DL (32.0-36.0) L Red Cell Distribution Width 18.2 % (11.6-14.8) H Platelet Count 283 K/UL (150-450) Mean Platelet Volume 6.7 FL (6.5-10.1) Neutrophils (%) (Auto) 70.1 % (45.0-75.0) Lymphocytes (%) (Auto) 19.1 % (20.0-45.0) L Monocytes (%) (Auto) 9.5 % (1.0-10.0) Eosinophils (%) (Auto) 0.3 % (0.0-3.0) Basophils (%) (Auto) 1.0 % (0.0-2.0) Coagulation Test 02/15/17 10:20 Prothrombin Time 15.4 SEC (9.30-11.50) H Prothromb Time International Ratio 1.5 (0.9-1.1) H Activated Partial Thromboplast Time 27 SEC (23-33) Chemistry Test 02/15/17 10:20 Sodium Level 143 MMOL/L (136-145) Potassium Level 3.5 MMOL/L (3.5-5.1) Chloride Level 105 MMOL/L (98-107) Carbon Dioxide Level 29 MMOL/L (21-32) Anion Gap 9 mmol/L (5-15) Blood Urea Nitrogen 16 mg/dL (7-18) Creatinine 1.2 MG/DL (0.55-1.30) Estimat Glomerular Filtration Rate > 60 mL/min (>60) Glucose Level 158 MG/DL (74-106) H Calcium Level 8.6 MG/DL (8.5-10.1) Total Bilirubin 4.2 MG/DL (0.2-1.0) H Direct Bilirubin 3.4 MG/DL (0.0-0.3) H Aspartate Amino Transf (AST/SGOT) 29 U/L (15-37) Alanine Aminotransferase (ALT/SGPT) 34 U/L (12-78) Alkaline Phosphatase 110 U/L (46-116) Total Creatine Kinase 72 U/L (26-308) Creatine Kinase MB 1.7 NG/ML (0.0-3.6) Creatine Kinase MB Relative Index 2.3 Troponin I 0.018 ng/mL (0.000-0.056) Pro-B-Type Natriuretic Peptide 5720 pg/mL (0-125) H Total Protein 7.3 G/DL (6.4-8.2) Albumin 3.1 G/DL (3.4-5.0) L Globulin 4.2 g/dL Albumin/Globulin Ratio 0.7 (1.0-2.7) L EKG Diagnostic Results Rate: normal Rhythm: other - afib ST Segments: no acute changes ASA given to the pt in ED: No Rhythm Strip Diag. Results EP Interpretation: yes Rhythm: no PVC's, no ectopy Chest X-Ray Diagnostic Results Chest X-Ray Diagnostic Results : Chest X-Ray Ordered: Yes # of Views/Limited/Complete: 1 View Indication: Shortness of Breath EP Interpretation: Yes Interpretation: no pneumothorax, no acute cardiopulmonary disease, other - bilateral effusions Impression: Other - edema vs effusion Electronically Signed by: Electronically signed by Migel Fajardo MD Last Vital Signs Date Time Temp Pulse Resp B/P (MAP) Pulse Ox O2 Delivery O2 Flow Rate FiO2 02/15/17 10:25 97.0 89 20 99/74 96 Room Air Status: improved Disposition: ADMITTED INPATIENT Condition: Serious Referrals: Wil TENORIO,REFERRING (PCP) MIGEL FAJARDO M.D. Feb 15, 2017 10:40
[2017-02-15 10:43] LABS: EOSINOPHILS % (AUTO) 0.3 % (0.0-3.0); LYMPHOCYTES % (AUTO) 19.1 % (20.0-45.0); MEAN CORPUSCULAR HEMOGLOBIN 24.6 PG (27.0-31.0); MEAN CORPUSCULAR HGB CONC 30.9 G/DL (32.0-36.0); MEAN CORPUSCULAR VOLUME 80 FL (80-99); MEAN PLATELET VOLUME 6.7 FL (6.5-10.1); MONOCYTES % (AUTO) 9.5 % (1.0-10.0); NEUTROPHILS % (AUTO) 70.1 % (45.0-75.0); PLATELET COUNT 283 K/UL (150-450); RED BLOOD COUNT 4.98 M/UL (4.70-6.10); RED CELL DISTRIBUTION WIDTH 18.2 % (11.6-14.8); WHITE BLOOD COUNT 8.2 K/UL (4.8-10.8)
[2017-02-15 10:49] LABS: INR 1.5 (0.9-1.1); PROTHROMBIN TIME 15.4 SEC (9.30-11.50)
[2017-02-15 10:59] LABS: ANION GAP 9 mmol/L (5-15); CALCIUM 8.6 MG/DL (8.5-10.1); CARBON DIOXIDE 29 MMOL/L (21-32); CHLORIDE 105 MMOL/L (98-107); CREATININE 1.2 MG/DL (0.55-1.30); GLOMERULAR FILTRATION RATE > 60 mL/min (>60); POTASSIUM 3.5 MMOL/L (3.5-5.1); SODIUM 143 MMOL/L (136-145)
[2017-02-15 11:11] LABS: ALANINE AMINOTRANSFERASE 34 U/L (12-78); ALBUMIN/GLOBULIN RATIO 0.7 (1.0-2.7); ASPARTATE AMINO TRANSFERASE 29 U/L (15-37); CKMB 1.7 NG/ML (0.0-3.6); TOTAL PROTEIN 7.3 G/DL (6.4-8.2)
[2017-02-15 11:13] LABS: BILIRUBIN,DIRECT 3.4 MG/DL (0.0-0.3)
[2017-02-15 11:49] VITALS: BP 107/85
--- NOTE | 2017-02-15 11:51 | Diagnostic Imaging Report ---
Indication: SOB, cough Technique: One view of the chest Comparison: 09/07/2016 Findings: The heart is enlarged. Hazy parenchymal opacity is seen in the right lung base. There is slight bilateral costophrenic angle blunting, likely indicating a small amount of pleural fluid bilaterally. There may be some consolidation in the retrocardiac region. There is a left chest AICD again demonstrated Impression: Cardiomegaly Bilateral basilar hazy infiltrates versus edema Suspect small bilateral pleural effusions
[2017-02-15] MEDS ORDERED: Sodium Chloride 500ML 500 ML IVPB ONE (12:15)
[2017-02-15] MEDS ORDERED: Albuterol/Ipratropium 3ml neb HHN PRN (14:30)
[2017-02-15] MEDS ORDERED: Miralax 17gm pkt ORAL PRN (14:30)
[2017-02-15 15:40] VITALS: BP 109/90
[2017-02-15] MEDS: NovoLOG Insulin Flexpen SUBQ SCH ×2 (16:57→21:00)
[2017-02-15 17:33] VITALS: BP 119/78
[2017-02-15 20:00] VITALS: BP 115/68
[2017-02-15] MEDS: Amiodarone 200mg tab ORAL SCH (21:00)
[2017-02-15] MEDS: Carvedilol 25mg Tab ORAL SCH (21:14)
[2017-02-15] MEDS: Heparin 5000 units/ml inj SUBQ SCH (21:16)
[2017-02-16] VITALS: BP 108/71
[2017-02-16] MEDS: NovoLOG Insulin Flexpen SUBQ SCH ×4 (06:30→20:56)
[2017-02-16 08:00] VITALS: BP 97/68
[2017-02-16] MEDS: Carvedilol 25mg Tab ORAL SCH ×2 (08:18→20:55)
[2017-02-16] MEDS: Digoxin 0.125mg tab ORAL SCH (08:29)
[2017-02-16] MEDS: Amiodarone 200mg tab ORAL SCH ×2 (08:29→20:55)
[2017-02-16] MEDS: Aspirin EC 81mg tab ORAL SCH (08:29)
[2017-02-16] MEDS: Heparin 5000 units/ml inj SUBQ SCH ×2 (08:31→20:56)
[2017-02-16 10:09] LABS: ANION GAP 12 mmol/L (5-15); CALCIUM 8.3 MG/DL (8.5-10.1); CARBON DIOXIDE 24 MMOL/L (21-32); CHLORIDE 104 MMOL/L (98-107); CREATININE 1.2 MG/DL (0.55-1.30); GLOMERULAR FILTRATION RATE > 60 mL/min (>60); POTASSIUM 4.2 MMOL/L (3.5-5.1); SODIUM 140 MMOL/L (136-145)
--- NOTE | 2017-02-16 10:55 | Diagnostic Imaging Report ---
Indication: DYSPNEA Technique: One view of the chest Comparison: 02/15/2017 Findings: Bilateral hazy infiltrates are stable or perhaps slightly improved. Slight blunting of the bilateral costophrenic sulci likely reflects small bilateral pleural effusions. The heart remains enlarged. Left chest AICD remains. Impression: Stable or minimally improved bilateral infiltrates versus edema, over one day Other stable findings as described
[2017-02-16 12:00] VITALS: BP 130/70
--- NOTE | 2017-02-16 14:53 | History and Physical ---
History of Present Illness General Date patient seen: Feb 15, 2017 Reason for Hospitalization: General Complaint Present Illness HPI 56-year-old male with PMHx of endstage diastolic heart disease presents ED for evaluation of increased leg swelling for the last 3 weeks. Patient states his water pill is not working. Denies chest pain or shortness of breath. Also notes lower abdominal swelling as well. Denies fevers or chills. Denies cough. No other aggravating or relieving factors. Pt is admitted for acute decompensation of underlying chronic CHF. Allergies: Coded Allergies: No Known Allergies (Unverified , 08/10/16) Medication History Scheduled Amiodarone Hcl* (Pacerone*), 200 MG ORAL EVERY 12 HOURS Aspirin* (Aspir 81*), 81 MG ORAL DAILY, (Reported) Aspirin* (Aspir 81*), 81 MG ORAL DAILY, (Reported) Atorvastatin Calcium* (Atorvastatin Calcium*), 80 MG ORAL BEDTIME, (Reported) Benazepril Hcl* (Benazepril Hcl*), 20 MG ORAL EVERY 12 HOURS, (Reported) Carvedilol* (Carvedilol*), 25 MG ORAL EVERY 12 HOURS, (Reported) Carvedilol* (Carvedilol*), 25 MG ORAL EVERY 12 HOURS, (Reported) Clopidogrel* (Clopidogrel*), 75 MG ORAL DAILY, (Reported) Digoxin* (Digoxin*), 125 MCG ORAL DAILY, (Reported) Fenofibrate,Micronized (Fenofibrate), 67 MG ORAL DAILY, (Reported) Furosemide* (Lasix*), 40 MG ORAL DAILY Metformin Hcl* (Metformin Hcl*), 1,000 ORAL TWICE A DAY, (Reported) Metoprolol Succinate* (Metoprolol Succinate*), 25 MG ORAL DAILY, (Reported) Rivaroxaban (Xarelto*), 20 MG ORAL DAILY, (Reported) Spironolact/Hydrochlorothiazid (Spironolactone-Hctz 25-25 Tab), 1 TAB ORAL DAILY , (Reported) Warfarin Sod (Coumadin*), 7.5 MG ORAL COUMADIN Miscellaneous Medications Heparin Sod/Dextrose* (Heparin-D5w 25,000 Unit/500 Ml*), 25,000 UNIT IV, ( Reported) Patient History Healthcare decision maker Resuscitation status Full Code Advanced Directive on File Past Medical/Surgical History Past Medical/Surgical History: (1) Atrial flutter (2) Ventricular mural thrombus (3) ICD (implantable cardioverter-defibrillator) in place Review of Systems Constitutional: Reports: no symptoms Eye: Reports: no symptoms ENT: Reports: no symptoms Physical Exam General Appearance: cachetic Lines, tubes and drains: peripheral HEENT: normocephalic, atraumatic Respiratory/Chest: chest wall non-tender, lungs clear Breasts: no masses Cardiovascular/Chest: normal peripheral pulses Abdomen: normal bowel sounds Genitourinary/Rectal: normal genital exam, heme negative stool Extremities: normal range of motion Last 24 Hour Vital Signs Date Time Temp Pulse Resp B/P (MAP) Pulse Ox O2 Delivery O2 Flow Rate FiO2 02/16/17 12:00 96.8 82 18 130/70 96 Nasal Cannula 2.0 02/16/17 08:29 93 02/16/17 08:18 93 97/68 02/16/17 08:00 97.2 93 20 97/68 99 Nasal Cannula 2.0 02/16/17 08:00 97 02/16/17 07:46 Nasal Cannula 2.0 28 02/16/17 07:46 98 Nasal Cannula 2.0 28 02/16/17 07:45 85 20 Nasal Cannula 2.0 28 02/16/17 03:52 81 02/16/17 00:01 79 02/16/17 00:00 97.0 81 18 108/71 98 Nasal Cannula 4.0 02/15/17 21:14 94 119/78 02/15/17 20:02 93 02/15/17 20:00 97.3 87 18 115/68 98 Nasal Cannula 4.0 02/15/17 19:43 96 Nasal Cannula 4.0 36 02/15/17 19:43 Nasal Cannula 4.0 36 02/15/17 19:42 94 22 Nasal Cannula 4.0 36 02/15/17 17:33 97.0 90 24 119/78 96 Nasal Cannula 4.0 02/15/17 15:48 97.0 66 23 109/90 97 Nasal Cannula 2.0 02/15/17 15:40 66 23 109/90 97 Nasal Cannula 2.0 Laboratory Tests Test 02/15/17 18:30 02/16/17 09:00 02/16/17 09:25 Troponin I 0.013 ng/mL (0.000-0.056) 0.021 ng/mL (0.000-0.056) Sodium Level 140 MMOL/L (136-145) Potassium Level 4.2 MMOL/L (3.5-5.1) Chloride Level 104 MMOL/L (98-107) Carbon Dioxide Level 24 MMOL/L (21-32) Anion Gap 12 mmol/L (5-15) Blood Urea Nitrogen 20 mg/dL (7-18) H Creatinine 1.2 MG/DL (0.55-1.30) Estimat Glomerular Filtration Rate > 60 mL/min (>60) Glucose Level 183 MG/DL (74-106) H Calcium Level 8.3 MG/DL (8.5-10.1) L Microbiology Date/Time Source Procedure Growth Status 02/16/17 10:00 Sputum Gram Stain - Final Resulted 02/16/17 10:00 Sputum Sputum Culture Pending Resulted Height (Feet): 5 Height (Inches): 9.00 Weight (Pounds): 170 Medications Current Medications Medications (Trade) Dose Ordered Sig/Ana Route PRN Reason Start Time Stop Time Status Last Admin Dose Admin Acetaminophen (Tylenol) 650 mg Q4H PRN ORAL Fever 02/15/17 14:30 03/17/17 14:29 Albuterol/ Ipratropium (Albuterol/ Ipratropium) 3 ml Q4H PRN HHN Shortness of Breath 02/15/17 14:30 02/20/17 14:29 Amiodarone HCl (Cordarone) 200 mg EVERY 12 HOURS ORAL 02/15/17 21:00 03/17/17 20:59 02/16/17 08:29 Aspirin (Ecotrin) 81 mg DAILY ORAL 02/16/17 09:00 03/18/17 08:59 02/16/17 08:29 Carvedilol (Coreg) 25 mg EVERY 12 HOURS ORAL 02/15/17 21:00 03/17/17 20:59 02/15/17 21:14 Clopidogrel Bisulfate (Plavix) 75 mg DAILY ORAL 02/16/17 09:00 03/18/17 08:59 02/16/17 08:29 Dextrose (Dextrose 50%) STAT PRN IV Hypoglycemia 02/15/17 14:30 03/17/17 14:29 Digoxin (Lanoxin) 0.125 mg DAILY ORAL 02/16/17 09:00 03/18/17 08:59 02/16/17 08:29 Furosemide (Lasix) 40 mg EVERY 8 HOURS IV 02/15/17 22:00 03/17/17 21:59 02/16/17 13:50 Heparin Sodium (Porcine) (Heparin 5000 units/ml) 5,000 units EVERY 12 HOURS SUBQ 02/15/17 21:00 03/17/17 20:59 02/16/17 08:31 Insulin Aspart (NovoLOG) BEFORE MEALS AND HS SUBQ 02/15/17 16:30 03/17/17 16:29 02/16/17 11:57 Ondansetron HCl (Zofran) 4 mg Q6H PRN IVP Nausea & Vomiting 02/15/17 14:30 03/17/17 14:29 Polyethylene Glycol (Miralax) 17 gm DAILYPRN PRN ORAL Constipation 02/15/17 14:30 03/17/17 14:29 Potassium Chloride (K-Dur) 40 meq QPM ORAL 02/15/17 16:30 03/17/17 16:29 02/15/17 16:41 Temazepam (Restoril) 15 mg HSPRN PRN ORAL Insomnia 02/15/17 14:30 02/22/17 14:29 Assessment/Plan Problem List: (1) CHF exacerbation ICD Codes: I50.9 - Heart failure, unspecified SNOMED: 00210369 Qualifiers: Qualified Codes: I50.9 - Heart failure, unspecified (2) Atrial flutter ICD Codes: I48.92 - Unspecified atrial flutter SNOMED: 5702031 (3) ICD (implantable cardioverter-defibrillator) in place ICD Codes: Z95.810 - Presence of automatic (implantable) cardiac defibrillator SNOMED: 159839960, 394847495 Assessment/Plan diuretics check electrolytes cardiology to see. SHIMON WILLAMS Feb 16, 2017 14:53
--- NOTE | 2017-02-16 14:55 | Pulmonology Progress Note ---
Assessment/Plan Problems: (1) CHF exacerbation (2) Atrial flutter (3) ICD (implantable cardioverter-defibrillator) in place Assessment/Plan continue lasix cxr slightly better cardio to see. Subjective Interval Events: slightly better, still visibly short of breath Allergies: Coded Allergies: No Known Allergies (Unverified , 08/10/16) Objective Last 24 Hour Vital Signs Date Time Temp Pulse Resp B/P (MAP) Pulse Ox O2 Delivery O2 Flow Rate FiO2 02/16/17 12:00 96.8 82 18 130/70 96 Nasal Cannula 2.0 02/16/17 08:29 93 02/16/17 08:18 93 97/68 02/16/17 08:00 97.2 93 20 97/68 99 Nasal Cannula 2.0 02/16/17 08:00 97 02/16/17 07:46 Nasal Cannula 2.0 28 02/16/17 07:46 98 Nasal Cannula 2.0 28 02/16/17 07:45 85 20 Nasal Cannula 2.0 28 02/16/17 03:52 81 02/16/17 00:01 79 02/16/17 00:00 97.0 81 18 108/71 98 Nasal Cannula 4.0 02/15/17 21:14 94 119/78 02/15/17 20:02 93 02/15/17 20:00 97.3 87 18 115/68 98 Nasal Cannula 4.0 02/15/17 19:43 96 Nasal Cannula 4.0 36 02/15/17 19:43 Nasal Cannula 4.0 36 02/15/17 19:42 94 22 Nasal Cannula 4.0 36 02/15/17 17:33 97.0 90 24 119/78 96 Nasal Cannula 4.0 02/15/17 15:48 97.0 66 23 109/90 97 Nasal Cannula 2.0 02/15/17 15:40 66 23 109/90 97 Nasal Cannula 2.0 General Appearance: WD/WN HEENT: normocephalic, atraumatic Respiratory/Chest: chest wall non-tender, lungs clear Cardiovascular: normal peripheral pulses, normal rate Abdomen: normal bowel sounds, soft, non tender Genitourinary: normal external genitalia Extremities: no clubbing Skin: no lesions Neurologic/Psychiatric: stuffer II-XII grossly normal Lymphatic: no neck adenopathy Microbiology Date/Time Source Procedure Growth Status 02/16/17 10:00 Sputum Gram Stain - Final Resulted 02/16/17 10:00 Sputum Sputum Culture Pending Resulted Laboratory Tests 02/15/17 18:30: Troponin I 0.013 02/16/17 09:00: Troponin I 0.021 02/16/17 09:25: Sodium Level 140, Potassium Level 4.2, Chloride Level 104, Carbon Dioxide Level 24, Anion Gap 12, Blood Urea Nitrogen 20H, Creatinine 1.2, Estimat Glomerular Filtration Rate > 60, Glucose Level 183H, Calcium Level 8.3L Current Medications Medications (Trade) Dose Ordered Sig/Ana Route PRN Reason Start Time Stop Time Status Last Admin Dose Admin Acetaminophen (Tylenol) 650 mg Q4H PRN ORAL Fever 02/15/17 14:30 03/17/17 14:29 Albuterol/ Ipratropium (Albuterol/ Ipratropium) 3 ml Q4H PRN HHN Shortness of Breath 02/15/17 14:30 02/20/17 14:29 Amiodarone HCl (Cordarone) 200 mg EVERY 12 HOURS ORAL 02/15/17 21:00 03/17/17 20:59 02/16/17 08:29 Aspirin (Ecotrin) 81 mg DAILY ORAL 02/16/17 09:00 03/18/17 08:59 02/16/17 08:29 Carvedilol (Coreg) 25 mg EVERY 12 HOURS ORAL 02/15/17 21:00 03/17/17 20:59 02/15/17 21:14 Clopidogrel Bisulfate (Plavix) 75 mg DAILY ORAL 02/16/17 09:00 03/18/17 08:59 02/16/17 08:29 Dextrose (Dextrose 50%) STAT PRN IV Hypoglycemia 02/15/17 14:30 03/17/17 14:29 Digoxin (Lanoxin) 0.125 mg DAILY ORAL 02/16/17 09:00 03/18/17 08:59 02/16/17 08:29 Furosemide (Lasix) 40 mg EVERY 8 HOURS IV 02/15/17 22:00 03/17/17 21:59 02/16/17 13:50 Heparin Sodium (Porcine) (Heparin 5000 units/ml) 5,000 units EVERY 12 HOURS SUBQ 02/15/17 21:00 03/17/17 20:59 02/16/17 08:31 Insulin Aspart (NovoLOG) BEFORE MEALS AND HS SUBQ 02/15/17 16:30 03/17/17 16:29 02/16/17 11:57 Ondansetron HCl (Zofran) 4 mg Q6H PRN IVP Nausea & Vomiting 02/15/17 14:30 03/17/17 14:29 Polyethylene Glycol (Miralax) 17 gm DAILYPRN PRN ORAL Constipation 02/15/17 14:30 03/17/17 14:29 Potassium Chloride (K-Dur) 40 meq QPM ORAL 02/15/17 16:30 03/17/17 16:29 02/15/17 16:41 Temazepam (Restoril) 15 mg HSPRN PRN ORAL Insomnia 02/15/17 14:30 02/22/17 14:29 SHIMON WILLAMS Feb 16, 2017 14:55
[2017-02-16 15:58] VITALS: BP 130/73
--- NOTE | 2017-02-16 16:11 | Cardiology Report ---
APPROVED REPORT EXAM: Two-dimensional and M-mode echocardiogram with Doppler and color Doppler. INDICATION Left Ventricular Function M-Mode DIMENSIONS IVSd1.0 (0.7-1.1cm)Left Atrium (MM)7.7 (1.6-4.0cm) LVDd8.1 (3.5-5.6cm)Aortic Root3.3 (2.0-3.7cm) PWd0.8 (0.7-1.1cm)Aortic Cusp Exc.1.9 (1.5-2.0cm) LVDs6.7 (2.5-4.0cm) PWs1.3 cm Severe left ventricular enlargement. Severe global left ventricular hypokinesis. [place] to mid anterolateral and inferoseptum wall akinetic. Echogenic material noted in LV apex - can not exclude apical thrombus. Left ventricular ejection fraction estimated to be 15 %. No evidence of left ventricular hypertrophy. Anterior Echo-free space, may be due to pericardial fat or effusion. Severe left atrial enlargement. Moderate right atrial enlargement. Mild right ventricular enlargement. Mild focal aortic valve sclerosis with adequate cusp excursion. Mildly thickened mitral valve leaflets with normal excursion. Mild mitral annulus and aortic root calcification. Normal pulmonic valve structure. Normal tricuspid valve structure. IVC dilated at 1.9 cm collapsing with respiration suggestive of increased RA pressure. Pacemaker wire present in the right side chambers. A color flow and spectral Doppler study was performed and revealed: Trace aortic insufficiency. Severe mitral regurgitation. Mitral inflow indicate increased left atrial pressure, suggestive restrictive pattern (Grade III). Severe tricuspid regurgitation. Tricuspid systolic velocities suggests peak right ventricular systolic pressure of 93 mmHg, consistent with severe pulmonary hypertension. Mild to moderate pulmonary hypertension.
[2017-02-16 20:00] VITALS: BP 137/79
[2017-02-17] VITALS: BP 100/71
[2017-02-17] MEDS: NovoLOG Insulin Flexpen SUBQ SCH ×4 (06:20→22:44)
[2017-02-17 08:12] VITALS: BP 102/72
[2017-02-17] MEDS: Amiodarone 200mg tab ORAL SCH (08:27)
[2017-02-17] MEDS: Aspirin EC 81mg tab ORAL SCH (08:28)
[2017-02-17] MEDS: Carvedilol 25mg Tab ORAL SCH ×2 (08:28→22:40)
[2017-02-17] MEDS: Digoxin 0.125mg tab ORAL SCH (08:28)
[2017-02-17] MEDS: Heparin 5000 units/ml inj SUBQ SCH ×2 (08:29→22:43)
[2017-02-17 09:10] LABS: BASOPHILS % (AUTO) 1.1 % (0.0-2.0); EOSINOPHILS % (AUTO) 0.2 % (0.0-3.0); LYMPHOCYTES % (AUTO) 19.3 % (20.0-45.0); MEAN CORPUSCULAR HEMOGLOBIN 24.7 PG (27.0-31.0); MEAN CORPUSCULAR HGB CONC 31.9 G/DL (32.0-36.0); MEAN CORPUSCULAR VOLUME 77 FL (80-99); MEAN PLATELET VOLUME 6.5 FL (6.5-10.1); NEUTROPHILS % (AUTO) 67.3 % (45.0-75.0); PLATELET COUNT 293 K/UL (150-450); RED BLOOD COUNT 4.53 M/UL (4.70-6.10); RED CELL DISTRIBUTION WIDTH 17.8 % (11.6-14.8); WHITE BLOOD COUNT 8.3 K/UL (4.8-10.8)
[2017-02-17 09:29] LABS: ALANINE AMINOTRANSFERASE 122 U/L (12-78); ALBUMIN/GLOBULIN RATIO 0.9 (1.0-2.7); ANION GAP 6 mmol/L (5-15); ASPARTATE AMINO TRANSFERASE 210 U/L (15-37); CALCIUM 8.6 MG/DL (8.5-10.1); CARBON DIOXIDE 32 MMOL/L (21-32); CHLORIDE 104 MMOL/L (98-107); CREATININE 1.3 MG/DL (0.55-1.30); GLOMERULAR FILTRATION RATE > 60 mL/min (>60); POTASSIUM 4.1 MMOL/L (3.5-5.1); SODIUM 142 MMOL/L (136-145); TOTAL PROTEIN 6.1 G/DL (6.4-8.2)
[2017-02-17 09:32] LABS: BILIRUBIN,DIRECT 4.5 MG/DL (0.0-0.3)
[2017-02-17 11:18] VITALS: BP 94/58
--- NOTE | 2017-02-17 12:58 | Pulmonology Progress Note ---
Assessment/Plan Problems: (1) CHF exacerbation (2) Atrial flutter (3) ICD (implantable cardioverter-defibrillator) in place Assessment/Plan change lasix to drip 10 mg/hour cxr slightly better cardio to see. pt/ot Subjective ROS Limited/Unobtainable: No Constitutional: Reports: no symptoms HEENT: Repors: no symptoms Respiratory: Reports: no symptoms Allergies: Coded Allergies: No Known Allergies (Unverified , 08/10/16) Objective Last 24 Hour Vital Signs Date Time Temp Pulse Resp B/P (MAP) Pulse Ox O2 Delivery O2 Flow Rate FiO2 02/17/17 12:05 98 Room Air 21 02/17/17 12:05 Room Air 21 02/17/17 12:05 64 20 Room Air 21 02/17/17 11:18 97.3 79 20 94/58 100 Room Air 02/17/17 08:28 88 02/17/17 08:28 87 113/71 02/17/17 08:12 96.3 87 20 102/72 100 Nasal Cannula 4.0 02/17/17 08:00 102 02/17/17 03:46 96 02/17/17 00:00 97.0 79 21 100/71 100 Room Air 02/16/17 23:50 78 02/16/17 21:44 Nasal Cannula 2.0 28 02/16/17 21:44 97 Nasal Cannula 2.0 28 02/16/17 21:43 69 18 Nasal Cannula 2.0 28 02/16/17 20:55 71 137/79 02/16/17 20:00 98.2 69 21 137/79 94 Room Air 02/16/17 19:53 86 02/16/17 16:00 88 02/16/17 15:58 96.1 88 18 130/73 94 Intake and Output 02/17/17 02/18/17 19:00 07:00 Intake Total 250 ml Balance 250 ml Intake Oral 250 ml General Appearance: WD/WN HEENT: normocephalic, atraumatic Respiratory/Chest: chest wall non-tender, lungs clear Cardiovascular: normal peripheral pulses, normal rate Abdomen: normal bowel sounds, soft, non tender, non distended Genitourinary: normal external genitalia Extremities: no clubbing Skin: no rash Microbiology Date/Time Source Procedure Growth Status 02/16/17 10:00 Sputum Gram Stain - Final Resulted 02/16/17 10:00 Sputum Sputum Culture - Preliminary NORMAL UPPER RESPIRATORY DIMITRI AT 24 ... Resulted Laboratory Tests 02/17/17 08:15: White Blood Count 8.3, Red Blood Count 4.53L, Hemoglobin 11.2L, Hematocrit 35.1L , Mean Corpuscular Volume 77L, Mean Corpuscular Hemoglobin 24.7L, Mean Corpuscular Hemoglobin Concent 31.9L, Red Cell Distribution Width 17.8H, Platelet Count 293, Mean Platelet Volume 6.5, Neutrophils (%) (Auto) 67.3, Lymphocytes (%) (Auto) 19.3L, Monocytes (%) (Auto) 12.0H, Eosinophils (%) (Auto ) 0.2, Basophils (%) (Auto) 1.1, Sodium Level 142, Potassium Level 4.1, Chloride Level 104, Carbon Dioxide Level 32, Anion Gap 6, Blood Urea Nitrogen 25H, Creatinine 1.3, Estimat Glomerular Filtration Rate > 60, Glucose Level 173H , Calcium Level 8.6, Total Bilirubin 5.2H, Direct Bilirubin 4.5H, Aspartate Amino Transf (AST/SGOT) 210H, Alanine Aminotransferase (ALT/SGPT) 122H, Alkaline Phosphatase 116, Troponin I 0.023, Pro-B-Type Natriuretic Peptide 4696H , Total Protein 6.1L, Albumin 2.9L, Globulin 3.2, Albumin/Globulin Ratio 0.9L Current Medications Medications (Trade) Dose Ordered Sig/Ana Route PRN Reason Start Time Stop Time Status Last Admin Dose Admin Acetaminophen (Tylenol) 650 mg Q4H PRN ORAL Fever 02/15/17 14:30 03/17/17 14:29 Albuterol/ Ipratropium (Albuterol/ Ipratropium) 3 ml Q4H PRN HHN Shortness of Breath 02/15/17 14:30 02/20/17 14:29 Amiodarone HCl (Cordarone) 200 mg EVERY 12 HOURS ORAL 02/15/17 21:00 03/17/17 20:59 02/17/17 08:27 Aspirin (Ecotrin) 81 mg DAILY ORAL 02/16/17 09:00 03/18/17 08:59 02/17/17 08:28 Carvedilol (Coreg) 25 mg EVERY 12 HOURS ORAL 02/15/17 21:00 03/17/17 20:59 02/17/17 08:28 Clopidogrel Bisulfate (Plavix) 75 mg DAILY ORAL 02/16/17 09:00 03/18/17 08:59 02/17/17 08:28 Dextrose (Dextrose 50%) STAT PRN IV Hypoglycemia 02/15/17 14:30 03/17/17 14:29 Digoxin (Lanoxin) 0.125 mg DAILY ORAL 02/16/17 09:00 03/18/17 08:59 02/17/17 08:28 Furosemide (Lasix) 40 mg EVERY 8 HOURS IV 02/15/17 22:00 03/17/17 21:59 02/17/17 06:19 Heparin Sodium (Porcine) (Heparin 5000 units/ml) 5,000 units EVERY 12 HOURS SUBQ 02/15/17 21:00 03/17/17 20:59 02/17/17 08:29 Insulin Aspart (NovoLOG) BEFORE MEALS AND HS SUBQ 02/15/17 16:30 03/17/17 16:29 02/17/17 12:18 Ondansetron HCl (Zofran) 4 mg Q6H PRN IVP Nausea & Vomiting 02/15/17 14:30 03/17/17 14:29 Polyethylene Glycol (Miralax) 17 gm DAILYPRN PRN ORAL Constipation 02/15/17 14:30 03/17/17 14:29 Potassium Chloride (K-Dur) 40 meq QPM ORAL 02/15/17 16:30 03/17/17 16:29 02/16/17 16:44 Temazepam (Restoril) 15 mg HSPRN PRN ORAL Insomnia 02/15/17 14:30 02/22/17 14:29 SHIMON WILLAMS Feb 17, 2017 12:58
[2017-02-17 16:00] VITALS: BP 98/73
--- NOTE | 2017-02-17 16:49 | Diagnostic Imaging Report ---
APPROVED REPORT CPT Code: 35829 Present Symptoms Lower Extremity Edema: Bilateral Shortness of breath Comments: Hx CHF, pacemaker. BILATERAL: Imaging reveals a patent deep venous system bilaterally. There is no evidence of thrombus within the femoral, popliteal or tibial segments. The greater saphenous veins are also within normal limits. Doppler indicates normal spontaneous flow within these segments.
--- NOTE | 2017-02-17 18:06 | Cardiology Progress Note ---
Assessment/Plan Assessment/Plan 1. Acute on chronic CHF 2. Status post percutaneous coronary intervention of the circumflex artery 2016 3. Cardiomyopathy. ejection fraction of 20% 4. History of intracardiac defibrillator placement. 5. abnormal LFTs 6. Mitral regurgitation severe 7. Pulmonary hypertension.worsend 8. Tricuspid regurgitation. 9. Paroxysmal atrial fibrillation. [id number] decrease amido due to abn lft xarelto not appropriate for lv thrombus in setting of afib resume Coumadin resume acei when bp allows Objective Last 24 Hour Vital Signs Date Time Temp Pulse Resp B/P (MAP) Pulse Ox O2 Delivery O2 Flow Rate FiO2 02/17/17 16:00 97.3 75 20 98/73 99 Room Air 02/17/17 16:00 81 02/17/17 12:05 98 Room Air 21 02/17/17 12:05 Room Air 21 02/17/17 12:05 64 20 Room Air 21 02/17/17 12:00 86 02/17/17 11:18 97.3 79 20 94/58 100 Room Air 02/17/17 08:28 88 02/17/17 08:28 87 113/71 02/17/17 08:12 96.3 87 20 102/72 100 Nasal Cannula 4.0 02/17/17 08:00 102 02/17/17 03:46 96 02/17/17 00:00 97.0 79 21 100/71 100 Room Air 02/16/17 23:50 78 02/16/17 21:44 Nasal Cannula 2.0 28 02/16/17 21:44 97 Nasal Cannula 2.0 28 02/16/17 21:43 69 18 Nasal Cannula 2.0 28 02/16/17 20:55 71 137/79 02/16/17 20:00 98.2 69 21 137/79 94 Room Air 02/16/17 19:53 86 Intake and Output 02/17/17 02/18/17 19:00 07:00 Intake Total 250 ml Balance 250 ml Intake Oral 250 ml Laboratory Tests Test 02/17/17 08:15 White Blood Count 8.3 K/UL (4.8-10.8) Red Blood Count 4.53 M/UL (4.70-6.10) L Hemoglobin 11.2 G/DL (14.2-18.0) L Hematocrit 35.1 % (42.0-52.0) L Mean Corpuscular Volume 77 FL (80-99) L Mean Corpuscular Hemoglobin 24.7 PG (27.0-31.0) L Mean Corpuscular Hemoglobin Concent 31.9 G/DL (32.0-36.0) L Red Cell Distribution Width 17.8 % (11.6-14.8) H Platelet Count 293 K/UL (150-450) Mean Platelet Volume 6.5 FL (6.5-10.1) Neutrophils (%) (Auto) 67.3 % (45.0-75.0) Lymphocytes (%) (Auto) 19.3 % (20.0-45.0) L Monocytes (%) (Auto) 12.0 % (1.0-10.0) H Eosinophils (%) (Auto) 0.2 % (0.0-3.0) Basophils (%) (Auto) 1.1 % (0.0-2.0) Sodium Level 142 MMOL/L (136-145) Potassium Level 4.1 MMOL/L (3.5-5.1) Chloride Level 104 MMOL/L (98-107) Carbon Dioxide Level 32 MMOL/L (21-32) Anion Gap 6 mmol/L (5-15) Blood Urea Nitrogen 25 mg/dL (7-18) H Creatinine 1.3 MG/DL (0.55-1.30) Estimat Glomerular Filtration Rate > 60 mL/min (>60) Glucose Level 173 MG/DL (74-106) H Calcium Level 8.6 MG/DL (8.5-10.1) Total Bilirubin 5.2 MG/DL (0.2-1.0) H Direct Bilirubin 4.5 MG/DL (0.0-0.3) H Aspartate Amino Transf (AST/SGOT) 210 U/L (15-37) H Alanine Aminotransferase (ALT/SGPT) 122 U/L (12-78) H Alkaline Phosphatase 116 U/L (46-116) Troponin I 0.023 ng/mL (0.000-0.056) Pro-B-Type Natriuretic Peptide 4696 pg/mL (0-125) H Total Protein 6.1 G/DL (6.4-8.2) L Albumin 2.9 G/DL (3.4-5.0) L Globulin 3.2 g/dL Albumin/Globulin Ratio 0.9 (1.0-2.7) L Microbiology Date/Time Source Procedure Growth Status 02/16/17 10:00 Sputum Gram Stain - Final Resulted 02/16/17 10:00 Sputum Sputum Culture - Preliminary NORMAL UPPER RESPIRATORY DIMITRI AT 24 ... Resulted AUBRIE TRIVEDI Feb 17, 2017 18:06
[2017-02-17 19:53] VITALS: BP 97/47
[2017-02-17] MEDS ORDERED: Warfarin Sodium 5mg ORAL ONE (21:30)
--- NOTE | 2017-02-17 22:00 | Consultation ---
DATE OF CONSULTATION: 02/17/2017 CARDIOLOGY CONSULTATION CONSULTING PHYSICIAN: Maxime Plata M.D. REFERRING PHYSICIAN: Cate George M.D. REASON FOR REFERRAL: Congestive heart failure. HISTORY OF PRESENT ILLNESS: This is a middle-aged gentleman, with multiple medical problems as well as congestive heart failure with significant cardiomyopathy. He presented to the hospital with two weeks of increasing shortness of breath. He states he was okay initially, but he started having swelling in the legs, shortness of breath, and swelling in his testicles. So, he finally presented to the hospital because he felt his water pill was not working. He really did not have any chest pain. He has got lower extremity swelling. He does have a cough initially productive of blood-tinged sputum that has improved. Shortness of breath is somewhat improved. He is supposed to have some kind of surgery at [facility] for resection of something in his lungs he states. PAST MEDICAL HISTORY: Positive for history of congestive heart failure, cardiomyopathy, and atrial fibrillation. He has had intracardiac defibrillator placement, possible left ventricular thrombus, history of diabetes mellitus, high blood pressure, history of myocardial infarction and stent placement, possible asthma, and remote history of peptic ulcer disease. He does have a history of renal insufficiency. He has had a stroke back in May 2016. ALLERGIES: None. SOCIAL HISTORY: One pack per day smoker, although he has cut down and does not drink alcoholic beverages. Denies any drug use. REVIEW OF SYSTEMS: GASTROINTESTINAL: No nausea, vomiting, or diarrhea. GENITOURINARY: Negative. PULMONARY: Positive for cough. CONSTITUTIONAL: Negative. PHYSICAL EXAMINATION: GENERAL: Physical examination shows him to be an elderly gentleman, in no respiratory distress. NECK: Supple. No jugular venous distention. LUNGS: Rhonchi as well as crackles noted bilaterally. CARDIAC: Irregular rate and rhythm. Holosystolic regurgitant murmur. No heaves or thrills noted. ABDOMEN: Soft and nontender. Positive bowel sounds. EXTREMITIES: There is no clubbing, cyanosis, nor is there any edema. NEUROLOGICAL: He is awake, alert, and responsive. LABORATORY AND DIAGNOSTIC DATA: White count of 8.3, hemoglobin 11.2, and platelet count of 293. His sodium is 142, potassium 4.1, chloride 104, bicarbonate 32, BUN is 25, creatinine 1.3, and glucose of 173. AST and ALT increased at 210 and 122 respectively, increased from his original admission at this time. His proBNP is 4600 down from 5700 at the time of admission, which is lower than his prior level of September of 5999. His troponins are all negative. He has had an echocardiogram that was performed in the past few days showing an ejection fraction of 15%, questionable left ventricular thrombus, severe left atrial enlargement, moderate right atrial enlargement. He has got a dilated IVC, severe mitral regurgitation, mitral inflow restrictive secondary to severe mitral regurgitation, pulmonary systolic pressure is 93. A chest x-ray performed shows bilateral hazy infiltrates stable or perhaps slightly improved. Slight blunting of the bilateral costophrenic sulci, small bilateral pleural effusions. The heart is enlarged. An AICD is in place. A venous duplex study of the lower extremities, no evidence of thrombus was noted. An electrocardiogram has been performed. It shows atrial fibrillation. Left ventricular response appears to be well controlled. Leftward axis with delay in R-wave progression suggestive of old anterior injury pattern. ASSESSMENT AND PLAN: 1. Acute systolic heart failure. 2. Permanent atrial fibrillation. 3. Questionable ventricular thrombus. 4. History of recent stroke. 5. History of intracardiac defibrillator placement. 6. History of prior stent. 7. Mitral regurgitation. 8. Pulmonary hypertension . 9. Tricuspid regurgitation. 10. Abnormal liver function tests. Dr. George, this patient was seen in cardiac consultation. He has had a coronary intervention of the circumflex artery back in August 2016. His ejection fraction previously in the 20s, now ranging approximately 10 to 15% after intracardiac defibrillator placement. He used to be back on single antiplatelet agent and anticoagulation because of his atrial fibrillation and possible anticoagulation with Coumadin as well. He has had dual antiplatelet therapy because of his stent that was placed back in August of 2016. His liver function tests are slightly abnormal and and may be related to some medications, although I am not sure about that. Since he has got abnormal liver function tests and he has got atrial fibrillation, consider discontinuation of amiodarone therapy. If liver function tests become worse, discontinuation of any other agents that may be causing his abnormal LFTs. Maxime Plata M.D. DR: Tg JOB#: [id number] CC:
[2017-02-18] VITALS: BP 100/51
[2017-02-18 04:00] VITALS: BP 103/68
[2017-02-18] MEDS: NovoLOG Insulin Flexpen SUBQ SCH ×4 (06:40→21:03)
[2017-02-18 08:00] VITALS: BP 95/64
[2017-02-18] MEDS: Carvedilol 25mg Tab ORAL SCH ×2 (09:00→21:00)
[2017-02-18] MEDS: Aspirin EC 81mg tab ORAL SCH (09:19)
[2017-02-18] MEDS: Amiodarone 200mg tab ORAL SCH (09:19)
[2017-02-18] MEDS: Digoxin 0.125mg tab ORAL SCH (09:20)
[2017-02-18] MEDS: Heparin 5000 units/ml inj SUBQ SCH ×2 (09:21→21:02)
--- NOTE | 2017-02-18 09:21 | Pulmonology Progress Note ---
Assessment/Plan Assessment/Plan ASSESSMENT Acute systolic CHF exacerbation A fib/flutter, permanent Left AICD questionable ventricular thrombus hx of recent CVA Hx of CAD with stent placement COPD DM severe pulmonary HTN MR and TR transaminitis PLAN OF CARE Tele Lasix gtt monitor I/O monitor renal parameters lytes, replace as needed Fup with CXR and pro BNP in am ECHO with EF 15% and RVSP of 93, c/w severe pulmonary HTN as well as evidence of severe MR and TR Medical management of CHF with BB, Digoxin ( level therapeutic), diuretic , low BP to add SHABNAM for now cardio eval appreciated A fib/flutter permanent; rate control with Amiodarone and BB, controlled, restarted on a/coagulation as per cardio -Coumadin, dose per pharmacy to reach therapeutic INR Amiodarone dose decreased due to elevated LFT trend LFT abdominal US O2 HHN prn BS management with SS of insulin DVT prophylaxis venous Duplex BLE PT eval and Rx case discussed and evaluated by supervising physician Subjective Allergies: Coded Allergies: No Known Allergies (Unverified , 08/10/16) Subjective + SOB no chest pain I/O with negative 2200 cc balance 02/17 Objective Last 24 Hour Vital Signs Date Time Temp Pulse Resp B/P (MAP) Pulse Ox O2 Delivery O2 Flow Rate FiO2 02/18/17 04:00 80 02/18/17 04:00 99.0 73 19 103/68 99 Nasal Cannula 4.0 02/18/17 00:00 98.4 73 20 100/51 100 Nasal Cannula 4.0 02/18/17 00:00 81 02/17/17 22:40 76 97/47 02/17/17 20:00 89 02/17/17 19:53 97.2 76 20 97/47 99 Nasal Cannula 2.0 02/17/17 19:19 Nasal Cannula 2.0 28 02/17/17 19:19 98 Nasal Cannula 2.0 28 02/17/17 19:19 82 20 Nasal Cannula 2.0 28 02/17/17 16:00 97.3 75 20 98/73 99 Room Air 02/17/17 16:00 81 02/17/17 12:05 98 Room Air 21 02/17/17 12:05 Room Air 21 02/17/17 12:05 64 20 Room Air 21 02/17/17 12:00 86 02/17/17 11:18 97.3 79 20 94/58 100 Room Air General Appearance: no acute distress, other - A/A/O x 3 AA male in NAD HEENT: normocephalic, atraumatic, anicteric Respiratory/Chest: chest wall non-tender, lungs clear, other - left chest AICD Cardiovascular: normal rate - A fib with V pacing , rate controlled , irregularly irregular Abdomen: normal bowel sounds, soft, non tender Genitourinary: other - scrotal edema Extremities: other - trace edema to +1 BLE Neurologic/Psychiatric: alert, oriented x 3, responsive, normal mood/affect Musculoskeletal: normal muscle bulk Microbiology Date/Time Source Procedure Growth Status 02/16/17 10:00 Sputum Gram Stain - Final Complete 02/16/17 10:00 Sputum Sputum Culture - Final NORMAL UPPER RESPIRATORY DIMITRI AT 48 ... Complete Current Medications Medications (Trade) Dose Ordered Sig/Ana Route PRN Reason Start Time Stop Time Status Last Admin Dose Admin Acetaminophen (Tylenol) 650 mg Q4H PRN ORAL Fever 02/15/17 14:30 03/17/17 14:29 Albuterol/ Ipratropium (Albuterol/ Ipratropium) 3 ml Q4H PRN HHN Shortness of Breath 02/15/17 14:30 02/20/17 14:29 Amiodarone HCl (Cordarone) 200 mg DAILY ORAL 02/18/17 09:00 03/17/17 20:59 Aspirin (Ecotrin) 81 mg DAILY ORAL 02/16/17 09:00 03/18/17 08:59 02/17/17 08:28 Carvedilol (Coreg) 25 mg EVERY 12 HOURS ORAL 02/15/17 21:00 03/17/17 20:59 02/17/17 22:40 Clopidogrel Bisulfate (Plavix) 75 mg DAILY ORAL 02/16/17 09:00 03/18/17 08:59 02/17/17 08:28 Dextrose (Dextrose 50%) STAT PRN IV Hypoglycemia 02/15/17 14:30 03/17/17 14:29 Digoxin (Lanoxin) 0.125 mg DAILY ORAL 02/16/17 09:00 03/18/17 08:59 02/17/17 08:28 Furosemide 100 mg/ Dextrose 100 ml @ 10 mls/hr Q10H IV 02/17/17 15:00 03/19/17 14:59 02/18/17 00:36 Heparin Sodium (Porcine) (Heparin 5000 units/ml) 5,000 units EVERY 12 HOURS SUBQ 02/15/17 21:00 03/17/17 20:59 02/17/17 22:43 Insulin Aspart (NovoLOG) BEFORE MEALS AND HS SUBQ 02/15/17 16:30 03/17/17 16:29 02/18/17 06:40 Ondansetron HCl (Zofran) 4 mg Q6H PRN IVP Nausea & Vomiting 02/15/17 14:30 03/17/17 14:29 Polyethylene Glycol (Miralax) 17 gm DAILYPRN PRN ORAL Constipation 02/15/17 14:30 03/17/17 14:29 Potassium Chloride (K-Dur) 40 meq QPM ORAL 02/15/17 16:30 03/17/17 16:29 02/17/17 16:10 Temazepam (Restoril) 15 mg HSPRN PRN ORAL Insomnia 02/15/17 14:30 02/22/17 14:29 Warfarin Sodium (Coumadin per pharmacy) 1 ea DAILY PRN MISC Per rx protocol 02/17/17 18:15 03/19/17 18:14 Ron[facility] ([facility])Irene NP Feb 18, 2017 09:21
[2017-02-18] MEDS ORDERED: Albuterol/Ipratropium 3ml neb HHN PRN (09:30)
[2017-02-18 12:00] VITALS: BP 95/74
[2017-02-18 13:22] LABS: INR 1.7 (0.9-1.1); PROTHROMBIN TIME 17.5 SEC (9.30-11.50)
[2017-02-18 13:42] LABS: ALANINE AMINOTRANSFERASE 187 U/L (12-78); ALBUMIN/GLOBULIN RATIO 0.8 (1.0-2.7); ANION GAP 9 mmol/L (5-15); ASPARTATE AMINO TRANSFERASE 270 U/L (15-37); CALCIUM 8.5 MG/DL (8.5-10.1); CARBON DIOXIDE 26 MMOL/L (21-32); CHLORIDE 102 MMOL/L (98-107); CREATININE 1.3 MG/DL (0.55-1.30); GLOMERULAR FILTRATION RATE > 60 mL/min (>60); POTASSIUM 4.2 MMOL/L (3.5-5.1); SODIUM 137 MMOL/L (136-145); TOTAL PROTEIN 6.5 G/DL (6.4-8.2)
[2017-02-18 14:28] LABS: BILIRUBIN,DIRECT 4.6 MG/DL (0.0-0.3)
[2017-02-18 16:00] VITALS: BP 116/73
[2017-02-18] MEDS ORDERED: Warfarin Sodium 5mg ORAL ONE (17:00)
--- NOTE | 2017-02-18 17:38 | Cardiology Progress Note ---
Assessment/Plan Assessment/Plan 1. Acute on chronic CHF 2. Status post percutaneous coronary intervention of the circumflex artery 2016 3. Cardiomyopathy. ejection fraction of 20% 4. History of intracardiac defibrillator placement. 5. abnormal LFTs 6. Mitral regurgitation severe 7. Pulmonary hypertension.worsend 8. Tricuspid regurgitation. 9. Paroxysmal atrial fibrillation. [id number] decrease amido due to abn lft xarelto not appropriate for lv thrombus in setting of afib resume Coumadin resume acei when bp allows bp limit diuretic heart rate seems ok he is non compliant he did not allow blood draw for protime add zoroxolyn 5 mg dialy including tonite Subjective Cardiovascular: Denies: chest pain, lightheadedness, palpitations Respiratory: Denies: SOB with excertion Gastrointestinal/Abdominal: Denies: abdominal pain Genitourinary: Reports: other - edematou gu area , Denies: burning Objective Last 24 Hour Vital Signs Date Time Temp Pulse Resp B/P (MAP) Pulse Ox O2 Delivery O2 Flow Rate FiO2 02/18/17 16:00 97.3 82 17 116/73 96 Room Air 2.0 02/18/17 12:00 80 02/18/17 12:00 97.0 79 19 95/74 97 Room Air 02/18/17 09:20 80 02/18/17 09:00 87 95/64 02/18/17 08:00 92 02/18/17 08:00 98.7 20 95/64 96 Room Air 02/18/17 06:35 87 18 Room Air 21 02/18/17 06:35 Room Air 21 02/18/17 06:35 96 Room Air 21 02/18/17 04:00 80 02/18/17 04:00 99.0 73 19 103/68 99 Nasal Cannula 4.0 02/18/17 00:00 98.4 73 20 100/51 100 Nasal Cannula 4.0 02/18/17 00:00 81 02/17/17 22:40 76 97/47 02/17/17 20:00 89 02/17/17 19:53 97.2 76 20 97/47 99 Nasal Cannula 2.0 02/17/17 19:19 Nasal Cannula 2.0 28 02/17/17 19:19 98 Nasal Cannula 2.0 28 02/17/17 19:19 82 20 Nasal Cannula 2.0 28 General Appearance: no apparent distress, alert Neck: JVD Cardiovascular: normal rate Respiratory/Chest: crackles/rales, expiratory wheezing Abdomen: normal bowel sounds, non tender, soft Extremities: severe edema Intake and Output 02/18/17 02/19/17 19:00 07:00 Intake Total 40 ml Balance 40 ml IV Total 40 ml Laboratory Tests Test 02/18/17 12:45 Prothrombin Time 17.5 SEC (9.30-11.50) H Prothromb Time International Ratio 1.7 (0.9-1.1) H Sodium Level 137 MMOL/L (136-145) Potassium Level 4.2 MMOL/L (3.5-5.1) Chloride Level 102 MMOL/L (98-107) Carbon Dioxide Level 26 MMOL/L (21-32) Anion Gap 9 mmol/L (5-15) Blood Urea Nitrogen 29 mg/dL (7-18) H Creatinine 1.3 MG/DL (0.55-1.30) Estimat Glomerular Filtration Rate > 60 mL/min (>60) Glucose Level 214 MG/DL (74-106) H Calcium Level 8.5 MG/DL (8.5-10.1) Total Bilirubin 5.2 MG/DL (0.2-1.0) H Direct Bilirubin 4.6 MG/DL (0.0-0.3) H Aspartate Amino Transf (AST/SGOT) 270 U/L (15-37) H Alanine Aminotransferase (ALT/SGPT) 187 U/L (12-78) H Alkaline Phosphatase 110 U/L (46-116) Total Protein 6.5 G/DL (6.4-8.2) Albumin 2.8 G/DL (3.4-5.0) L Globulin 3.7 g/dL Albumin/Globulin Ratio 0.8 (1.0-2.7) L Microbiology Date/Time Source Procedure Growth Status 02/16/17 10:00 Sputum Gram Stain - Final Complete 02/16/17 10:00 Sputum Sputum Culture - Final NORMAL UPPER RESPIRATORY DIMITRI AT 48 ... Complete AUBRIE TRIVEDI Feb 18, 2017 17:38
[2017-02-18 20:00] VITALS: BP 99/65
[2017-02-19] VITALS: BP 100/65
[2017-02-19 04:00] VITALS: BP 95/63
[2017-02-19] MEDS: NovoLOG Insulin Flexpen SUBQ SCH ×4 (07:04→21:09)
[2017-02-19 08:11] VITALS: BP 89/58
[2017-02-19] MEDS: Aspirin EC 81mg tab ORAL SCH (08:12)
[2017-02-19] MEDS: Heparin 5000 units/ml inj SUBQ SCH ×2 (08:14→21:34)
[2017-02-19] MEDS: Digoxin 0.125mg tab ORAL SCH (08:18)
--- NOTE | 2017-02-19 08:35 | Diagnostic Imaging Report ---
Indication: PAIN Abdominal pain, elevated liver function tests, abnormal renal function Technique: Pierce-scale and duplex images of the upper abdomen were obtained Comparison: None Findings: Trace ascites is present. Gallbladder demonstrates wall thickening, gallbladder wall measuring up to 8 mm thick. No gallstones. No pericholecystic fluid. Sonographic Benjamin's sign except for some small calcifications is negative. Common bile duct measures 5 mm in diameter. No intrahepatic biliary ductal dilatation. Liver demonstrates normal echogenicity, no focal abnormality. Is somewhat enlarged. There is trace ascites fluid present. Portal vein and hepatic veins are patent. Pancreas is unremarkable. Spleen is unremarkable except for some punctate calcifications within the parenchyma. Left kidney measures 12.8 cm in length. Right kidney measures 11.5 cm length. Both kidneys demonstrate normal echogenicity. There is no hydronephrosis. Small cysts are seen bilaterally . Abdominal aorta is partially obscured by bowel gas, visualized portions are non-aneurysmal . Is a small left pleural effusion Impression: Hepatomegaly Trace ascites Gallbladder wall thickening. No gallstones. Suspect reactive due to adjacent hepatocellular inflammation, or due to whatever hemodynamic derangements are causing ascites. However, acute acalculous cholecystitis cannot be completely ruled out. Consider nuclear medicine hepatobiliary scan for further evaluation if there is high clinical suspicion Negative for dilated ducts Small left pleural effusion Incidental finding small bilateral renal cysts, possible splenic calcifications
[2017-02-19] MEDS: Amiodarone 200mg tab ORAL SCH ×2 (09:00→11:04)
[2017-02-19] MEDS: Carvedilol 25mg Tab ORAL SCH ×3 (09:00→21:00)
--- NOTE | 2017-02-19 10:23 | Diagnostic Imaging Report ---
Indication: SOB Technique: One view of the chest Comparison: 02/16/2017 Findings: Left chest AICD again demonstrated. Heart remains enlarged. There is decreased hazy opacity at the right lung base. There is some residual bibasilar atelectasis. Left costophrenic angle is slightly blunted as previously. Impression: Improving right basilar infiltrate, over 3 days. Other stable findings as described
[2017-02-19] MEDS ORDERED: NS 275ml ONE (10:51)
[2017-02-19] MEDS ORDERED: Tubing IV Secondary IV ONE (10:51)
--- NOTE | 2017-02-19 12:02 | Pulmonology Progress Note ---
Assessment/Plan Assessment/Plan ASSESSMENT Acute systolic CHF exacerbation A fib/flutter, permanent Left AICD questionable ventricular thrombus hx of recent CVA Hx of CAD with stent placement COPD DM severe pulmonary HTN MR and TR transaminitis multiple extratesticular cysts versus complex extra testicular cystic lesion in the right hemiscrotum PLAN OF CARE Tele Lasix gtt monitor I/O monitor renal parameters lytes, replace as needed Fup with CXR and pro BNP in am ECHO with EF 15% and RVSP of 93, c/w severe pulmonary HTN as well as evidence of severe MR and TR Medical management of CHF with BB, Digoxin ( level therapeutic), diuretic , low BP to add SHABNAM for now cardio follows per cardio -A fib/flutter permanent; rate control with Amiodarone and BB, controlled, restarted on a/coagulation as per cardio -Coumadin, dose per pharmacy to reach therapeutic INR Amiodarone dose decreased due to elevated LFT trend LFT abdominal US revealed gallbladder wall thickening. No gallstones. Likely reactive due to adjacent hepatocellular inflammation, or due to whatever hemodynamic derangements are causing ascites. However, acute acalculous cholecystitis cannot be completely ruled out. Consider nuclear medicine hepatobiliary scan for further evaluation if there is high clinical suspicion will get hepatitis panel and GI consult O2 HHN prn BS management with SS of insulin DVT prophylaxis venous Duplex BLE PT eval and Rx testicular US noted urology eval case discussed and evaluated by supervising physician Subjective Allergies: Coded Allergies: No Known Allergies (Unverified , 08/10/16) Subjective + SOB no chest pain I/O with negative 2690 cc balance low BP earlier this am, Lasix gtt was stopped for 1 hr, blood pressure up currently , Lasix gtt resumed Objective Last 24 Hour Vital Signs Date Time Temp Pulse Resp B/P (MAP) Pulse Ox O2 Delivery O2 Flow Rate FiO2 02/19/17 11:03 80 143/50 02/19/17 09:00 100 89/58 02/19/17 08:18 100 02/19/17 08:11 97.0 100 19 89/58 Room Air 02/19/17 08:00 86 02/19/17 07:57 97 Room Air 21 02/19/17 07:57 74 18 Room Air 21 02/19/17 04:00 85 02/19/17 04:00 97.3 103 18 95/63 97 Room Air 2.0 21 11/18/17 00:00 96 02/19/17 00:00 97.0 105 18 100/65 95 Room Air 2.0 21 02/18/17 21:00 82 99/65 02/18/17 20:00 90 02/18/17 20:00 97.0 82 18 99/65 95 Room Air 2.0 21 02/18/17 19:51 95 Room Air 21 02/18/17 19:51 70 18 Room Air 21 02/18/17 16:00 84 02/18/17 16:00 97.3 82 17 116/73 96 Room Air 2.0 02/18/17 12:00 80 02/18/17 12:00 97.0 79 19 95/74 97 Room Air Intake and Output 02/19/17 02/20/17 19:00 07:00 Intake Total 25 ml Balance 25 ml IV Total 25 ml Objective General Appearance: no acute distress, A/A/O x 3 AA male in NAD HEENT: normocephalic, atraumatic, anicteric Respiratory/Chest: chest wall non-tender, lungs clear, other - left chest AICD Cardiovascular: normal rate - A fib with V pacing , rate controlled , irregularly irregular Abdomen: normal bowel sounds, soft, non tender : scrotal edema Extremities: other - trace edema to +1 BLE Neurologic/Psychiatric: alert, oriented x 3, responsive, normal mood/affect Musculoskeletal: normal muscle bulk Laboratory Tests 02/18/17 12:45: Prothrombin Time 17.5H, Prothromb Time International Ratio 1.7H, Sodium Level 137, Potassium Level 4.2, Chloride Level 102, Carbon Dioxide Level 26, Anion Gap 9, Blood Urea Nitrogen 29H, Creatinine 1.3, Estimat Glomerular Filtration Rate > 60, Glucose Level 214H, Calcium Level 8.5, Total Bilirubin 5.2H, Direct Bilirubin 4.6H, Aspartate Amino Transf (AST/SGOT) 270H, Alanine Aminotransferase (ALT/SGPT) 187H, Alkaline Phosphatase 110, Total Protein 6.5, Albumin 2.8L, Globulin 3.7, Albumin/Globulin Ratio 0.8L Current Medications Medications (Trade) Dose Ordered Sig/Ana Route PRN Reason Start Time Stop Time Status Last Admin Dose Admin Acetaminophen (Tylenol) 650 mg Q4H PRN ORAL Fever 02/15/17 14:30 03/17/17 14:29 Albuterol/ Ipratropium (Albuterol/ Ipratropium) 3 ml Q4H PRN HHN Shortness of Breath 02/18/17 09:30 02/23/17 09:29 Amiodarone HCl (Cordarone) 200 mg DAILY ORAL 02/18/17 09:00 03/17/17 20:59 02/19/17 11:04 Aspirin (Ecotrin) 81 mg DAILY ORAL 02/16/17 09:00 03/18/17 08:59 02/19/17 08:12 Carvedilol (Coreg) 25 mg EVERY 12 HOURS ORAL 02/15/17 21:00 03/17/17 20:59 02/19/17 11:03 Clopidogrel Bisulfate (Plavix) 75 mg DAILY ORAL 02/16/17 09:00 03/18/17 08:59 02/19/17 08:13 Dextrose (Dextrose 50%) STAT PRN IV Hypoglycemia 02/15/17 14:30 03/17/17 14:29 Digoxin (Lanoxin) 0.125 mg DAILY ORAL 02/16/17 09:00 03/18/17 08:59 02/19/17 08:18 Furosemide 100 mg/ Dextrose 100 ml @ 10 mls/hr Q10H IV 02/17/17 15:00 03/19/17 14:59 02/19/17 06:59 Heparin Sodium (Porcine) (Heparin 5000 units/ml) 5,000 units EVERY 12 HOURS SUBQ 02/15/17 21:00 03/17/17 20:59 02/19/17 08:14 Insulin Aspart (NovoLOG) BEFORE MEALS AND HS SUBQ 02/15/17 16:30 03/17/17 16:29 02/19/17 07:04 Metolazone (Zaroxolyn) 5 mg DAILY ORAL 02/18/17 17:45 03/20/17 17:44 02/19/17 08:18 Ondansetron HCl (Zofran) 4 mg Q6H PRN IVP Nausea & Vomiting 02/15/17 14:30 03/17/17 14:29 Polyethylene Glycol (Miralax) 17 gm DAILYPRN PRN ORAL Constipation 02/15/17 14:30 03/17/17 14:29 Potassium Chloride (K-Dur) 40 meq QPM ORAL 02/15/17 16:30 03/17/17 16:29 02/18/17 17:12 Temazepam (Restoril) 15 mg HSPRN PRN ORAL Insomnia 02/15/17 14:30 02/22/17 14:29 Warfarin Sodium (Coumadin per pharmacy) 1 ea DAILY PRN MISC Per rx protocol 02/17/17 18:15 03/19/17 18:14 [place] ([facility])Irene NP Feb 19, 2017 12:02
[2017-02-19 12:07] VITALS: BP 138/97
--- NOTE | 2017-02-19 12:16 | Diagnostic Imaging Report ---
Indications: PAIN Technique: Grayscale and duplex images of the scrotum Comparison: Findings:The right testicle measures 3.1cm in length. It demonstrates normal echogenicity. Normal Doppler flow. The epididymal head is enlarged although not hyperemic. Multiple extratesticular cysts are seen, associated with some intervening soft tissue septations.. The relationship to the epididymis is uncertain, and some of these appear to be coming from the scrotal wall. Cysts measure up to 2.1 cm in diameter, some of them contain internal debris. There is also a hydrocele which contains a 7 mm soft tissue nodule centrally. The left testicle measures 3.8 cm in length. It demonstrates normal echogenicity and normal Doppler flow. Normal epididymis. There is a small left-sided varicocele Impression: Multiple extratesticular cysts versus complex extra testicular cystic lesion in the right hemiscrotum. Relationship to the epididymis and scrotal wall uncertain. Given the complex appearance of this, further evaluation with scrotal MRI is recommended to better characterize Prominent right epididymal head, possibility of epididymitis should be considered Small left varicocele Right hydrocele
[2017-02-19 13:03] LABS: BASOPHILS % (AUTO) 0.8 % (0.0-2.0); EOSINOPHILS % (AUTO) 0.7 % (0.0-3.0); LYMPHOCYTES % (AUTO) 16.7 % (20.0-45.0); MEAN CORPUSCULAR HEMOGLOBIN 24.1 PG (27.0-31.0); MEAN CORPUSCULAR HGB CONC 31.1 G/DL (32.0-36.0); MEAN CORPUSCULAR VOLUME 77 FL (80-99); MEAN PLATELET VOLUME 5.8 FL (6.5-10.1); MONOCYTES % (AUTO) 12.1 % (1.0-10.0); NEUTROPHILS % (AUTO) 69.6 % (45.0-75.0); PLATELET COUNT 326 K/UL (150-450); RED BLOOD COUNT 4.85 M/UL (4.70-6.10); RED CELL DISTRIBUTION WIDTH 18.4 % (11.6-14.8); WHITE BLOOD COUNT 8.8 K/UL (4.8-10.8)
[2017-02-19 13:06] LABS: INR 1.6 (0.9-1.1); PROTHROMBIN TIME 17.1 SEC (9.30-11.50)
[2017-02-19 13:24] LABS: ALANINE AMINOTRANSFERASE 172 U/L (12-78); ALBUMIN/GLOBULIN RATIO 0.7 (1.0-2.7); ANION GAP 5 mmol/L (5-15); ASPARTATE AMINO TRANSFERASE 202 U/L (15-37); CALCIUM 8.8 MG/DL (8.5-10.1); CARBON DIOXIDE 33 MMOL/L (21-32); CHLORIDE 98 MMOL/L (98-107); CREATININE 1.4 MG/DL (0.55-1.30); GLOMERULAR FILTRATION RATE > 60 mL/min (>60); POTASSIUM 4.2 MMOL/L (3.5-5.1); SODIUM 136 MMOL/L (136-145); TOTAL PROTEIN 6.6 G/DL (6.4-8.2)
[2017-02-19 13:26] LABS: BILIRUBIN,DIRECT 4.2 MG/DL (0.0-0.3)
[2017-02-19 16:39] VITALS: BP 102/65
[2017-02-19] MEDS: Warfarin Sodium 3mg ORAL SCH (17:25)
--- NOTE | 2017-02-19 18:21 | Cardiology Progress Note ---
Assessment/Plan Assessment/Plan explained to the patient, that he will required at lest two more days of diuresis in the hosptial Subjective Subjective The patient is sitting on his bed her reports feeling slightly better, but still has swelling o his scrotum\ wonders when can go home Objective Last 24 Hour Vital Signs Date Time Temp Pulse Resp B/P (MAP) Pulse Ox O2 Delivery O2 Flow Rate FiO2 02/19/17 16:39 97.9 73 19 102/65 Room Air 02/19/17 16:00 83 02/19/17 12:07 97.2 89 18 138/97 Room Air 02/19/17 12:00 87 02/19/17 11:03 80 143/50 02/19/17 09:00 100 89/58 02/19/17 08:18 100 02/19/17 08:11 97.0 100 19 89/58 Room Air 02/19/17 08:00 86 02/19/17 07:57 97 Room Air 21 02/19/17 07:57 74 18 Room Air 21 02/19/17 04:00 85 02/19/17 04:00 97.3 103 18 95/63 97 Room Air 2.0 21 02/19/17 00:00 96 02/19/17 00:00 97.0 105 18 100/65 95 Room Air 2.0 21 02/18/17 21:00 82 99/65 02/18/17 20:00 90 02/18/17 20:00 97.0 82 18 99/65 95 Room Air 2.0 21 02/18/17 19:51 95 Room Air 21 02/18/17 19:51 70 18 Room Air 21 General Appearance: mild distress EENT: PERRL/EOMI Neck: JVD Rhythm: Afib Cardiovascular: tachycardia Respiratory/Chest: crackles/rales Abdomen: distended Extremities: severe edema Intake and Output 02/19/17 02/20/17 19:00 07:00 Intake Total 55 ml Balance 55 ml IV Total 55 ml Laboratory Tests Test 02/19/17 12:50 White Blood Count 8.8 K/UL (4.8-10.8) Red Blood Count 4.85 M/UL (4.70-6.10) Hemoglobin 11.7 G/DL (14.2-18.0) L Hematocrit 37.6 % (42.0-52.0) L Mean Corpuscular Volume 77 FL (80-99) L Mean Corpuscular Hemoglobin 24.1 PG (27.0-31.0) L Mean Corpuscular Hemoglobin Concent 31.1 G/DL (32.0-36.0) L Red Cell Distribution Width 18.4 % (11.6-14.8) H Platelet Count 326 K/UL (150-450) Mean Platelet Volume 5.8 FL (6.5-10.1) L Neutrophils (%) (Auto) 69.6 % (45.0-75.0) Lymphocytes (%) (Auto) 16.7 % (20.0-45.0) L Monocytes (%) (Auto) 12.1 % (1.0-10.0) H Eosinophils (%) (Auto) 0.7 % (0.0-3.0) Basophils (%) (Auto) 0.8 % (0.0-2.0) Prothrombin Time 17.1 SEC (9.30-11.50) H Prothromb Time International Ratio 1.6 (0.9-1.1) H Sodium Level 136 MMOL/L (136-145) Potassium Level 4.2 MMOL/L (3.5-5.1) Chloride Level 98 MMOL/L (98-107) Carbon Dioxide Level 33 MMOL/L (21-32) H Anion Gap 5 mmol/L (5-15) Blood Urea Nitrogen 29 mg/dL (7-18) H Creatinine 1.4 MG/DL (0.55-1.30) H Estimat Glomerular Filtration Rate > 60 mL/min (>60) Glucose Level 134 MG/DL (74-106) H Calcium Level 8.8 MG/DL (8.5-10.1) Total Bilirubin 4.7 MG/DL (0.2-1.0) H Direct Bilirubin 4.2 MG/DL (0.0-0.3) H Aspartate Amino Transf (AST/SGOT) 202 U/L (15-37) H Alanine Aminotransferase (ALT/SGPT) 172 U/L (12-78) H Alkaline Phosphatase 112 U/L (46-116) Pro-B-Type Natriuretic Peptide 4266 pg/mL (0-125) H Total Protein 6.6 G/DL (6.4-8.2) Albumin 2.8 G/DL (3.4-5.0) L Globulin 3.8 g/dL Albumin/Globulin Ratio 0.7 (1.0-2.7) L BELL GONZALEZ Feb 19, 2017 18:21
[2017-02-19 20:11] VITALS: BP 97/77
[2017-02-20 00:47] VITALS: BP 92/60
[2017-02-20 04:11] VITALS: BP 97/71
[2017-02-20] MEDS: NovoLOG Insulin Flexpen SUBQ SCH ×4 (06:30→22:05)
[2017-02-20 08:00] VITALS: BP 105/65
[2017-02-20] MEDS: Amiodarone 200mg tab ORAL SCH (08:57)
[2017-02-20] MEDS: Aspirin EC 81mg tab ORAL SCH (09:00)
[2017-02-20] MEDS: Digoxin 0.125mg tab ORAL SCH (09:00)
[2017-02-20] MEDS: Carvedilol 25mg Tab ORAL SCH ×2 (09:00→22:02)
[2017-02-20 09:01] LABS: ALANINE AMINOTRANSFERASE 164 U/L (12-78); ALBUMIN/GLOBULIN RATIO 0.7 (1.0-2.7); ANION GAP 7 mmol/L (5-15); ASPARTATE AMINO TRANSFERASE 147 U/L (15-37); CALCIUM 8.9 MG/DL (8.5-10.1); CARBON DIOXIDE 34 MMOL/L (21-32); CHLORIDE 95 MMOL/L (98-107); CREATININE 1.5 MG/DL (0.55-1.30); GLOMERULAR FILTRATION RATE 59.1 mL/min (>60); POTASSIUM 3.6 MMOL/L (3.5-5.1); SODIUM 136 MMOL/L (136-145); TOTAL PROTEIN 6.7 G/DL (6.4-8.2)
[2017-02-20 09:06] LABS: INR 1.7 (0.9-1.1); PROTHROMBIN TIME 17.5 SEC (9.30-11.50)
[2017-02-20] MEDS: Heparin 5000 units/ml inj SUBQ SCH ×2 (09:09→22:05)
[2017-02-20 09:48] LABS: BILIRUBIN,DIRECT 3.9 MG/DL (0.0-0.3)
--- NOTE | 2017-02-20 11:11 | General Progress Note ---
Assessment/Plan Assessment/Plan GI CONSULT Dictated Thank you Cecil Pitts MD Subjective Allergies: Coded Allergies: No Known Allergies (Unverified , 08/10/16) Objective Last 24 Hour Vital Signs Date Time Temp Pulse Resp B/P (MAP) Pulse Ox O2 Delivery O2 Flow Rate FiO2 02/20/17 09:00 97 02/20/17 08:00 97.7 79 20 105/65 93 Room Air 02/20/17 07:15 97 Room Air 21 02/20/17 07:15 91 20 Room Air 21 02/20/17 04:11 97.4 109 18 97/71 90 Room Air 02/20/17 04:00 80 02/20/17 00:47 94.7 80 18 92/60 92 Room Air 02/20/17 00:00 85 02/19/17 21:00 70 97/77 02/19/17 20:11 97.5 70 18 97/77 98 Room Air 02/19/17 20:00 99 02/19/17 19:30 71 20 Room Air 02/19/17 19:30 98 Room Air 21 02/19/17 16:39 97.9 73 19 102/65 Room Air 02/19/17 16:00 83 02/19/17 12:07 97.2 89 18 138/97 Room Air 02/19/17 12:00 87 02/19/17 11:03 80 143/50 Laboratory Tests 02/19/17 12:50: White Blood Count 8.8, Red Blood Count 4.85, Hemoglobin 11.7L, Hematocrit 37.6L , Mean Corpuscular Volume 77L, Mean Corpuscular Hemoglobin 24.1L, Mean Corpuscular Hemoglobin Concent 31.1L, Red Cell Distribution Width 18.4H, Platelet Count 326, Mean Platelet Volume 5.8L, Neutrophils (%) (Auto) 69.6, Lymphocytes (%) (Auto) 16.7L, Monocytes (%) (Auto) 12.1H, Eosinophils (%) (Auto ) 0.7, Basophils (%) (Auto) 0.8, Prothrombin Time 17.1H, Prothromb Time International Ratio 1.6H, Sodium Level 136, Potassium Level 4.2, Chloride Level 98, Carbon Dioxide Level 33H, Anion Gap 5, Blood Urea Nitrogen 29H, Creatinine 1.4H, Estimat Glomerular Filtration Rate > 60, Glucose Level 134H, Calcium Level 8.8, Total Bilirubin 4.7H, Direct Bilirubin 4.2H, Aspartate Amino Transf ( AST/SGOT) 202H, Alanine Aminotransferase (ALT/SGPT) 172H, Alkaline Phosphatase 112, Pro-B-Type Natriuretic Peptide 4266H, Total Protein 6.6, Albumin 2.8L, Globulin 3.8, Albumin/Globulin Ratio 0.7L 02/20/17 08:10: Prothrombin Time 17.5H, Prothromb Time International Ratio 1.7H, Sodium Level 136, Potassium Level 3.6, Chloride Level 95L, Carbon Dioxide Level 34H, Anion Gap 7, Blood Urea Nitrogen 31H, Creatinine 1.5H, Estimat Glomerular Filtration Rate 59.1, Glucose Level 182H, Calcium Level 8.9, Total Bilirubin 4.7H, Direct Bilirubin 3.9H, Aspartate Amino Transf (AST/SGOT) 147H, Alanine Aminotransferase (ALT/SGPT) 164H, Alkaline Phosphatase 114, Total Protein 6.7, Albumin 2.8L, Globulin 3.9, Albumin/Globulin Ratio 0.7L, Hepatitis A IgM Antibody [Pending], Hepatitis B Surface Antigen [Pending], Hepatitis B Core IgM Antibody [Pending], Hepatitis C Antibody [Pending] Height (Feet): 5 Height (Inches): 9.00 Weight (Pounds): 197 ESTHER PITTS Feb 20, 2017 11:11
--- NOTE | 2017-02-20 11:30 | Pulmonology Progress Note ---
Assessment/Plan Assessment/Plan ASSESSMENT Acute systolic CHF exacerbation A fib/flutter, permanent Left AICD questionable ventricular thrombus hx of recent CVA Hx of CAD with stent placement COPD DM severe pulmonary HTN MR and TR transaminitis - possibly hepatic congestion due to R side heart failure multiple extratesticular cysts versus complex extra testicular cystic lesion in the right hemiscrotum PLAN OF CARE Tele Lasix gtt monitor I/O monitor renal parameters lytes, replace as needed Fup with CXR and pro BNP in am ECHO with EF 15% and RVSP of 93, c/w severe pulmonary HTN as well as evidence of severe MR and TR Medical management of CHF with BB, Digoxin ( level therapeutic), diuretic , low BP to add SHABNAM for now - per cardio discretion cardio follows per cardio -A fib/flutter permanent; rate control with Amiodarone and BB, controlled, restarted on a/coagulation as per cardio -Coumadin, dose per pharmacy to reach therapeutic INR, sill subtherapeutic-1.7 Amiodarone dose decreased due to elevated LFT trend LFT abdominal US revealed gallbladder wall thickening. No gallstones. Likely reactive due to adjacent hepatocellular inflammation, or due to whatever hemodynamic derangements are causing ascites. However, acute acalculous cholecystitis cannot be completely ruled out. Consider nuclear medicine hepatobiliary scan for further evaluation if there is high clinical suspicion hepatitis panel pending GI consult called and appreciated transaminitis possibly due to hepatic congestion 2ry to R side heart failure O2 HHN prn BS management with SS of insulin DVT prophylaxis venous Duplex BLE PT eval and Rx testicular US noted urology eval pending for today ( dr Cortes /dr Moya) case discussed and evaluated by supervising physician Subjective Allergies: Coded Allergies: No Known Allergies (Unverified , 08/10/16) Subjective improving SOB no chest pain I/O with negative 1915 cc balance edema improving ( scrotal and leg) Objective Last 24 Hour Vital Signs Date Time Temp Pulse Resp B/P (MAP) Pulse Ox O2 Delivery O2 Flow Rate FiO2 02/20/17 09:00 97 02/20/17 08:00 97.7 79 20 105/65 93 Room Air 02/20/17 07:15 97 Room Air 21 02/20/17 07:15 91 20 Room Air 21 02/20/17 04:11 97.4 109 18 97/71 90 Room Air 02/20/17 04:00 80 02/20/17 00:47 94.7 80 18 92/60 92 Room Air 02/20/17 00:00 85 02/19/17 21:00 70 97/77 02/19/17 20:11 97.5 70 18 97/77 98 Room Air 02/19/17 20:00 99 02/19/17 19:30 71 20 Room Air 21 02/19/17 19:30 98 Room Air 21 02/19/17 16:39 97.9 73 19 102/65 Room Air 02/19/17 16:00 83 02/19/17 12:07 97.2 89 18 138/97 Room Air 02/19/17 12:00 87 Objective General Appearance: no acute distress, A/A/O x 3 AA male in NAD HEENT: normocephalic, atraumatic, anicteric Respiratory/Chest: chest wall non-tender, lungs clear, other - left chest AICD Cardiovascular: normal rate - A fib with V pacing , rate controlled , irregularly irregular Abdomen: normal bowel sounds, soft, non tender. : scrotal edema Extremities: trace edema to +1 BLE Neurologic/Psychiatric: alert, oriented x 3, responsive, normal mood/affect Musculoskeletal: normal muscle bulk Laboratory Tests 02/19/17 12:50: White Blood Count 8.8, Red Blood Count 4.85, Hemoglobin 11.7L, Hematocrit 37.6L , Mean Corpuscular Volume 77L, Mean Corpuscular Hemoglobin 24.1L, Mean Corpuscular Hemoglobin Concent 31.1L, Red Cell Distribution Width 18.4H, Platelet Count 326, Mean Platelet Volume 5.8L, Neutrophils (%) (Auto) 69.6, Lymphocytes (%) (Auto) 16.7L, Monocytes (%) (Auto) 12.1H, Eosinophils (%) (Auto ) 0.7, Basophils (%) (Auto) 0.8, Prothrombin Time 17.1H, Prothromb Time International Ratio 1.6H, Sodium Level 136, Potassium Level 4.2, Chloride Level 98, Carbon Dioxide Level 33H, Anion Gap 5, Blood Urea Nitrogen 29H, Creatinine 1.4H, Estimat Glomerular Filtration Rate > 60, Glucose Level 134H, Calcium Level 8.8, Total Bilirubin 4.7H, Direct Bilirubin 4.2H, Aspartate Amino Transf ( AST/SGOT) 202H, Alanine Aminotransferase (ALT/SGPT) 172H, Alkaline Phosphatase 112, Pro-B-Type Natriuretic Peptide 4266H, Total Protein 6.6, Albumin 2.8L, Globulin 3.8, Albumin/Globulin Ratio 0.7L 02/20/17 08:10: Prothrombin Time 17.5H, Prothromb Time International Ratio 1.7H, Sodium Level 136, Potassium Level 3.6, Chloride Level 95L, Carbon Dioxide Level 34H, Anion Gap 7, Blood Urea Nitrogen 31H, Creatinine 1.5H, Estimat Glomerular Filtration Rate 59.1, Glucose Level 182H, Calcium Level 8.9, Total Bilirubin 4.7H, Direct Bilirubin 3.9H, Aspartate Amino Transf (AST/SGOT) 147H, Alanine Aminotransferase (ALT/SGPT) 164H, Alkaline Phosphatase 114, Total Protein 6.7, Albumin 2.8L, Globulin 3.9, Albumin/Globulin Ratio 0.7L, Hepatitis A IgM Antibody [Pending], Hepatitis B Surface Antigen [Pending], Hepatitis B Core IgM Antibody [Pending], Hepatitis C Antibody [Pending] Current Medications Medications (Trade) Dose Ordered Sig/Ana Route PRN Reason Start Time Stop Time Status Last Admin Dose Admin Acetaminophen (Tylenol) 650 mg Q4H PRN ORAL Fever 02/15/17 14:30 03/17/17 14:29 Albuterol/ Ipratropium (Albuterol/ Ipratropium) 3 ml Q4H PRN HHN Shortness of Breath 02/18/17 09:30 02/23/17 09:29 Amiodarone HCl (Cordarone) 200 mg DAILY ORAL 02/18/17 09:00 03/17/17 20:59 02/20/17 08:57 Aspirin (Ecotrin) 81 mg DAILY ORAL 02/16/17 09:00 03/18/17 08:59 02/20/17 09:00 Carvedilol (Coreg) 25 mg EVERY 12 HOURS ORAL 02/15/17 21:00 03/17/17 20:59 02/19/17 11:03 Clopidogrel Bisulfate (Plavix) 75 mg DAILY ORAL 02/16/17 09:00 03/18/17 08:59 02/20/17 08:57 Dextrose (Dextrose 50%) STAT PRN IV Hypoglycemia 02/15/17 14:30 03/17/17 14:29 Digoxin (Lanoxin) 0.125 mg DAILY ORAL 02/16/17 09:00 03/18/17 08:59 02/20/17 09:00 Furosemide 100 mg/ Dextrose 100 ml @ 10 mls/hr Q10H IV 02/17/17 15:00 03/19/17 14:59 02/20/17 04:21 Heparin Sodium (Porcine) (Heparin 5000 units/ml) 5,000 units EVERY 12 HOURS SUBQ 02/15/17 21:00 03/17/17 20:59 02/20/17 09:09 Insulin Aspart (NovoLOG) BEFORE MEALS AND HS SUBQ 02/15/17 16:30 03/17/17 16:29 02/20/17 06:30 Metolazone (Zaroxolyn) 5 mg DAILY ORAL 02/18/17 17:45 03/20/17 17:44 02/20/17 08:57 Ondansetron HCl (Zofran) 4 mg Q6H PRN IVP Nausea & Vomiting 02/15/17 14:30 03/17/17 14:29 Polyethylene Glycol (Miralax) 17 gm DAILYPRN PRN ORAL Constipation 02/15/17 14:30 03/17/17 14:29 Potassium Chloride (K-Dur) 40 meq QPM ORAL 02/15/17 16:30 03/17/17 16:29 02/19/17 17:25 Temazepam (Restoril) 15 mg HSPRN PRN ORAL Insomnia 02/15/17 14:30 02/22/17 14:29 Warfarin Sodium (Coumadin per pharmacy) 1 ea DAILY PRN MISC Per rx protocol 02/17/17 18:15 03/19/17 18:14 Warfarin Sodium (Coumadin) 6 mg COUMADIN ORAL 02/19/17 17:00 02/24/17 16:59 02/19/17 17:25 Irene Simons NP ([facility]) Feb 20, 2017 11:30
[2017-02-20 12:00] VITALS: BP 112/75
--- NOTE | 2017-02-20 12:59 | Consultation ---
History of Present Illness General Date patient seen: Feb 20, 2017 Time patient seen: 12:56 Chief Complaint: General Complaint Referring physician: Misti Reason for Consultation: Scrotal edema, testicular cysts Present Illness HPI 56 yo male admitted for CHF management. Noted penile and scrotal edema. Ultrasound done, showing benign incidental findings of right extratesticular cysts. No symptoms from this. Allergies: Coded Allergies: No Known Allergies (Unverified , 08/10/16) Medication History Scheduled Amiodarone Hcl* (Pacerone*), 200 MG ORAL EVERY 12 HOURS Aspirin* (Aspir 81*), 81 MG ORAL DAILY, (Reported) Aspirin* (Aspir 81*), 81 MG ORAL DAILY, (Reported) Atorvastatin Calcium* (Atorvastatin Calcium*), 80 MG ORAL BEDTIME, (Reported) Benazepril Hcl* (Benazepril Hcl*), 20 MG ORAL EVERY 12 HOURS, (Reported) Carvedilol* (Carvedilol*), 25 MG ORAL EVERY 12 HOURS, (Reported) Carvedilol* (Carvedilol*), 25 MG ORAL EVERY 12 HOURS, (Reported) Clopidogrel* (Clopidogrel*), 75 MG ORAL DAILY, (Reported) Digoxin* (Digoxin*), 125 MCG ORAL DAILY, (Reported) Fenofibrate,Micronized (Fenofibrate), 67 MG ORAL DAILY, (Reported) Furosemide* (Lasix*), 40 MG ORAL DAILY Metformin Hcl* (Metformin Hcl*), 1,000 ORAL TWICE A DAY, (Reported) Metoprolol Succinate* (Metoprolol Succinate*), 25 MG ORAL DAILY, (Reported) Rivaroxaban (Xarelto*), 20 MG ORAL DAILY, (Reported) Spironolact/Hydrochlorothiazid (Spironolactone-Hctz 25-25 Tab), 1 TAB ORAL DAILY , (Reported) Warfarin Sod (Coumadin*), 7.5 MG ORAL COUMADIN Miscellaneous Medications Heparin Sod/Dextrose* (Heparin-D5w 25,000 Unit/500 Ml*), 25,000 UNIT IV, ( Reported) Patient History Healthcare decision maker Resuscitation status Full Code Advanced Directive on File Past Medical/Surgical History Past Medical/Surgical History: (1) CHF exacerbation (2) Atrial flutter (3) Pulmonary edema Review of Systems Constitutional: Denies: no symptoms, see HPI, chills, sweats, fever, malaise, weakness, other Eye: Denies: no symptoms, see HPI, eye pain, blurred vision, tearing, double vision, nose pain, nose congestion, acuity changes, discharge, other ENT: Denies: no symptoms, see HPI, ear pain, ear discharge, nose pain, nose congestion, throat pain, throat swelling, mouth pain, hearing loss, nasal discharge, other Respiratory: Denies: no symptoms, see HPI, cough, orthopnea, shortness of breath, stridor, wheezing, ASHRAF, sputum, other Cardiovascular: Denies: no symptoms, see HPI, chest pain, edema, palpitations, syncope, PND, other Gastrointestinal: Denies: no symptoms, see HPI, abdominal pain, constipation, diarrhea, nausea, vomiting, melena, hematemesis, other Genitourinary: Denies: no symptoms, see HPI, discharge, dysuria, frequency, hematuria, pain, retention, incontinence, urgency, vag bleed/dc, other Musculoskeletal: Denies: no symptoms, see HPI, back pain, gout, joint pain, joint swelling, muscle pain, muscle stiffness, other Skin: Denies: no symptoms, see HPI, rash, change in color, change in hair/nails , dryness, lesions, other Psychiatric: Denies: no symptoms, see HPI, prior hx, anxiety, depressed feelings, emotional problems, SI, HI, hallucinations, other Neurological: Denies: no symptoms, see HPI, headache, numbness, paresthesia, seizure, tingling, tremors, focal weakness, syncope, dizziness, other Endocrine: Denies: no symptoms, see HPI, excessive sweating, flushing, intolerance to temperature, increased thirst, increased urine, unexplained weight loss, other Hematologic/Lymphatic: Denies: no symptoms, see HPI, anemia, blood clots, easy bleeding, easy bruising, swollen glands, diathesis, other Physical Exam General Appearance: no apparent distress HEENT: atraumatic Respiratory/Chest: lungs clear Abdomen: soft Genitourinary/Rectal: other - peno scrotal edema, normal bilateral testicles palpable Last 24 Hour Vital Signs Date Time Temp Pulse Resp B/P (MAP) Pulse Ox O2 Delivery O2 Flow Rate FiO2 02/20/17 12:00 97.0 72 20 112/75 98 Room Air 02/20/17 09:00 97 02/20/17 08:00 97.7 79 20 105/65 93 Room Air 02/20/17 07:15 97 Room Air 21 02/20/17 07:15 91 20 Room Air 21 02/20/17 04:11 97.4 109 18 97/71 90 Room Air 02/20/17 04:00 80 02/20/17 00:47 94.7 80 18 92/60 92 Room Air 02/20/17 00:00 85 02/19/17 21:00 70 97/77 02/19/17 20:11 97.5 70 18 97/77 98 Room Air 02/19/17 20:00 99 02/19/17 19:30 71 20 Room Air 02/19/17 19:30 98 Room Air 21 02/19/17 16:39 97.9 73 19 102/65 Room Air 02/19/17 16:00 83 Intake and Output 02/20/17 02/21/17 19:00 07:00 Intake Total 240 ml Output Total 1250 ml Balance -1010 ml Intake Oral 240 ml Output Urine Total 1250 ml # Bowel Movements 1 Laboratory Tests Test 02/20/17 08:10 Prothrombin Time 17.5 SEC (9.30-11.50) H Prothromb Time International Ratio 1.7 (0.9-1.1) H Sodium Level 136 MMOL/L (136-145) Potassium Level 3.6 MMOL/L (3.5-5.1) Chloride Level 95 MMOL/L (98-107) L Carbon Dioxide Level 34 MMOL/L (21-32) H Anion Gap 7 mmol/L (5-15) Blood Urea Nitrogen 31 mg/dL (7-18) H Creatinine 1.5 MG/DL (0.55-1.30) H Estimat Glomerular Filtration Rate 59.1 mL/min (>60) Glucose Level 182 MG/DL (74-106) H Calcium Level 8.9 MG/DL (8.5-10.1) Total Bilirubin 4.7 MG/DL (0.2-1.0) H Direct Bilirubin 3.9 MG/DL (0.0-0.3) H Aspartate Amino Transf (AST/SGOT) 147 U/L (15-37) H Alanine Aminotransferase (ALT/SGPT) 164 U/L (12-78) H Alkaline Phosphatase 114 U/L (46-116) Total Protein 6.7 G/DL (6.4-8.2) Albumin 2.8 G/DL (3.4-5.0) L Globulin 3.9 g/dL Albumin/Globulin Ratio 0.7 (1.0-2.7) L Hepatitis A IgM Antibody Pending Hepatitis B Surface Antigen Pending Hepatitis B Core IgM Antibody Pending Hepatitis C Antibody Pending Height (Feet): 5 Height (Inches): 9.00 Weight (Pounds): 197 Medications Current Medications Medications (Trade) Dose Ordered Sig/Ana Route PRN Reason Start Time Stop Time Status Last Admin Dose Admin Acetaminophen (Tylenol) 650 mg Q4H PRN ORAL Fever 02/15/17 14:30 03/17/17 14:29 Albuterol/ Ipratropium (Albuterol/ Ipratropium) 3 ml Q4H PRN HHN Shortness of Breath 02/18/17 09:30 02/23/17 09:29 Amiodarone HCl (Cordarone) 200 mg DAILY ORAL 02/18/17 09:00 03/17/17 20:59 02/20/17 08:57 Aspirin (Ecotrin) 81 mg DAILY ORAL 02/16/17 09:00 03/18/17 08:59 02/20/17 09:00 Carvedilol (Coreg) 25 mg EVERY 12 HOURS ORAL 02/15/17 21:00 03/17/17 20:59 02/19/17 11:03 Clopidogrel Bisulfate (Plavix) 75 mg DAILY ORAL 02/16/17 09:00 03/18/17 08:59 02/20/17 08:57 Dextrose (Dextrose 50%) STAT PRN IV Hypoglycemia 02/15/17 14:30 03/17/17 14:29 Digoxin (Lanoxin) 0.125 mg DAILY ORAL 02/16/17 09:00 03/18/17 08:59 02/20/17 09:00 Furosemide 100 mg/ Dextrose 100 ml @ 10 mls/hr Q10H IV 02/17/17 15:00 03/19/17 14:59 02/20/17 04:21 Heparin Sodium (Porcine) (Heparin 5000 units/ml) 5,000 units EVERY 12 HOURS SUBQ 02/15/17 21:00 03/17/17 20:59 02/20/17 09:09 Insulin Aspart (NovoLOG) BEFORE MEALS AND HS SUBQ 02/15/17 16:30 03/17/17 16:29 02/20/17 12:16 Metolazone (Zaroxolyn) 5 mg DAILY ORAL 02/18/17 17:45 03/20/17 17:44 02/20/17 08:57 Ondansetron HCl (Zofran) 4 mg Q6H PRN IVP Nausea & Vomiting 02/15/17 14:30 03/17/17 14:29 Polyethylene Glycol (Miralax) 17 gm DAILYPRN PRN ORAL Constipation 02/15/17 14:30 03/17/17 14:29 Potassium Chloride (K-Dur) 40 meq QPM ORAL 02/15/17 16:30 03/17/17 16:29 02/19/17 17:25 Temazepam (Restoril) 15 mg HSPRN PRN ORAL Insomnia 02/15/17 14:30 02/22/17 14:29 Warfarin Sodium (Coumadin per pharmacy) 1 ea DAILY PRN MISC Per rx protocol 02/17/17 18:15 03/19/17 18:14 Warfarin Sodium (Coumadin) 6 mg COUMADIN ORAL 02/19/17 17:00 02/24/17 16:59 02/19/17 17:25 Objective Narrative ultrasound: right epididymal region with multiple cysts, 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 Normal bilateral testicles. Assessment/Plan Status: stable Assessment/Plan 56 yo male with right likely spermatocele. No need for intervention. Not related to generalized scrotal edema, which is secondary to CHF exacerbation. 1. outpatient follow up biannually for physical exam of testicles. Sebastian Sanchez M.D. Feb 20, 2017 12:59
[2017-02-20 16:22] VITALS: BP 110/72
[2017-02-20] MEDS: Warfarin Sodium 3mg ORAL SCH (18:01)
--- NOTE | 2017-02-20 18:43 | Cardiology Progress Note ---
Assessment/Plan Assessment/Plan still has a lot of Le edema his K was 3.6 and Mg 1.9 will replace Mg montior lytes daily Subjective Subjective Treports feeling the same, but his scrotal edema improved wants to go home dyspena is better Objective Last 24 Hour Vital Signs Date Time Temp Pulse Resp B/P (MAP) Pulse Ox O2 Delivery O2 Flow Rate FiO2 02/20/17 16:22 97.9 72 18 110/72 Room Air 02/20/17 12:00 97.0 72 20 112/75 98 Room Air 02/20/17 12:00 79 02/20/17 09:37 111 02/20/17 09:00 97 02/20/17 08:00 97.7 79 20 105/65 93 Room Air 02/20/17 08:00 86 02/20/17 07:15 97 Room Air 21 02/20/17 07:15 91 20 Room Air 21 02/20/17 04:11 97.4 109 18 97/71 90 Room Air 02/20/17 04:00 80 02/20/17 00:47 94.7 80 18 92/60 92 Room Air 02/20/17 00:00 85 02/19/17 21:00 70 97/77 02/19/17 20:11 97.5 70 18 97/77 98 Room Air 02/19/17 20:00 99 02/19/17 19:30 71 20 Room Air 21 02/19/17 19:30 98 Room Air 21 General Appearance: mild distress, severe distress Neck: JVD Rhythm: Afib Cardiovascular: tachycardia, systolic murmur Respiratory/Chest: crackles/rales Abdomen: distended Extremities: severe edema Intake and Output 02/20/17 02/21/17 19:00 07:00 Intake Total 480 ml Output Total 1650 ml Balance -1170 ml Intake Oral 480 ml Output Urine Total 1650 ml # Bowel Movements 1 Laboratory Tests Test 02/20/17 08:10 02/20/17 08:37 Prothrombin Time 17.5 SEC (9.30-11.50) H Prothromb Time International Ratio 1.7 (0.9-1.1) H Sodium Level 136 MMOL/L (136-145) Potassium Level 3.6 MMOL/L (3.5-5.1) Chloride Level 95 MMOL/L (98-107) L Carbon Dioxide Level 34 MMOL/L (21-32) H Anion Gap 7 mmol/L (5-15) Blood Urea Nitrogen 31 mg/dL (7-18) H Creatinine 1.5 MG/DL (0.55-1.30) H Estimat Glomerular Filtration Rate 59.1 mL/min (>60) Glucose Level 182 MG/DL (74-106) H Calcium Level 8.9 MG/DL (8.5-10.1) Total Bilirubin 4.7 MG/DL (0.2-1.0) H Direct Bilirubin 3.9 MG/DL (0.0-0.3) H Aspartate Amino Transf (AST/SGOT) 147 U/L (15-37) H Alanine Aminotransferase (ALT/SGPT) 164 U/L (12-78) H Alkaline Phosphatase 114 U/L (46-116) Total Protein 6.7 G/DL (6.4-8.2) Albumin 2.8 G/DL (3.4-5.0) L Globulin 3.9 g/dL Albumin/Globulin Ratio 0.7 (1.0-2.7) L Hepatitis A IgM Antibody Pending Hepatitis B Surface Antigen Pending Hepatitis B Core IgM Antibody Pending Hepatitis C Antibody Pending Magnesium Level 1.9 MG/DL (1.8-2.4) BELL GONZALEZ Feb 20, 2017 18:43
[2017-02-20 20:06] VITALS: BP 113/81
--- NOTE | 2017-02-20 22:00 | Consultation ---
DATE OF CONSULTATION: 02/20/2017 GASTROENTEROLOGY CONSULTATION CHIEF COMPLAINT: I was asked to see this patient by Dr. Cate George for Dr. Ledbetter for evaluation of liver disease. HISTORY OF PRESENT ILLNESS: The patient is a 56-year-old man, who comes into the hospital due to cardiac issues and congestive heart failure. The patient cannot recall ever having any liver disease and he does not drink heavily. The patient has multiple medical problems including congestive heart failure, atrial fibrillation and flutter. He is status post AICD placement and also has lower extremity edema. His liver tests, however, have been noted to be elevated. He is on amiodarone, but he cannot recall being on this at home. His ejection fraction is 15%. The patient has elevated INR, but he is on Coumadin. PAST MEDICAL HISTORY: History of congestive heart failure, atrial fibrillation, atrial flutter, status post AICD placement, ejection fraction of 15%, COPD, diabetes, pulmonary hypertension, mitral regurgitation, tricuspid regurgitation and history of transaminitis. MEDICATIONS: See chart list for details. FAMILY HISTORY: Noncontributory. SOCIAL HISTORY: The patient lives in [facility]. He denies heavy drinking. REVIEW OF SYSTEMS: Otherwise negative. PHYSICAL EXAMINATION: GENERAL: A pleasant man, seen in his room. HEENT: Normocephalic and atraumatic. NECK: Supple. Jugular venous distention was present. CHEST: Coarse breath sounds. CARDIOVASCULAR: Regular rate. ABDOMEN: Soft and distended with good bowel sounds. EXTREMITIES: Bilateral edema. NEUROLOGIC: Grossly nonfocal. LABORATORY AND DIAGNOSTIC DATA: Laboratory data was noted. Imaging study of the liver was reviewed and was notable for hepatomegaly with gallbladder wall thickening, but no gallstones. ASSESSMENT: This patient has significant heart failure with poor ejection fraction and severe pulmonary hypertension. These are all significant risk factors for right-sided heart failure, which is visible on examination with jugular venous distention and lower extremity edema. In that setting, congestive hepatic liver disease is fairly typical and the patient indeed has transaminitis , which are consistent with this finding. His bilirubin is also elevated, but there was no evidence of obstruction on the imaging study. He should be screened for hepatitis serologies and care should be taken when using agents such as amiodarone, which may have liver toxicity profile. A close risk-benefit analysis will be worthwhile. In addition, the patient has microcytic indices on his CBC, and therefore, stool occult blood should be checked. He has never had an endoscopy or colonoscopy, and I advised him to seek these tests to be done as an outpatient once he is improved. RECOMMENDATIONS: Per above discussion and per orders written in the chart. Thank you for asking me to participate in the care of this patient. Hardik Pitts M.D. DR: DASH JOB#: [id number] CC:
[2017-02-21 00:01] VITALS: BP 122/70
[2017-02-21 04:13] VITALS: BP 103/60
[2017-02-21 05:22] LABS: BASOPHILS % (AUTO) 0.8 % (0.0-2.0); EOSINOPHILS % (AUTO) 0.5 % (0.0-3.0); LYMPHOCYTES % (AUTO) 20.8 % (20.0-45.0); MEAN CORPUSCULAR HEMOGLOBIN 24.3 PG (27.0-31.0); MEAN CORPUSCULAR HGB CONC 31.9 G/DL (32.0-36.0); MEAN CORPUSCULAR VOLUME 76 FL (80-99); MEAN PLATELET VOLUME 6.8 FL (6.5-10.1); MONOCYTES % (AUTO) 12.1 % (1.0-10.0); NEUTROPHILS % (AUTO) 65.7 % (45.0-75.0); PLATELET COUNT 343 K/UL (150-450); RED BLOOD COUNT 4.78 M/UL (4.70-6.10); RED CELL DISTRIBUTION WIDTH 18.7 % (11.6-14.8)
[2017-02-21 05:27] LABS: INR 1.8 (0.9-1.1); PROTHROMBIN TIME 19.4 SEC (9.30-11.50)
[2017-02-21 05:53] LABS: ALANINE AMINOTRANSFERASE 142 U/L (12-78); ALBUMIN/GLOBULIN RATIO 0.7 (1.0-2.7); ANION GAP 4 mmol/L (5-15); ASPARTATE AMINO TRANSFERASE 105 U/L (15-37); CALCIUM 9.7 MG/DL (8.5-10.1); CARBON DIOXIDE 37 MMOL/L (21-32); CHLORIDE 95 MMOL/L (98-107); CREATININE 1.5 MG/DL (0.55-1.30); GLOMERULAR FILTRATION RATE 59.1 mL/min (>60); POTASSIUM 4.1 MMOL/L (3.5-5.1); SODIUM 136 MMOL/L (136-145); TOTAL PROTEIN 7.3 G/DL (6.4-8.2)
[2017-02-21 06:06] LABS: BILIRUBIN,DIRECT 3.6 MG/DL (0.0-0.3)
[2017-02-21] MEDS: NovoLOG Insulin Flexpen SUBQ SCH ×2 (06:50→11:22)
[2017-02-21] MEDS: Amiodarone 200mg tab ORAL SCH (08:17)
[2017-02-21] MEDS: Carvedilol 25mg Tab ORAL SCH (08:18)
[2017-02-21] MEDS: Aspirin EC 81mg tab ORAL SCH (08:18)
[2017-02-21] MEDS: Heparin 5000 units/ml inj SUBQ SCH (08:25)
[2017-02-21 08:38] VITALS: BP 101/80
--- NOTE | 2017-02-21 09:58 | GI Progress Note ---
Assessment/Plan Problems: (1) Transaminitis ICD Codes: R74.0 - Nonspecific elevation of levels of transaminase and lactic acid dehydrogenase [LDH] SNOMED: 228406541 (2) Pulmonary edema ICD Codes: J81.1 - Chronic pulmonary edema SNOMED: 42295162 (3) CHF exacerbation ICD Codes: I50.9 - Heart failure, unspecified SNOMED: 60729395 Qualifiers: Qualified Codes: I50.9 - Heart failure, unspecified Status: stable Status Narrative Discussed with Dr. Ledbetter. Assessment/Plan congestive hepatic disease abdominal U/S reviewed >> no evidence of obstruction cardiac diet, tolerating fu OB stool fu hep panel avoid hepatotoxic drugs follow LFTs outpatient EGD/colonoscopy >> patient on plavix and coumadin Subjective Subjective wants to go home edema has gone down Objective Last 24 Hour Vital Signs Date Time Temp Pulse Resp B/P (MAP) Pulse Ox O2 Delivery O2 Flow Rate FiO2 02/21/17 08:38 96.1 93 18 101/80 Nasal Cannula 2.0 02/21/17 08:00 84 02/21/17 04:13 97.5 77 18 103/60 90 Room Air 02/21/17 04:00 73 02/21/17 00:01 97.6 64 18 122/70 96 Room Air 02/21/17 00:00 79 02/20/17 22:02 80 113/81 02/20/17 20:06 96.4 80 18 113/81 94 Room Air 02/20/17 20:00 85 02/20/17 19:30 94 Room Air 21 02/20/17 19:30 82 20 Room Air 21 02/20/17 16:22 97.9 72 18 110/72 Room Air 02/20/17 16:00 77 02/20/17 12:00 97.0 72 20 112/75 98 Room Air 02/20/17 12:00 79 Intake and Output 02/21/17 02/22/17 19:00 07:00 Output Total 450 ml Balance -450 ml Output Urine Total 450 ml Laboratory Tests Test 02/21/17 04:45 White Blood Count 7.0 K/UL (4.8-10.8) Red Blood Count 4.78 M/UL (4.70-6.10) Hemoglobin 11.6 G/DL (14.2-18.0) L Hematocrit 36.3 % (42.0-52.0) L Mean Corpuscular Volume 76 FL (80-99) L Mean Corpuscular Hemoglobin 24.3 PG (27.0-31.0) L Mean Corpuscular Hemoglobin Concent 31.9 G/DL (32.0-36.0) L Red Cell Distribution Width 18.7 % (11.6-14.8) H Platelet Count 343 K/UL (150-450) Mean Platelet Volume 6.8 FL (6.5-10.1) Neutrophils (%) (Auto) 65.7 % (45.0-75.0) Lymphocytes (%) (Auto) 20.8 % (20.0-45.0) Monocytes (%) (Auto) 12.1 % (1.0-10.0) H Eosinophils (%) (Auto) 0.5 % (0.0-3.0) Basophils (%) (Auto) 0.8 % (0.0-2.0) Prothrombin Time 19.4 SEC (9.30-11.50) H Prothromb Time International Ratio 1.8 (0.9-1.1) H Sodium Level 136 MMOL/L (136-145) Potassium Level 4.1 MMOL/L (3.5-5.1) Chloride Level 95 MMOL/L (98-107) L Carbon Dioxide Level 37 MMOL/L (21-32) H Anion Gap 4 mmol/L (5-15) L Blood Urea Nitrogen 32 mg/dL (7-18) H Creatinine 1.5 MG/DL (0.55-1.30) H Estimat Glomerular Filtration Rate 59.1 mL/min (>60) Glucose Level 137 MG/DL (74-106) H Calcium Level 9.7 MG/DL (8.5-10.1) Total Bilirubin 4.3 MG/DL (0.2-1.0) H Direct Bilirubin 3.6 MG/DL (0.0-0.3) H Aspartate Amino Transf (AST/SGOT) 105 U/L (15-37) H Alanine Aminotransferase (ALT/SGPT) 142 U/L (12-78) H Alkaline Phosphatase 119 U/L (46-116) H Pro-B-Type Natriuretic Peptide 4106 pg/mL (0-125) H Total Protein 7.3 G/DL (6.4-8.2) Albumin 3.0 G/DL (3.4-5.0) L Globulin 4.3 g/dL Albumin/Globulin Ratio 0.7 (1.0-2.7) L Height (Feet): 5 Height (Inches): 9.00 Weight (Pounds): 178 General Appearance: WD/WN, no apparent distress, alert Cardiovascular: normal rate Respiratory/Chest: normal breath sounds, no respiratory distress Abdominal Exam: normal bowel sounds, non tender, soft Extremities: normal range of motion, non-tender, other - BLE +1 Ileana Savage NMarisol Feb 21, 2017 09:58
--- NOTE | 2017-02-21 10:36 | Consultation ---
Consult Note Consult Note asked to eval for rising serum Cr 56-year-old male presents ED for evaluation. Patient states he has increased leg swelling for the last 3 weeks. Patient has history of CHF. Patient states his water pill is not working. Denies chest pain or shortness of breath. Also notes lower abdominal swelling as well. Denies fevers or chills. Denies cough. No other aggravating or relieving factors. Denies any other associated symptoms Past Medical History: DM, HTN, asthma, COPD Past Surgical History: pacemaker Assessment/Plan status; Acute renal failure mainly due to chf and cardiomyopathy Acute systolic CHF exacerbation A fib/flutter, permanent Left AICD questionable ventricular thrombus hx of recent CVA Hx of CAD with stent placement COPD DM severe pulmonary HTN MR and TR transaminitis - possibly hepatic congestion due to R side heart failure multiple extratesticular cysts versus complex extra testicular cystic lesion in the right hemiscrotum Plan: Optimize cardiac status- Monitor lytes and renal parameters Avoid nephrotoxics per orders JEANNETTE PRESTON Feb 21, 2017 10:36
[2017-02-21 12:12] VITALS: BP 102/60
--- NOTE | 2017-02-21 12:14 | Diagnostic Imaging Report ---
Indication: SOB Technique: One view of the chest Comparison: : 2016 Findings: Heart is enlarged. There is a left chest bifocal AICD. There is a small left pleural effusion, unchanged. There is decreased interstitial congestion Impression: Improved interstitial congestion, over 2 days Other stable findings as described
[2017-02-21] MEDS ORDERED: FUROSEMIDE80 M1 ORAL (12:30)
[2017-02-21] MEDS ORDERED: COUMADIN3 MG ORAL (12:30)
[2017-02-21] MEDS ORDERED: LANOXIN125 MCG ORAL (12:30)
[2017-02-21] MEDS ORDERED: ZAROXOLYN2.5 MG ORAL (12:30)
--- NOTE | 2017-02-21 12:32 | Pulmonology Progress Note ---
Assessment/Plan Problems: (1) CHF exacerbation (2) Atrial flutter (3) ICD (implantable cardioverter-defibrillator) in place Assessment/Plan change lasix to drip 10 mg/hour cxr slightly better cardio to see. pt/ot Subjective ROS Limited/Unobtainable: No Interval Events: improving, wants to go home Allergies: Coded Allergies: No Known Allergies (Unverified , 08/10/16) Objective Last 24 Hour Vital Signs Date Time Temp Pulse Resp B/P (MAP) Pulse Ox O2 Delivery O2 Flow Rate FiO2 02/21/17 12:12 96.7 93 19 102/60 Nasal Cannula 2.0 02/21/17 10:11 64 20 Room Air 21 02/21/17 08:38 96.1 93 18 101/80 Nasal Cannula 2.0 02/21/17 08:00 84 02/21/17 04:13 97.5 77 18 103/60 90 Room Air 02/21/17 04:00 73 02/21/17 00:01 97.6 64 18 122/70 96 Room Air 02/21/17 00:00 79 02/20/17 22:02 80 113/81 02/20/17 20:06 96.4 80 18 113/81 94 Room Air 02/20/17 20:00 85 02/20/17 19:30 94 Room Air 21 02/20/17 19:30 82 20 Room Air 21 02/20/17 16:22 97.9 72 18 110/72 Room Air 02/20/17 16:00 77 Intake and Output 02/21/17 02/22/17 19:00 07:00 Output Total 880 ml Balance -880 ml Output Urine Total 880 ml General Appearance: cachetic HEENT: normocephalic, atraumatic Respiratory/Chest: chest wall non-tender, lungs clear, no respiratory distress Cardiovascular: normal peripheral pulses, normal rate Abdomen: normal bowel sounds, no organomegaly Extremities: other - edema decreasing 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, no motor/sensory deficits Lymphatic: no neck adenopathy, no groin adenopathy Musculoskeletal: no effusion Laboratory Tests 02/21/17 04:45: White Blood Count 7.0, Red Blood Count 4.78, Hemoglobin 11.6L, Hematocrit 36.3L , Mean Corpuscular Volume 76L, Mean Corpuscular Hemoglobin 24.3L, Mean Corpuscular Hemoglobin Concent 31.9L, Red Cell Distribution Width 18.7H, Platelet Count 343, Mean Platelet Volume 6.8, Neutrophils (%) (Auto) 65.7, Lymphocytes (%) (Auto) 20.8, Monocytes (%) (Auto) 12.1H, Eosinophils (%) (Auto) 0.5, Basophils (%) (Auto) 0.8, Prothrombin Time 19.4H, Prothromb Time International Ratio 1.8H, Sodium Level 136, Potassium Level 4.1, Chloride Level 95L, Carbon Dioxide Level 37H, Anion Gap 4L, Blood Urea Nitrogen 32H, Creatinine 1.5H, Estimat Glomerular Filtration Rate 59.1, Glucose Level 137H, Calcium Level 9.7, Total Bilirubin 4.3H, Direct Bilirubin 3.6H, Aspartate Amino Transf (AST/SGOT) 105H, Alanine Aminotransferase (ALT/SGPT) 142H, Alkaline Phosphatase 119H, Pro-B-Type Natriuretic Peptide 4106H, Total Protein 7.3, Albumin 3.0L, Globulin 4.3, Albumin/Globulin Ratio 0.7L Current Medications Medications (Trade) Dose Ordered Sig/Ana Route PRN Reason Start Time Stop Time Status Last Admin Dose Admin Acetaminophen (Tylenol) 650 mg Q4H PRN ORAL Fever 02/15/17 14:30 03/17/17 14:29 Albuterol/ Ipratropium (Albuterol/ Ipratropium) 3 ml Q4H PRN HHN Shortness of Breath 02/18/17 09:30 02/23/17 09:29 Amiodarone HCl (Cordarone) 200 mg DAILY ORAL 02/18/17 09:00 03/17/17 20:59 02/21/17 08:17 Aspirin (Ecotrin) 81 mg DAILY ORAL 02/16/17 09:00 03/18/17 08:59 02/21/17 08:18 Carvedilol (Coreg) 25 mg EVERY 12 HOURS ORAL 02/15/17 21:00 03/17/17 20:59 02/20/17 22:02 Clopidogrel Bisulfate (Plavix) 75 mg DAILY ORAL 02/16/17 09:00 03/18/17 08:59 02/21/17 08:18 Dextrose (Dextrose 50%) STAT PRN IV Hypoglycemia 02/15/17 14:30 03/17/17 14:29 Digoxin (Lanoxin) 0.125 mg EVERY OTHER DAY ORAL 02/22/17 09:00 03/18/17 08:59 Furosemide (Lasix) 80 mg EVERY 12 HOURS ORAL 02/21/17 21:00 03/23/17 20:59 UNV Furosemide 100 mg/ Dextrose 100 ml @ 10 mls/hr Q10H IV 02/17/17 15:00 03/19/17 14:59 02/21/17 10:33 Heparin Sodium (Porcine) (Heparin 5000 units/ml) 5,000 units EVERY 12 HOURS SUBQ 02/15/17 21:00 03/17/17 20:59 02/21/17 08:25 Insulin Aspart (NovoLOG) BEFORE MEALS AND HS SUBQ 02/15/17 16:30 03/17/17 16:29 02/21/17 06:50 Metolazone (Zaroxolyn) 5 mg DAILY ORAL 02/18/17 17:45 03/20/17 17:44 02/21/17 08:17 Ondansetron HCl (Zofran) 4 mg Q6H PRN IVP Nausea & Vomiting 02/15/17 14:30 03/17/17 14:29 Polyethylene Glycol (Miralax) 17 gm DAILYPRN PRN ORAL Constipation 02/15/17 14:30 03/17/17 14:29 Potassium Chloride (K-Dur) 40 meq QPM ORAL 02/15/17 16:30 03/17/17 16:29 02/20/17 18:01 Temazepam (Restoril) 15 mg HSPRN PRN ORAL Insomnia 02/15/17 14:30 02/22/17 14:29 Warfarin Sodium (Coumadin per pharmacy) 1 ea DAILY PRN MISC Per rx protocol 02/17/17 18:15 03/19/17 18:14 Warfarin Sodium (Coumadin) 6 mg COUMADIN ORAL 02/19/17 17:00 02/24/17 16:59 02/20/17 18:01 SHIMON WILLAMS Feb 21, 2017 12:32
[2017-02-21] MEDS ORDERED: Furosemide 80mg tab ORAL SCH (21:00)
[2017-02-22] MEDS ORDERED: Digoxin 0.125mg tab ORAL SCH (09:00)
--- NOTE | 2017-02-22 11:44 | Discharge Summary ---
Discharge Summary Hospital Course Date of Admission Feb 15, 2017 at 11:55 Date of Discharge Feb 21, 2017 at 14:47 Admitting Diagnosis CHF HPI Sai Yepez is a 56 year old male who was admitted on Feb 15, 2017 at 11:55 for Congestive Heart Failure Hospital Course dc summary #[id number] Discharge Medications New Medications: Furosemide* (Lasix*) 80 Mg Tablet 80 MG ORAL Q12HR for 30 Days, TAB Digoxin* (Lanoxin*) 125 Mcg Tablet 0.125 MG ORAL EVERY OTHER DAY for 30 Days, TAB Metolazone (Metolazone) 2.5 Mg Tablet 5 MG ORAL DAILY for 30 Days, TAB Warfarin Sod* (Coumadin*) 3 Mg Tablet 6 MG ORAL COUMADIN for 30 Days, TAB Continued Medications: Amiodarone Hcl* (Pacerone*) 200 Mg Tablet 200 MG ORAL EVERY 12 HOURS for 30 Days, TAB Aspirin* (Aspir 81*) 81 Mg Tablet.dr 81 MG ORAL DAILY, TAB Carvedilol* (Carvedilol*) 25 Mg Tablet 25 MG ORAL EVERY 12 HOURS, TAB Discharge Condition Upon Discharge: stable Discharge Disposition Patient was discharged home Discharge Diagnoses: Ronak (Alexis)Irene NP Feb 22, 2017 11:44
--- NOTE | 2017-02-23 04:45 | Discharge Summary 2 SIG ---
DATE OF ADMISSION: 02/15/2017 DATE OF DISCHARGE: 02/21/2017 REASON FOR ADMISSION: 56-year-old male with a past medical history of congestive heart failure, presented to emergency department with increased leg swelling for the last three weeks. He stated that his diuretic pill did not work. He denied chest pain or shortness of breath. He reported abdominal swelling and scrotal edema. The patient denied fever or chills. No cough. The patient with a past medical history of diabetes, hypertension, asthma, COPD, history of AICD in 2008 and stent placement. Workup in the emergency room revealed stable vital signs. Pulse oximetry was stable on room air. No fever. The patient complained of shortness of breath. Laboratory workup revealed no leukocytosis. Stable hemoglobin and hematocrit. Electrolytes within normal limits. Troponin negative. Pro BNP above 5000. EKG revealed atrial fibrillation. No acute ischemic changes. Chest x-ray revealed pulmonary congestion. The patient was admitted for CHF exacerbation. HOSPITAL STAY: The patient was admitted to telemetry floor. The patient was started on Lasix drip. Cardiology consult was requested. Intake and output, renal parameters, and electrolytes were closely monitored and corrected as needed. Echocardiogram revealed ejection fraction of 15% and right ventricular systolic pressure of 93 consistent with severe pulmonary hypertension as well as evidence of severe mitral regurgitation and tricuspid regurgitation. Medical management of CHF was done with beta-shar, digoxin, diuretic, and amiodarone. Cardiology closely followed, unable to add SHABNAM inhibitor due to the low blood pressure. Per Cardiology, atrial fibrillation/flutter was permanent, rate was controlled with amiodarone and beta-shar. The patient was restarted on anticoagulation/Coumadin as per family intervention specialist. Pharmacy was dosing Coumadin to reach therapeutic INR. Xarelto was not appropriate for LV thrombus in the setting of atrial fibrillation. Echocardiogram per family intervention specialist showed questionable left ventricular thrombus. Venous duplex of bilateral lower extremities revealed no evidence of acute DVT Cake Press Operator Helper recommended to resume SHABNAM inhibitor when BP allows, however blood pressure was still was low. Amiodarone dose decreased due to elevated LFT. The patient noted to have elevated LFT. GI followed. Abdominal ultrasound revealed gallbladder wall thickening. No gallstones, likely reactive due to the adjacent hepatocellular inflammation or due to whatever hemodynamic derangements were causing ascites.Hepatitis panel still pending. Per GI, transaminitis was possibly due to the hepatic congestion secondary to the right-sided heart failure. Per GI, no evidence of obstruction on the imaging studies despite elevated bilirubin, was noted. We will follow up with hepatitis serology when become available and will contact the patient if abnormal results. The patient never had endoscopy or colonoscopy. GI recommended to have it as an outpatient when he clinically improves. The patient had undergone testicular ultrasound secondary to scrotal edema, which revealed multiple extratesticular cysts versus complex extratesticular cystic lesion in the right hemiscrotum. Subsequently, Urology consult was requested. Urologist seen and evaluated the patient. Per Urology, the patient probably had right spermatocele , no need for intervention. Per urologist, spermatocele, not related to generalized scrotal edema caused by CHF exacerbation. He recommended outpatient follow up biannually for physical examination of testicles. Follow up chest x-ray revealed improved interstitial congestion over two days. Pro BNP trending down from initial 5720 down to 4106. The patient had good urine output, scrotal and leg edema decreased. Venous duplex of bilateral lower extremities was negative. Supplemental oxygen and pulmonary toilet provided as needed to keep saturation above 92%. Pulse oximetry was stable on room air prior to discharge. The patient was stable for discharge home on medical management with congestive heart failure such as diuretics, amiodarone, digoxin, and Coreg, restarted on Coumadin. The patient was encouraged to be compliant with medication. Diuretic dose was optimized and increased. The patient was on Lasix and metolazone. Pocket Creaser closely followed the patient. The patient likely has chronic renal insufficiency, as per milk driver.Acute renal failure was likely due to the CHF and cardiomyopathy. Pocket Creaser recommended to avoid nephrotoxics, monitor electrolytes and renal parameters. The patient was working with physical and occupational therapists. The patient was stable for discharge. FINAL DIAGNOSES: 1. Acute systolic congestive heart failure exacerbation. 2. Atrial fibrillation/flutter, permanent with controlled ventricular rate. 3. Left automatic implantable cardioverter-defibrillator. 4. Questionable ventricular thrombus. 5. History of recent cerebrovascular accident. 6. History of coronary artery disease with stent placement. 7. Chronic obstructive pulmonary disease. 8. Diabetes. 9. Severe pulmonary hypertension. 10. Mitral regurgitation and tricuspid regurgitation. 11. Acute renal failure secondary to congestive heart failure and cardiomyopathy. 12. Possibly hepatic congestion due to right-sided heart failure. 13. Transaminitis 14. Likely right spermatocele. DISCHARGE MEDICATIONS: See medication reconciliation list. DISCHARGE INSTRUCTIONS: The patient was discharged home. Follow up with the primary medical doctor in three to four days to check INR . Encourage compliance with medications. Cate George M.D. Irene PetersenCrouse HospitalManas NRobertPRobert DR: Reed JOB#: [id number] CC: BLAINE
== END 2017-02-21 14:47 | disposition home or self-care (01) | DRG 194 ==
LOC: EMR 10:23 → 2E 11:55 → EDBEDREQ 12:00
DX: I11.0 Hypertensive heart disease with heart failure (principal); N17.9 Acute kidney failure, unspecified; I48.92 Unspecified atrial flutter; I42.9 Cardiomyopathy, unspecified; I27.20 Pulmonary hypertension, unspecified; I36.1 Nonrheumatic tricuspid (valve) insufficiency; I50.23 Acute on chronic systolic (congestive) heart failure; Z79.01 Long term (current) use of anticoagulants; Z95.810 Presence of automatic (implantable) cardiac defibrillator; Z86.73 Personal history of transient ischemic attack (TIA), and cerebral infarction without residual deficits; I34.0 Nonrheumatic mitral (valve) insufficiency; I48.2 Chronic atrial fibrillation; N43.40 Spermatocele of epididymis, unspecified; N44.2 Benign cyst of testis; N50.89 Other specified disorders of the male genital organs
CPT/HCPCS: 36415; 71010; 76700; 76870; 80048; 80053; 80162; 82248; 82550; 82553; 82962; 83735; 83880; 84484; 85025; 85610; 85730; 86705; 86709; 86803; 87070; 87205; 87340; 93005; 93306; 93970; 94664; 94760; 99285; J1815; J8499

== ENCOUNTER 2017-04-26 12:22 | Emergency (ER) | payer OTHER ==
[~2017-04-26] VITALS: Ht 175.3 cm; Wt 90.7 kg
[2017-04-26 12:22] VITALS: BP 0/0
[~2017-04-26 12:22] MED LIST changes: +COUMADIN3 MG ORAL; +FUROSEMIDE80 M1 ORAL; +LANOXIN125 MCG ORAL; +XARELTO10 MG ORAL; +ZAROXOLYN2.5 MG ORAL
[2017-04-26] MEDS ORDERED: ATORVASTATIN CA10 MG ORAL (12:23)
[2017-04-26] MEDS ORDERED: METFORMIN HCL500 M1 ORAL (12:23)
[2017-04-26] MEDS ORDERED: FUROSEMIDE20 M1 ORAL (12:23)
[2017-04-26] MEDS ORDERED: DIGOXIN125 MCG ORAL (12:23)
[2017-04-26] MEDS ORDERED: FENOFIBRATE54 MG ORAL (12:23)
[2017-04-26] MEDS ORDERED: PLAVIX75 MG ORAL (12:23)
[2017-04-26] MEDS ORDERED: Magnesium Sulfate 2ml Inj ONE (12:50)
[2017-04-26] MEDS ORDERED: Atropine Inj 1mg/10ml Syr ONE (12:50)
[2017-04-26] MEDS ORDERED: Calcium Chloride 10% 10ml carpuject IVP ONE (12:50)
--- NOTE | 2017-04-26 13:00 | Emergency Room Report ---
History of Present Illness General Chief Complaint: CPR Source: Family Member, EMS Present Illness HPI Patient was brought in by paramedics CPR in progress Patient was reported to walk outside his house and essentially collapsed Patient was brought in with 4 amps of epinephrine given in route patient had been intubated and CPR in progress History reveals cardiac disease with several stenting Patient has been somewhat weak over the past few days this is from the family No reports of vomiting or diarrhea And patient was witnessed collapsing and paramedics summoned Allergies: Coded Allergies: No Known Allergies (Unverified , 08/10/16) Patient History Limited by: medical condition Past Medical History: see triage record Pertinent Family History: none Reviewed Nursing Documentation: PMH: Agreed, PSxH: Agreed Nursing Documentation-PMH Hx Hypertension: Yes Hx Pacemaker: Yes - 2008 Hx Asthma: Yes Hx COPD: Yes Hx Diabetes: Yes Hx Cancer: No Hx Gastrointestinal Problems: No Hx Dialysis: No Hx Neurological Problems: No Hx Cerebrovascular Accident: Yes Hx Transient Ischemic Attacks: No Hx Dementia: No Hx Alzheimer's Disease: No Hx Parkinson's Disease: No Hx Meningitis: No Hx Encephalitis: No Hx Epilepsy: No Hx Multiple Sclerosis: No Hx Cerebral Palsy: No Hx Amyotrophic Lat Sclerosis: No Hx Guillian-[place] Syndrome: No Hx Paralysis: No Hx Peripheral Neuropathy: No Hx Spinal Cord Injury: No Hx Head Trauma: No Hx Traumatic Brain Injury: No Hx Memory Loss: No Hx Concentration Difficulty: No Hx Speech Problem: No Hx Tremors: No Hx Vertigo: No Hx Dizziness: No Hx Syncope: No Hx Headaches: No Hx Aphasia: No Hx Dysphasia: No Hx Numbness: No Hx Weakness: No Hx Fatigue: No Hx Neurologic Surgery: No Hx Brain Shunt: No Review of Systems All Other Systems: limited - Other than the ones mentioned in the history of present illness all others are reviewed however they do stay limited due to the patient's mental status Physical Exam Vital Signs Date Time Temp Pulse Resp B/P (MAP) Pulse Ox O2 Delivery O2 Flow Rate FiO2 04/26/17 12:15 0 0 0/0 0 Room Air Sp02 EP Interpretation: reviewed, abnormal - Plus was not able to be obtained patient is hypoxic which is abnormal General Appearance: severe distress Head: normocephalic, atraumatic Eyes: bilateral eye other - Fixed at 4 mm ENT: other - ET tube in place, I did check the positioning and it was in the airway through the vocal cords, ET tube is 7.0 mm at 25 centimeters, this was repositioned to 23 Neck: supple, other - 4 mm JVD on the right Respiratory: other - ET tube in place with bag valve ventilation patient has crackles diffusely in lower lobe, no spontaneous respiration Cardiovascular #1: other - asystole no heart sounds Gastrointestinal: soft - Evidence of mid abdominal surgical scar Musculoskeletal: other - Patient is GCS 3 unresponsive Neurologic: other - gcs 3 unresponsive Skin: other - mild swelling diffusely Lymphatic: no adenopathy Procedures Critical Care Time Critical Care Time 20 minutes for multiple re\re evaluations initial critical presentation discussion with family not including any procedural time,, Medical Decision Making Diagnostic Impression: Primary Impression: Cardiopulmonary arrest ER Course Upon arrival patient is in CPR Patient remained in asystole We did have episode of V. fib on 2 occasions and patient was defibrillated Patient provided with magnesium and calcium Epinephrine and atropine in the ER Refer to the code sheet for full specifics After further and multiple interventions patient does not appear to have any response All attempts appear to be futile Patient had I O. in the left leg by paramedics which flows well After multiple interventions patient also had ultrasound visualization of the cardiac region, there are no signs of cardiac activity and patient pronounced at 1235 I did speak to the family they are aware of the diagnosis and end-of-life Rhythm Strip Diag. Results EP Interpretation: yes Rate: 0 Rhythm: other - asystole Last Vital Signs Date Time Temp Pulse Resp B/P (MAP) Pulse Ox O2 Delivery O2 Flow Rate FiO2 04/26/17 12:22 0 0 0/0 0 Room Air Status: worsened Disposition: Condition: Critical HADLEY ARCE D.O. Apr 26, 2017 12:59
[2017-04-26 14:00] VITALS: BP 0/0
== END 2017-04-26 14:00 | disposition expired ==
LOC: EDBD 12:22 → EMR 12:49
DX: I46.9 Cardiac arrest, cause unspecified (principal); I10 Essential (primary) hypertension; J44.9 Chronic obstructive pulmonary disease, unspecified; E11.9 Type 2 diabetes mellitus without complications; Z86.73 Personal history of transient ischemic attack (TIA), and cerebral infarction without residual deficits; I25.10 Atherosclerotic heart disease of native coronary artery without angina pectoris; Z95.5 Presence of coronary angioplasty implant and graft; Z95.0 Presence of cardiac pacemaker
CPT/HCPCS: 92950; 99291; J0171; J3475; J3490